=== PATIENT | female | born 1930 | race Caucasian/White ===

== ENCOUNTER 2016-05-14 00:47 | Inpatient (IN) | payer MEDICARE, BC ==
[2016-05-14] MEDS ORDERED: Sodium Chloride 0.9% 10 ML Syringe FLUSH PRN ×2 (01:12→01:51)
--- NOTE | 2016-05-14 01:47 | EDM.PDOC ---
ED HPI GENERAL MEDICAL PROBLEM - General Chief Complaint: General Stated Complaint: COUGHING Time Seen by Provider: 05/14/16 01:10 Source of Information: Reports: Patient, Family History Limitations: Reports: No limitations - History of Present Illness Onset: today, gradual Onset Date: 05/13/16 (son states the patient has become very week and is not acting right, Has a cough.) Duration: Hour(s): Location: Reports: chest Severity: moderate Improves with: Reports: None Worsens with: Reports: None Associated Symptoms: Reports: cough, fever/chills - Related Data Allergies Allergy/AdvReac Type Severity Reaction Status Date / Time No Known Allergies Allergy Verified 05/14/16 01:08 Home Meds: Home Meds Aspirin/Calcium Carbonate/Mag [Aspirin Buffered 325 mg Tab] 325 mg PO DAILY [History] Bimatoprost [LUMIGAN 0.01% Ophth Soln] 1 drop EYEBOTH QPM 06/18/14 [History] Cholecalciferol (Vitamin D3) [Vitamin D3] 2,000 unit PO DAILY 06/18/14 [History] Cyanocobalamin (Vitamin B12) [Vitamin B12] 1,000 mcg IM ONETIME 06/18/14 [ History] Diltiazem HCl [Dilt-Xr] 180 mg PO DAILY 06/18/14 [History] Ferrous Sulfate [Iron] 325 mg PO DAILY 06/18/14 [History] Ibuprofen [Advil] 200 mg PO TID 06/18/14 [History] Loratadine [Claritin] 10 mg PO DAILY 06/18/14 [History] Lutein 20 mg PO DAILY 06/18/14 [History] Lutein/Minerals/Vit A,C & E [Ocuvite] 1 tab PO DAILY 06/18/14 [History] Magnesium 200 mg PO DAILY 06/18/14 [History] Timolol Maleate [Timoptic 0.5% Ocudose] 1 drop EYELF DAILY 06/18/14 [History] Valsartan/Hydrochlorothiazide [Valsartan-Hctz 160-12.5 mg Tab] 1 each PO DAILY 06/18/14 [History] atorvaSTATin Calcium [Atorvastatin Calcium] 5 mg PO DAILY 06/18/14 [History] glipiZIDE [Glipizide ER] 10 mg PO BID 06/18/14 [History] metFORMIN [Glucophage] 1,000 mg PO BID 06/18/14 [History] Carbidopa/Levodopa [Carbidopa-Levodopa 25-100] 1.5 tab PO TID 06/19/14 [History] Clopidogrel [Plavix] 75 mg PO DAILY #30 tablet 06/19/14 [Rx] Past Medical History HEENT History: Reports: Cataract, Impaired vision, Macular degeneration Cardiovascular History: Reports: Afib, High cholesterol, Hypertension Neurological History: Reports: TIA Endocrine/Metabolic History: Reports: Diabetes, type II - Past Surgical History HEENT Surgical History: Reports: Cataract surgery Social & Family History - Tobacco Use Smoking Status *Q: Never Smoker Second Hand Smoke Exposure: No - Alcohol Use Days Per Week of Alcohol Use: 0 ED ROS GENERAL - Review of Systems Review Of Systems: See Below Constitutional: Reports: fever HEENT: Reports: No symptoms Respiratory: Reports: Cough Endocrine: Reports: fatigue GI/Abdominal: Reports: No symptoms : Reports: no symptoms Musculoskeletal: Reports: no symptoms Skin: Reports: bruising Neurological: Reports: No Symptoms Psychiatric: Reports: No symptoms Immunologic: Reports: no symptoms ED EXAM, GENERAL - Physical Exam Exam: See Below Exam Limited By: No limitations General Appearance: alert Eye Exam: bilateral eye: PERRL Ears: normal external exam, normal canal, normal TMs Nose: normal inspection, normal mucosa Throat/Mouth: Normal inspection Head: atraumatic, normocephalic Neck: normal inspection, supple Respiratory/Chest: crackles Cardiovascular: normal peripheral pulses, regular rate, rhythm GI/Abdominal: normal bowel sounds Extremities: normal inspection, normal range of motion Neurological: alert, oriented Psychiatric: normal affect, normal mood Skin Exam: Warm, Dry Lymphatic: no adenopathy Course - Vital Signs Last Recorded V/S: Last Vital Signs Temp 38.1 C 05/14/16 01:12 Pulse 107 H 05/14/16 00:56 Resp 20 05/14/16 00:56 BP 137/71 05/14/16 00:56 Pulse Ox 97 05/14/16 00:56 - Orders/Labs/Meds Orders: Active Orders 24 hr Category Date Time Status Chest 2V [CR] Stat Exams 05/14/16 01:12 Ordered COMPREHENSIVE METABOLIC PN,CMP [CHEM] Stat Lab 05/14/16 01:12 Ordered INFLUENZA A+B AG SCREEN [RM] Stat Lab 05/14/16 01:12 Uncollected UA W/MICROSCOPIC [URIN] Stat Lab 05/14/16 01:12 Uncollected Sodium Chloride 0.9% [Saline Flush] Med 05/14/16 01:12 Ordered 10 ml FLUSH ASDIRECTED PRN cefTRIAXone [Rocephin] Med 05/14/16 01:45 Ordered 1 gm IV BID Saline Lock Insert [OM.PC] Routine Oth 05/14/16 01:12 Ordered Medication Orders Ceftriaxone Sodium (Rocephin) 1 gm IV BID HANNA Sodium Chloride (Saline Flush) 10 ml FLUSH ASDIRECTED PRN PRN Reason: Keep Vein Open Labs: Laboratory Tests 05/14/16 Range/Units 01:12 WBC 8.3 (5.0-10.0) 10^3/uL RBC 3.09 L (4.00-5.50) 10^6/uL Hgb 9.8 L (12.0-16.0) g/dL Hct 29.3 L (37.0-47.0) % MCV 94.8 H (82.0-94.0) fL MCH 31.7 (27.0-32.0) pg MCHC 33.4 (33.0-38.0) g/dL RDW Coeff of Andres 13.4 (11.0-15.0) % Plt Count 259 (150-400) 10^3/uL Neut % (Auto) 62.1 (35-85) % Lymph % (Auto) 19.9 (10-55) % Garza % (Auto) 17.1 H (0-16) % Eos % (Auto) 0.7 (0-5) % Baso % (Auto) 0.2 (0-3) % Neut # 5.16 (1.80-7.00) 10^3/uL Lymph # 1.65 (1.00-4.80) 10^3/uL Garza # 1.42 H (0.00-0.80) 10^3/uL Eos # 0.06 (0.00-0.45) 10^3/uL Baso # 0.02 10^3/uL Meds: Medications Generic Name Dose Route Start Last Admin Trade Name Freq PRN Reason Stop Dose Admin Ceftriaxone Sodium 1 gm 05/14/16 01:45 Rocephin IV BID HANNA Sodium Chloride 10 ml 05/14/16 01:12 Saline Flush FLUSH ASDIRECTED PRN Keep Vein Open Departure - Departure Time of Disposition: 01:47 Disposition: Admitted As Inpatient 67 Condition: fair Clinical Impression: Pneumonia - Problem List Review Problem List Initiated/Reviewed/Updated: Yes - My Orders Last 24 Hours: My Active Orders 05/14/16 01:12 Chest 2V [CR] Stat COMPREHENSIVE METABOLIC PN,CMP [CHEM] Stat INFLUENZA A+B AG SCREEN [RM] Stat UA W/MICROSCOPIC [URIN] Stat Sodium Chloride 0.9% [Saline Flush] 10 ml FLUSH ASDIRECTED PRN Saline Lock Insert [OM.PC] Routine 05/14/16 01:45 cefTRIAXone [Rocephin] 1 gm IV BID - Assessment/Plan Admission H&P: Please use this note as an admission H&P Last 24 Hours: My Active Orders 05/14/16 01:12 Chest 2V [CR] Stat COMPREHENSIVE METABOLIC PN,CMP [CHEM] Stat INFLUENZA A+B AG SCREEN [RM] Stat UA W/MICROSCOPIC [URIN] Stat Sodium Chloride 0.9% [Saline Flush] 10 ml FLUSH ASDIRECTED PRN Saline Lock Insert [OM.PC] Routine 05/14/16 01:45 cefTRIAXone [Rocephin] 1 gm IV BID
[2016-05-14] MEDS ORDERED: Acetaminophen 325 MG Tab PO PRN (01:51)
[2016-05-14] MEDS ORDERED: Cyanocobalamin (Vitamin B12) 1,000 MCG/ML SDV IM SCH (02:15)
[2016-05-14] MEDS: cefTRIAXone 1 GM Vial IV SCH ×3 (02:51→19:57)
[2016-05-14] MEDS: Sodium Chloride 0.9% 1,000 ML IV SCH ×2 (02:57→20:09)
[2016-05-14] MEDS: Levofloxacin/Dextrose 5%-Water 500 MG in Premix Bag 1 BAG IV SCH (03:00)
[2016-05-14] MEDS ORDERED: Non-Formulary Medication 1 Each (Metformin [Glucophage] 1,000 MG) PO SCH (08:00)
[2016-05-14] MEDS ORDERED: Non-Formulary Medication 1 Each (Ibuprofen [Advil] 200 MG) PO SCH (08:00)
[2016-05-14] MEDS ORDERED: Non-Formulary Medication 1 Each (Ferrous Sulfate [Iron] 325 MG) PO SCH (08:00)
[2016-05-14] MEDS ORDERED: Non-Formulary Medication 1 Each (Aspirin/Calcium Carbonate/Mag [Aspirin Buffered 325 Mg Ta PO SCH (08:00)
[2016-05-14] MEDS ORDERED: MAGNESIUM 200 MG PO SCH (08:00)
[2016-05-14] MEDS ORDERED: Non-Formulary Medication 1 Each (Glipizide [Glipizide Er] 10 MG) PO SCH (08:00)
[2016-05-14] MEDS ORDERED: Non-Formulary Medication 1 Each (Loratadine [Claritin] 10 MG) PO SCH (08:00)
[2016-05-14] MEDS ORDERED: Non-Formulary Medication 1 Each (Lutein/Minerals/Vit A,C & E [Ocuvite] 1 TAB) PO SCH (08:00)
[2016-05-14] MEDS ORDERED: DILTIAZEM HCL 180 MG PO SCH (08:00)
[2016-05-14] MEDS ORDERED: TIMOLOL MALEATE EYELF SCH (08:00)
[2016-05-14] MEDS ORDERED: atorvaSTATin 10 MG Tab PO SCH (08:00)
[2016-05-14] MEDS ORDERED: Non-Formulary Medication 1 Each (Cholecalciferol (Vitamin D3) [Vitamin D3] 2,000 UNIT) PO SCH (08:00)
[2016-05-14] MEDS: Clopidogrel 75 MG Tab PO SCH (08:26)
[2016-05-14] MEDS: Carbidopa/Levodopa 25-100 MG Tab PO SCH ×3 (08:27→19:57)
[2016-05-14] MEDS ORDERED: Ibuprofen 200 MG Tab PO SCH (09:30)
[2016-05-14] MEDS ORDERED: Diltiazem 180 MG Cap.CD PO SCH (09:30)
[2016-05-14] MEDS ORDERED: Aspirin 325 MG Tab.EC PO SCH (09:30)
[2016-05-14] MEDS ORDERED: Beta-Carotene (Vitamin A) w/Vitamin C & E plus Minerals Tab PO SCH (09:45)
[2016-05-14] MEDS ORDERED: Albuterol 0.083% 2.5 MG/3 ML Neb Soln NEB PRN (09:45)
[2016-05-14] MEDS: Loratadine 10 MG Tab PO SCH (09:54)
[2016-05-14] MEDS: glipiZIDE 5 MG Tab.ER PO SCH ×2 (09:55→17:22)
[2016-05-14] MEDS: metFORMIN 500 MG Tab PO SCH ×2 (09:55→17:22)
[2016-05-14] MEDS: Hydrochlorothiazide 12.5 MG Cap PO SCH ×2 (09:56→12:34)
[2016-05-14] MEDS: Cholecalciferol (Vitamin D3) 1,000 Unit Tab PO SCH (09:56)
[2016-05-14] MEDS: Losartan 100 MG Tab PO SCH (09:56)
[2016-05-14] MEDS: Non-Formulary Medication 1 Each (Lutein [Lutein] 20 MG) PO SCH (09:59)
[2016-05-14] MEDS ORDERED: Enoxaparin 40 MG/0.4 ML Syringe SUBCUT SCH (10:00)
--- NOTE | 2016-05-14 10:00 | PCM.PN ---
- General Info Date of Service: 05/14/16 Functional Status: Reports: pain controlled, tolerating diet, ambulating - Review of Systems General: Reports: No Symptoms, Weakness HEENT: Reports: no symptoms Pulmonary: Reports: cough, other Cardiovascular: Reports: No Symptoms Gastrointestinal: Reports: No symptoms Genitourinary: Reports: no symptoms Musculoskeletal: Reports: no symptoms Skin: Reports: no symptoms Neurological: Reports: No Symptoms Psychiatric: Reports: no symptoms (Still hearing crackles in right lower lung bases) Systems Review Comment:: Still some crackels in the right lower lung bases. States she feels much better this morning, and looks to be improving. - Patient Data Vitals - most recent: Last Vital Signs Temp 37.9 C 05/14/16 04:00 Pulse 96 05/14/16 04:00 Resp 16 05/14/16 04:00 BP 104/56 L 05/14/16 04:00 Pulse Ox 94 L 05/14/16 04:00 Weight - most recent: 80.286 kg Lab Results last 24 hrs: Laboratory Results - last 24 hr 05/14/16 Range/Units 08:13 POC Glucose 113 H (75-105) mg/dl Med Orders - Current: Current Medications Acetaminophen (Tylenol) 650 mg PO Q4H PRN PRN Reason: Pain (Mild 1-3)/fever Last Admin: 05/14/16 04:02 Dose: 650 mg Albuterol (Proventil Neb Soln) 2.5 mg NEB Q4H PRN PRN Reason: Dyspnea Albuterol/Ipratropium (Duoneb 3.0-0.5 Mg/3 Ml) 3 ml NEB QIDRT [facility] Aspirin (Ecotrin) 325 mg PO DAILY [facility] Atorvastatin Calcium (Lipitor) 5 mg PO DAILY [facility] Last Admin: 05/14/16 08:28 Dose: 5 mg Carbidopa/Levodopa (Sinemet 25-100 Mg) 1.5 tab PO TID [facility] Last Admin: 05/14/16 08:27 Dose: 1.5 tab Ceftriaxone Sodium (Rocephin) 1 gm IV BID [facility] Last Admin: 05/14/16 08:28 Dose: 1 gm Cholecalciferol (Vitamin D3) 2,000 units PO DAILY [facility] Clopidogrel Bisulfate (Plavix) 75 mg PO DAILY [facility] Last Admin: 05/14/16 08:26 Dose: 75 mg Cyanocobalamin (Vitamin B12) 1,000 mcg IM ONETIME [facility] Diltiazem HCl (Cardizem Cd) 180 mg PO DAILY [facility] Ferrous Sulfate (Ferrous Sulfate) 324 mg PO DAILY@1200 [facility] Glipizide (Glucotrol Xl) 10 mg PO BIDMEALS [facility] Hydrochlorothiazide (Hydrochlorothiazide) 12.5 mg PO DAILY [facility] Levofloxacin/Dextrose 500 mg/ (Premix) 100 mls @ 100 mls/hr IV Q24H [facility] Last Admin: 05/14/16 03:00 Dose: 100 mls/hr Sodium Chloride (Normal Saline) 1,000 mls @ 50 mls/hr IV ASDIRECTED [facility] Last Admin: 05/14/16 02:57 Dose: 50 mls/hr Ibuprofen (Motrin) 200 mg PO TID [facility] Latanoprost (Xalatan 0.005% Ophth Soln) 0 ml EYEBOTH QPM [facility] Loratadine (Claritin) 10 mg PO DAILY [facility] Losartan Potassium (Cozaar) 100 mg PO DAILY [facility] Magnesium Oxide (Magnesium Oxide) 250 mg PO DAILY [facility] Metformin HCl (Glucophage) 1,000 mg PO BIDMEALS [facility] Multivitamins/Minerals (Prosight) 1 tab PO DAILY [facility] Non-Formulary Medication (Lutein [Lutein]) 20 mg PO DAILY [facility] Sodium Chloride (Saline Flush) 10 ml FLUSH ASDIRECTED PRN PRN Reason: Keep Vein Open Sodium Chloride (Saline Flush) 10 ml FLUSH ASDIRECTED PRN PRN Reason: Keep Vein Open Timolol Maleate (Timoptic 0.5% Ophth Soln) 0 ml EYELF DAILY [facility] Discontinued Medications Non-Formulary Medication (Aspirin/Calcium Carbonate/Mag [Aspirin Buffered 325 Mg Tab]) 325 mg PO DAILY [facility] Non-Formulary Medication (Bimatoprost [Lumigan 0.01% Ophth Soln]) 1 drop EYEBOTH QPM [facility] Non-Formulary Medication (Cholecalciferol (Vitamin D3) [Vitamin D3]) 2,000 unit PO DAILY [facility] Non-Formulary Medication (Diltiazem Hcl [Dilt-Xr]) 180 mg PO DAILY [facility] Non-Formulary Medication (Ferrous Sulfate [Iron]) 325 mg PO DAILY [facility] Non-Formulary Medication (Ibuprofen [Advil]) 200 mg PO TID [facility] Non-Formulary Medication (Loratadine [Claritin]) 10 mg PO DAILY [facility] Non-Formulary Medication (Lutein/Minerals/Vit A,C & E [Ocuvite]) 1 tab PO DAILY [facility] Non-Formulary Medication (Magnesium [Magnesium]) 200 mg PO DAILY [facility] Non-Formulary Medication (Timolol Maleate [Timoptic 0.5% Ocudose]) 1 drop EYELF DAILY [facility] Non-Formulary Medication (Valsartan/Hydrochlorothiazide [Valsartan-Hctz 160- 12.5 Mg Tab]) 1 each PO DAILY [facility] Non-Formulary Medication (Glipizide [Glipizide Er]) 10 mg PO BID [facility] Non-Formulary Medication (Metformin [Glucophage]) 1,000 mg PO BID [facility] - Problem List Review Problem List Initiated/Reviewed/Updated: Yes - My Orders Last 24 Hours: My Active Orders 05/14/16 09:30 Aspirin [Ecotrin] 325 mg PO DAILY Cholecalciferol (Vitamin D3) [Vitamin D3] 2,000 units PO DAILY Diltiazem [Cardizem CD] 180 mg PO DAILY Ibuprofen [Motrin] 200 mg PO TID Loratadine [Claritin] 10 mg PO DAILY glipiZIDE [Glucotrol XL] 10 mg PO BIDMEALS metFORMIN [Glucophage] 1,000 mg PO BIDMEALS 05/14/16 09:43 RT Aerosol Therapy [RC] ASDIRECTED 05/14/16 09:45 Albuterol [Proventil Neb Soln] 2.5 mg NEB Q4H PRN Beta-Carotene(A) w/C & E/Min [Prosight] 1 tab PO DAILY Hydrochlorothiazide 12.5 mg PO DAILY Losartan [Cozaar] 100 mg PO DAILY Magnesium Oxide 250 mg PO DAILY 05/14/16 09:47 RT Aerosol Therapy [RC] ASDIRECTED 05/14/16 10:00 Timolol Maleate [Timoptic 0.5% Ophth Soln] 0 ml EYELF DAILY 05/14/16 12:00 Ferrous Sulfate 324 mg PO DAILY@1200 05/14/16 13:00 Albuterol/Ipratropium [DuoNeb 3.0-0.5 MG/3 ML] 3 ml NEB QIDRT 05/14/16 20:00 Latanoprost [Xalatan 0.005% Ophth Soln] 0 ml EYEBOTH QPM - Plan Plan:: Will continue on antibiotics and mild rehydration. Patient looks very good and states she must have been sick because she feels so much better now.
[2016-05-14] MEDS ORDERED: Ferrous Sulfate 324 MG Tab.EC PO SCH (12:00)
[2016-05-14] MEDS: Timolol Maleate 0.5% Ophth Soln 5 ML Bottle EYELF SCH (12:12)
[2016-05-14] MEDS: Albuterol/Ipratropium 3.0-0.5 MG/3 ML Neb Soln NEB SCH ×3 (12:35→20:00)
[2016-05-14] MEDS ORDERED: Non-Formulary Medication 1 Each (Bimatoprost [Lumigan 0.01% Ophth Soln] 1 DROP) EYEBOTH SCH (20:00)
[2016-05-14] MEDS: Latanoprost 0.005% Ophth Soln 2.5 ML Bottle EYEBOTH SCH (20:05)
[2016-05-15] MEDS: Levofloxacin/Dextrose 5%-Water 500 MG in Premix Bag 1 BAG IV SCH (01:39)
[2016-05-15] MEDS ORDERED: IRON PO SCH (08:00)
[2016-05-15] MEDS: Cholecalciferol (Vitamin D3) 1,000 Unit Tab PO SCH (08:18)
[2016-05-15] MEDS: cefTRIAXone 1 GM Vial IV SCH ×2 (08:18→20:33)
[2016-05-15] MEDS: Hydrochlorothiazide 12.5 MG Cap PO SCH ×2 (08:19→08:20)
[2016-05-15] MEDS: Loratadine 10 MG Tab PO SCH (08:19)
[2016-05-15] MEDS: metFORMIN 500 MG Tab PO SCH ×2 (08:19→17:19)
[2016-05-15] MEDS: Losartan 100 MG Tab PO SCH (08:20)
[2016-05-15] MEDS: Carbidopa/Levodopa 25-100 MG Tab PO SCH ×3 (08:20→20:35)
[2016-05-15] MEDS: Multivitamin Tab PO SCH (08:20)
[2016-05-15] MEDS: Clopidogrel 75 MG Tab PO SCH (08:21)
[2016-05-15] MEDS: atorvaSTATin 20 MG Tab PO SCH (08:21)
[2016-05-15] MEDS: Non-Formulary Medication 1 Each (Lutein [Lutein] 20 MG) PO SCH (08:24)
[2016-05-15] MEDS: Timolol Maleate 0.5% Ophth Soln 5 ML Bottle EYELF SCH (08:24)
[2016-05-15] MEDS: Albuterol/Ipratropium 3.0-0.5 MG/3 ML Neb Soln NEB SCH ×4 (09:17→20:35)
[2016-05-15] MEDS: glipiZIDE 5 MG Tab.ER PO SCH ×2 (10:01→17:19)
--- NOTE | 2016-05-15 10:03 | PN ---
DATE: 05/15/2016 S: Alida Fernandez is in with a pneumonia. I have not seen her chest x-ray. She came in fever and chills, feels better today. O: GENERAL: The patient is alert and orientated. VITAL SIGNS: As noted. NECK: Supple. CHEST: Little crepitus bilaterally. CARDIAC: Sounds are good. No edema. LABORATORY DATA: Blood sugars are elevated. Hemoglobin is 9.8. Question etiology of that, we will have to follow that. ASSESSMENT: PNEUMONITIS; DIABETES MELLITUS; ANEMIA, QUESTION ETIOLOGY. PRAVIN/JUSTIN /[id number]
[2016-05-15] MEDS ORDERED: Enoxaparin 40 MG/0.4 ML Syringe SUBCUT SCH (20:00)
[2016-05-15] MEDS: Latanoprost 0.005% Ophth Soln 2.5 ML Bottle EYEBOTH SCH (20:38)
[2016-05-16] MEDS: glipiZIDE 5 MG Tab.ER PO SCH (07:57)
[2016-05-16] MEDS: cefTRIAXone 1 GM Vial IV SCH (07:57)
[2016-05-16] MEDS: metFORMIN 500 MG Tab PO SCH (07:57)
[2016-05-16] MEDS: Cholecalciferol (Vitamin D3) 1,000 Unit Tab PO SCH (07:58)
[2016-05-16] MEDS: atorvaSTATin 20 MG Tab PO SCH (07:58)
[2016-05-16] MEDS: Clopidogrel 75 MG Tab PO SCH (07:59)
[2016-05-16] MEDS: Hydrochlorothiazide 12.5 MG Cap PO SCH ×2 (08:00→08:02)
[2016-05-16] MEDS ORDERED: Levofloxacin/Dextrose 5%-Water 250 MG in Premix Bag 1 BAG IV SCH (08:00)
[2016-05-16] MEDS: Losartan 100 MG Tab PO SCH (08:00)
[2016-05-16] MEDS: Loratadine 10 MG Tab PO SCH (08:00)
[2016-05-16] MEDS: Multivitamin Tab PO SCH (08:00)
[2016-05-16] MEDS: Carbidopa/Levodopa 25-100 MG Tab PO SCH (08:04)
[2016-05-16] MEDS: Non-Formulary Medication 1 Each (Lutein [Lutein] 20 MG) PO SCH (08:04)
[2016-05-16 08:05] VITALS: BP 132/69
[2016-05-16] MEDS: Timolol Maleate 0.5% Ophth Soln 5 ML Bottle EYELF SCH (09:00)
[2016-05-16] MEDS: Albuterol/Ipratropium 3.0-0.5 MG/3 ML Neb Soln NEB SCH (09:13)
--- NOTE | 2016-05-16 09:57 | DISCH ---
HOSPITAL COURSE: This is an 85-year-old female came in, what I believe, with a bronchiolitis. I reviewed her chest x-ray, I did not see any definite infiltrate, admitted to the hospital, started on IV antibiotics, and RT treatments. She responded nicely. At the time of discharge, she was afebrile. Lungs were relatively clear. She said she felt great. On admission, she had a hemoglobin of 9.8 and I am rechecking that this morning. B12 and folate levels, B12 is a little bit low but she is on B12 injections. Mildly elevated alkaline phosphatase. Urinalysis showed some glycosuria. Blood sugars on the were 102. DISPOSITION: The patient now discharged to home. We will see her back in the clinic in 1 week and I will do a CBC and watch that hemoglobin. I think this patient has refused colonoscopies in the past. DISCHARGE MEDICATIONS: Home medications plus Z-Robel. DISCHARGE DIAGNOSIS: 1. BRONCHIOLITIS. 2. DIABETES MELLITUS. 3. PARKINSON'S. 4. PERNICIOUS ANEMIA. 5. HYPERTENSION. 6. HYPERLIPIDEMIA. PRAVIN/JUSTIN /[id number]
== END 2016-05-16 11:20 | disposition home or self-care (01) | DRG 203 ==
LOC: CC.ED 00:47 → CC.MS 01:51 → UNDOADMIN 02:30 → CC.MS 02:30
PROVIDERS: ADMIT Nurse Practitioner Family; ATTEND General Practice
DX: J18.9 Pneumonia, unspecified organism (principal); J21.9 Acute bronchiolitis, unspecified; E11.9 Type 2 diabetes mellitus without complications; G20 Parkinson's disease; D51.0 Vitamin B12 deficiency anemia due to intrinsic factor deficiency; I10 Essential (primary) hypertension; E78.5 Hyperlipidemia, unspecified; Z79.84 Long term (current) use of oral hypoglycemic drugs; I48.2 Chronic atrial fibrillation; Z86.73 Personal history of transient ischemic attack (TIA), and cerebral infarction without residual deficits
CPT/HCPCS: 36415; 71020; 80053; 81001; 82270; 82607; 82728; 82746; 82962; 85025; 87804; 93005; 94640; 94640-76; 99284; A9270-GY; J0696; J1650; J1956; J7030

== ENCOUNTER 2019-03-01 11:45 | Inpatient (IN) | payer MEDICARE, BC ==
[2019-03-01 12:51] LABS: CHLORIDE,CL 99 mEq/L (98-106); SODIUM,NA 138 mEq/L (136-145)
[2019-03-01] MEDS ORDERED: Levofloxacin/Dextrose 5%-Water 750 MG in Premix Bag 1 BAG IV SCH (14:00)
[2019-03-01] MEDS ORDERED: Albuterol/Ipratropium 3.0-0.5 MG/3 ML Neb Soln NEB PRN (14:38)
[2019-03-01] MEDS ORDERED: Ibuprofen 200 MG Tab PO PRN (14:38)
[2019-03-01] MEDS ORDERED: Ondansetron 4 MG/2 ML SDV IV PRN (14:38)
[2019-03-01] MEDS ORDERED: Acetaminophen 325 MG Tab PO PRN (14:38)
[2019-03-01] MEDS ORDERED: Morphine 2 MG/ML Syringe IVPUSH PRN (14:38)
[2019-03-01] MEDS ORDERED: Sodium Chloride 0.9% 500 ML IV SCH (14:45)
[2019-03-01] MEDS: Albuterol/Ipratropium 3.0-0.5 MG/3 ML Neb Soln NEB SCH (19:55)
[2019-03-01] MEDS: glipiZIDE 5 MG Tab.ER PO SCH (19:55)
[2019-03-01] MEDS: metFORMIN 500 MG Tab PO SCH (19:55)
[2019-03-01] MEDS: Carbidopa/Levodopa 25-100 MG Tab PO SCH (19:55)
[2019-03-01] MEDS: Latanoprost 0.005% Ophth Soln 2.5 ML Bottle EYEBOTH SCH (20:00)
[2019-03-01] MEDS ORDERED: Carbidopa/Levodopa 25-100 MG Tab PO SCH (20:00)
[2019-03-01] MEDS: Enoxaparin 40 MG/0.4 ML Syringe SUBCUT SCH (20:00)
[2019-03-02] MEDS ORDERED: Non-Formulary Medication 1 Each (Hydrochlorothiazide [Hydrochlorothiazide] 12.5 MG) PO SCH (08:00)
[2019-03-02] MEDS ORDERED: Non-Formulary Medication 1 Each (Loratadine [Claritin] 10 MG) PO SCH (08:00)
[2019-03-02] MEDS ORDERED: Non-Formulary Medication 1 Each (Lutein [Lutein] 20 MG) PO SCH (08:00)
[2019-03-02] MEDS ORDERED: Non-Formulary Medication 1 Each (Aspirin/Calcium Carbonate/Mag [Aspirin Buffered 325 Mg Ta PO SCH (08:00)
[2019-03-02] MEDS: Calcium Carbonate/Magnesium Oxide/Zinc Oxide Tab PO SCH (08:46)
[2019-03-02] MEDS: metFORMIN 500 MG Tab PO SCH ×2 (08:47→20:01)
[2019-03-02] MEDS: Albuterol/Ipratropium 3.0-0.5 MG/3 ML Neb Soln NEB SCH ×2 (08:47→20:00)
[2019-03-02] MEDS: Carbidopa/Levodopa 25-100 MG Tab PO SCH ×2 (08:48→20:00)
[2019-03-02] MEDS: Clopidogrel 75 MG Tab PO SCH (08:48)
[2019-03-02] MEDS: Cholecalciferol (Vitamin D3) 25 MCG Tab PO SCH (08:48)
[2019-03-02] MEDS: atorvaSTATin 20 MG Tab PO SCH (08:48)
[2019-03-02] MEDS: Hydrochlorothiazide 12.5 MG Cap PO SCH (08:48)
[2019-03-02] MEDS: Losartan 100 MG Tab PO SCH (08:48)
[2019-03-02] MEDS: Multivitamin Tab PO SCH (08:49)
[2019-03-02] MEDS: glipiZIDE 5 MG Tab.ER PO SCH ×2 (08:49→20:00)
[2019-03-02] MEDS: Timolol Maleate 0.5% Ophth Soln 5 ML Bottle EYELF SCH (08:53)
[2019-03-02] MEDS: Iron Polysaccharides Complex 150 MG Cap PO SCH (12:11)
--- NOTE | 2019-03-02 15:11 | PCM.PN ---
- General Info Date of Service: 03/02/19 Functional Status: Reports: Pain Controlled, Tolerating Diet, Ambulating, Urinating - Review of Systems General: Reports: No Symptoms. Denies: Fever HEENT: Reports: Post Nasal Drip, Rhinitis Pulmonary: Reports: Cough, Sputum. Denies: Shortness of Breath Cardiovascular: Reports: No Symptoms Gastrointestinal: Reports: No Symptoms Genitourinary: Reports: No Symptoms Musculoskeletal: Reports: No Symptoms Skin: Reports: No Symptoms Neurological: Reports: No Symptoms Psychiatric: Reports: No Symptoms - Patient Data Vitals - Most Recent: Last Vital Signs Temp 99 F 03/02/19 12:00 Pulse 85 03/02/19 12:00 Resp 20 03/02/19 12:00 BP 151/65 H 03/02/19 12:00 Pulse Ox 98 03/02/19 12:00 Weight - Most Recent: 182 lb 1.6 oz Lab Results Last 24 Hours: Laboratory Results - last 24 hr 03/01/19 03/02/19 03/02/19 Range/Units 19:59 07:15 07:15 WBC 8.8 (5.0-10.0) 10^3/uL RBC 3.18 L (4.00-5.50) 10^6/uL Hgb 10.1 L (12.0-16.0) g/dL Hct 30.4 L (37.0-47.0) % MCV 95.6 H (82.0-94.0) fL MCH 31.8 (27.0-32.0) pg MCHC 33.2 (33.0-38.0) g/dL RDW Coeff of Andres 13.8 (11.0-15.0) % Plt Count 248 (150-400) 10^3/uL Neut % (Auto) 67.5 (35-85) % Lymph % (Auto) 19.3 (10-55) % Pickett % (Auto) 11.0 (0-16) % Eos % (Auto) 2.1 (0-5) % Baso % (Auto) 0.1 (0-3) % Neut # (Auto) 5.96 (1.80-7.00) 10^3/uL Lymph # (Auto) 1.71 (1.00-4.80) 10^3/uL Pickett # (Auto) 0.97 H (0.00-0.80) 10^3/uL Eos # (Auto) 0.19 (0.00-0.45) 10^3/uL Baso # (Auto) 0.01 10^3/uL Sodium 141 (136-145) mEq/L Potassium 4.1 (3.5-5.0) mEq/L Chloride 103 (98-106) mEq/L Carbon Dioxide 27 (21-32) mmol/L BUN 19 H (7-18) mg/dL Creatinine 1.0 (0.6-1.0) mg/dL Est Cr Clr Drug Dosing 32.79 mL/min Estimated GFR (MDRD) 52 L (>=60) mL/min Glucose 75 D (75-99) mg/dL POC Glucose 187 H (75-105) mg/dl Calcium 9.1 (8.4-10.1) mg/dL C-Reactive Protein 4.7 H (0.2-0.8) mg/dL 03/02/19 Range/Units 08:08 WBC (5.0-10.0) 10^3/uL RBC (4.00-5.50) 10^6/uL Hgb (12.0-16.0) g/dL Hct (37.0-47.0) % MCV (82.0-94.0) fL MCH (27.0-32.0) pg MCHC (33.0-38.0) g/dL RDW Coeff of Andres (11.0-15.0) % Plt Count (150-400) 10^3/uL Neut % (Auto) (35-85) % Lymph % (Auto) (10-55) % Pickett % (Auto) (0-16) % Eos % (Auto) (0-5) % Baso % (Auto) (0-3) % Neut # (Auto) (1.80-7.00) 10^3/uL Lymph # (Auto) (1.00-4.80) 10^3/uL Pickett # (Auto) (0.00-0.80) 10^3/uL Eos # (Auto) (0.00-0.45) 10^3/uL Baso # (Auto) 10^3/uL Sodium (136-145) mEq/L Potassium (3.5-5.0) mEq/L Chloride (98-106) mEq/L Carbon Dioxide (21-32) mmol/L BUN (7-18) mg/dL Creatinine (0.6-1.0) mg/dL Est Cr Clr Drug Dosing mL/min Estimated GFR (MDRD) (>=60) mL/min Glucose (75-99) mg/dL POC Glucose 80 (75-105) mg/dl Calcium (8.4-10.1) mg/dL C-Reactive Protein (0.2-0.8) mg/dL Armando Results Last 24 Hours: Microbiology 03/01/19 11:50 Aerobic Blood Culture - Preliminary Blood NO GROWTH AFTER 1 DAY Anaerobic Blood Culture - Final 03/01/19 23:09 Gram Stain - Final Sputum - Expectorated Med Orders - Current: Current Medications Acetaminophen (Tylenol) 650 mg PO Q4H PRN PRN Reason: Pain (Mild 1-3)/fever Albuterol/Ipratropium (Duoneb 3.0-0.5 Mg/3 Ml) 3 ml NEB Q4H PRN PRN Reason: Shortness Of Breath/wheezing Last Admin: 03/01/19 15:45 Dose: 3 ml Albuterol/Ipratropium (Duoneb 3.0-0.5 Mg/3 Ml) 3 ml NEB BIDRT [facility] Last Admin: 03/02/19 08:47 Dose: 3 ml Atorvastatin Calcium (Lipitor) 40 mg PO DAILY [facility] Last Admin: 03/02/19 08:48 Dose: 40 mg Calcium/Magnesium/Zinc (Calcium & Magnesium Plus Zinc) 1 tab PO DAILY [facility] Last Admin: 03/02/19 08:46 Dose: 1 tab Carbidopa/Levodopa (Sinemet 25-100 Mg) 1.5 tab PO BID [facility] Last Admin: 03/02/19 08:48 Dose: 1.5 tab Cholecalciferol (Vitamin D3) 50 mcg PO DAILY [facility] Last Admin: 03/02/19 08:48 Dose: 50 mcg Clopidogrel Bisulfate (Plavix) 75 mg PO DAILY [facility] Last Admin: 03/02/19 08:48 Dose: 75 mg Enoxaparin Sodium (Lovenox) 40 mg SUBCUT Q24H [facility] Last Admin: 03/01/19 20:00 Dose: 40 mg Glipizide (Glucotrol Xl) 10 mg PO BID [facility] Last Admin: 03/02/19 08:49 Dose: 10 mg Hydrochlorothiazide (Hydrochlorothiazide) 12.5 mg PO DAILY [facility] Last Admin: 03/02/19 08:48 Dose: 12.5 mg Levofloxacin/Dextrose 750 mg/ (Premix) 150 mls @ 100 mls/hr IV Q48H [facility] Ibuprofen (Motrin) 600 mg PO Q6H PRN PRN Reason: Pain (mild 1-3) Latanoprost (Xalatan 0.005% Ophth Soln) 0 ml EYEBOTH BEDTIME [facility] Last Admin: 03/01/19 20:00 Dose: 1 drop Losartan Potassium (Cozaar) 100 mg PO DAILY [facility] Last Admin: 03/02/19 08:48 Dose: 100 mg Metformin HCl (Glucophage) 1,000 mg PO BID [facility] Last Admin: 03/02/19 08:47 Dose: 1,000 mg Morphine Sulfate (Morphine) 2 mg IVPUSH Q2H PRN PRN Reason: Pain (severe 7-10) Multivitamins/Minerals/Vitamin C (Tab-A-Stephanie) 1 tab PO DAILY [facility] Last Admin: 03/02/19 08:49 Dose: 1 tab Ondansetron HCl (Zofran) 4 mg IV Q6H PRN PRN Reason: Nausea/Vomiting Polysaccharide Iron Complex (Ferrex 150) 150 mg PO DAILY [facility] Last Admin: 03/02/19 12:11 Dose: 150 mg Timolol Maleate (Timoptic 0.5% Ophth Soln) 0 ml EYELF DAILY [facility] Last Admin: 03/02/19 08:53 Dose: 1 drop Discontinued Medications Carbidopa/Levodopa (Sinemet 25-100 Mg) 1.5 tab PO TID [facility] Levofloxacin/Dextrose 750 mg/ (Premix) 150 mls @ 100 mls/hr IV Q24H [facility] Last Admin: 03/01/19 15:33 Dose: 100 mls/hr Sodium Chloride (Normal Saline) 500 mls @ 500 mls/hr IV BOLUS [facility] Stop: 03/01/19 15:44 Last Admin: 03/01/19 17:12 Dose: 500 mls/hr Non-Formulary Medication (Aspirin/Calcium Carbonate/Mag [Aspirin Buffered 325 Mg Tab]) 325 mg PO DAILY [facility] Last Admin: 03/02/19 11:12 Dose: Not Given Non-Formulary Medication (Hydrochlorothiazide [Hydrochlorothiazide]) 12.5 mg PO DAILY [facility] Non-Formulary Medication (Loratadine [Claritin]) 10 mg PO DAILY [facility] Last Admin: 03/02/19 11:12 Dose: Not Given Non-Formulary Medication (Lutein [Lutein]) 20 mg PO DAILY [facility] Last Admin: 03/02/19 11:12 Dose: Not Given - Exam General: Alert, Oriented, Cooperative, No Acute Distress Lungs: Rhonchi (mild RLL, otherwise clear. Much improved since yesterday.) Cardiovascular: Regular Rate, Regular Rhythm GI/Abdominal Exam: Normal Bowel Sounds, Soft, Non-Tender Extremities: Normal Inspection, Normal Range of Motion, Non-Tender, No Pedal Edema, Normal Capillary Refill Peripheral Pulses: 2+: Radial (L), Radial (R), Posterior Tibial (L), Posterior Tibial (R) Skin: Warm, Dry, Intact Neurological: No New Focal Deficit Psy/Mental Status: Alert, Normal Affect, Normal Mood Sepsis Event Note - Evaluation Sepsis Screening Result: No Definite Risk - Focused Exam Vital Signs: Vital Signs Temp Pulse Resp BP BP Pulse Ox 03/02/19 12:00 99 F 85 20 151/65 H 98 03/02/19 08:48 117/52 L 03/02/19 08:00 99.2 F 80 20 117/52 L 97 03/02/19 04:00 98.6 F 85 18 133/54 L 100 Date Exam was Performed: 03/02/19 Time Exam was Performed: 23:57 - Problem List Review Problem List Initiated/Reviewed/Updated: Yes - My Orders Last 24 Hours: My Active Orders 03/01/19 14:38 Patient Status [ADT] Routine Oxygen Therapy [RC] .PRN Vital Signs [RC] 0800,1200,1600,2000,0000,0400 Acetaminophen [Tylenol] 650 mg PO Q4H PRN Albuterol/Ipratropium [DuoNeb 3.0-0.5 MG/3 ML] 3 ml NEB Q4H PRN Ibuprofen [Motrin] 600 mg PO Q6H PRN Morphine 2 mg IVPUSH Q2H PRN Ondansetron [Zofran] 4 mg IV Q6H PRN Resuscitation Status Routine 03/01/19 14:39 Notify Provider Vital Signs [RC] .PRN Antiembolic Hose [OM.PC] Per Unit Routine 03/01/19 14:40 Antiembolic Devices [RC] 1000,2200 03/01/19 14:46 RT Aerosol Therapy [RC] 0800,199903/01/19 20:00 Albuterol/Ipratropium [DuoNeb 3.0-0.5 MG/3 ML] 3 ml NEB BIDRT Carbidopa/Levodopa [Sinemet 25-100 mg] 1.5 tab PO BID Enoxaparin [Lovenox] 40 mg SUBCUT Q24H Latanoprost [Xalatan 0.005% Ophth Soln] 0 ml EYEBOTH BEDTIME glipiZIDE [Glucotrol XL] 10 mg PO BID metFORMIN [Glucophage] 1,000 mg PO BID 03/01/19 23:09 CULTURE SPUTUM + SMEAR [RM] Stat 03/01/19 Dinner Consistent Carbohydrate Diet (Diabetic) [Consistent Carbohydrate Diet] [DIET] 03/02/19 08:00 Calcium/Magnesium/Zinc [Calcium & Magnesium plus Zinc] 1 tab PO DAILY Cholecalciferol (Vitamin D3) [Vitamin D3] 50 mcg PO DAILY Clopidogrel [Plavix] 75 mg PO DAILY Iron Polysaccharides Complex [Ferrex 150] 150 mg PO DAILY Losartan [Cozaar] 100 mg PO DAILY Multivitamins [Tab-A-Stephanie] 1 tab PO DAILY Timolol Maleate [Timoptic 0.5% Ophth Soln] 0 ml EYELF DAILY atorvaSTATin [Lipitor] 40 mg PO DAILY hydroCHLOROthiazide 12.5 mg PO DAILY 03/03/19 05:00 BASIC METABOLIC PANEL,BMP [CHEM] DAILY C-REACTIVE PROTEIN [CHEM] DAILY CBC WITH AUTO DIFF [HEME] DAILY 03/03/19 14:00 Levofloxacin/Dextrose 5%-Water [Levaquin in D5W 750 MG/150 ML] 750 mg Premix Bag 1 bag IV Q48H 03/04/19 05:00 BASIC METABOLIC PANEL,BMP [CHEM] DAILY C-REACTIVE PROTEIN [CHEM] DAILY CBC WITH AUTO DIFF [HEME] DAILY - Plan Plan:: This patient was admitted yesterday for possible pneumonia/acute bronchitis. Patient today reports she is feeling much better. She reports she is moving a lot more air and is feeling better. Patient reports that she is glad she was admitted. Patient labs are much improved today. No wbc elevation today. I antipicate this patient to be discharged home Sunday or Sunday.
[2019-03-02] MEDS: Enoxaparin 40 MG/0.4 ML Syringe SUBCUT SCH (20:02)
[2019-03-02] MEDS: Latanoprost 0.005% Ophth Soln 2.5 ML Bottle EYEBOTH SCH (20:17)
[2019-03-03 04:07] VITALS: PULSE 86
[2019-03-03] MEDS: Calcium Carbonate/Magnesium Oxide/Zinc Oxide Tab PO SCH (07:48)
[2019-03-03] MEDS: metFORMIN 500 MG Tab PO SCH (07:48)
[2019-03-03] MEDS: Carbidopa/Levodopa 25-100 MG Tab PO SCH (07:49)
[2019-03-03] MEDS: Iron Polysaccharides Complex 150 MG Cap PO SCH (07:49)
[2019-03-03] MEDS: Albuterol/Ipratropium 3.0-0.5 MG/3 ML Neb Soln NEB SCH (07:49)
[2019-03-03] MEDS: atorvaSTATin 20 MG Tab PO SCH (07:49)
[2019-03-03] MEDS: Cholecalciferol (Vitamin D3) 25 MCG Tab PO SCH (07:50)
[2019-03-03] MEDS: Hydrochlorothiazide 12.5 MG Cap PO SCH (07:51)
[2019-03-03] MEDS: Losartan 100 MG Tab PO SCH (07:51)
[2019-03-03] MEDS: Clopidogrel 75 MG Tab PO SCH (07:51)
[2019-03-03] MEDS: glipiZIDE 5 MG Tab.ER PO SCH (07:51)
[2019-03-03] MEDS: Multivitamin Tab PO SCH (07:52)
[2019-03-03 07:53] VITALS: BP 136/62
[2019-03-03] MEDS: Timolol Maleate 0.5% Ophth Soln 5 ML Bottle EYELF SCH (07:53)
--- NOTE | 2019-03-03 11:10 | PCM.DCSUM1 ---
Discharge Summary - Hospital Course Free Text/Narrative:: Alida is an 88 year old with history of Parkinson's Disease who presented to Sunday am clinic for complaints of ongoing upper respiratory symptoms. Had been placed on a Z pack 4 days prior but symptoms were worsening. Chest tight, cough moist. Fatigue/weakness. Had noted that her sinus congestion was stable , increase in postnasal drainage. No fevers. WBC was elevated at 10.4, lactic acid 3.7. Xray concerning for infiltrate. Admitted and started on IV Levaquin. Diagnosis: Stroke: No Modified Zane Scale: No Symptoms at All Modified [place] Scale Score: 0 - Discharge Data Discharge Date: 03/03/19 Discharge Disposition: Home, Self-Care 01 Condition: Fair - Referral to Home Health Primary Care Physician: Kaylin Cole NP - Patient Summary/Data Complications: none Hospital Course: Patient admits to feeling much better than on admit. Had chest congestion with moist cough, feels more dry and less frequent now. Nonproductive. No fevers. Lung sounds show mild rhonchi in the bases. Good air exchange. Oxygen sats have been good at 93-95% on room air. WBC is stable today at 8.0, down from 10.4. CRP is 5.2. Is up and ambulatory with walker, steady as per her norm. Will discharge home on oral Levaquin. Follow up in one week. - Patient Instructions Diet: Diabetic Diet Activity: As Tolerated - Discharge Plan *PRESCRIPTION DRUG MONITORING PROGRAM REVIEWED*: No *COPY OF PRESCRIPTION DRUG MONITORING REPORT IN PATIENT JESSICA: No Prescriptions/Med Rec: Levofloxacin [Levaquin] 500 mg PO DAILY #7 tablet Home Medications: Home Meds Bimatoprost [LUMIGAN 0.01% Ophth Soln] 1 drop EYEBOTH BEDTIME 06/18/14 [History] Cholecalciferol (Vitamin D3) [Vitamin D3] 2,000 unit PO DAILY 06/18/14 [History] Cyanocobalamin (Vitamin B12) [Vitamin B12] 1,000 mcg IM Q30D 06/18/14 [History] Lutein 20 mg PO DAILY 06/18/14 [History] Timolol Maleate [Timoptic 0.5% Ocudose] 1 drop EYELF DAILY 06/18/14 [History] Valsartan/Hydrochlorothiazide [Valsartan-Hctz 160-12.5 mg Tab] 1 each PO DAILY 06/18/14 [History] atorvaSTATin Calcium [Atorvastatin Calcium] 40 mg PO BEDTIME 06/18/14 [History] glipiZIDE [Glipizide ER] 10 mg PO BID 06/18/14 [History] metFORMIN [Glucophage] 1,000 mg PO BID 06/18/14 [History] Carbidopa/Levodopa [Carbidopa-Levodopa 25-100] 1.5 tab PO BID 06/19/14 [History] Clopidogrel [Plavix] 75 mg PO DAILY #30 tablet 06/19/14 [Rx] Calcium Carb/D3/Magnesium/Zinc [Raghu Mag Zinc + D Tablet] 1 tab PO DAILY [History] Iron 1 tab PO DAILY 05/14/16 [History] Multivitamin [Multi-Vitamin Daily] 1 tab PO DAILY 05/14/16 [History] Levofloxacin [Levaquin] 500 mg PO DAILY #7 tablet 03/03/19 [Rx] Referrals: Vanessa Lopez PA [ED Midlevel Provider] - (Follow up with Sera in one week) - Discharge Summary/Plan Comment DC Time >30 min.: No - General Info Date of Service: 03/03/19 Admission Dx/Problem (Free Text: Pneumonia, RLL Functional Status: Reports: Pain Controlled, Tolerating Diet, Ambulating - Review of Systems General: Reports: Weakness, Fatigue, Malaise. Denies: Fever HEENT: Reports: Sinus Congestion. Denies: Sore Throat Pulmonary: Reports: Cough. Denies: Shortness of Breath, Sputum Cardiovascular: Denies: Chest Pain, Edema, Lightheadedness Gastrointestinal: Denies: Abdominal Pain, Nausea, Vomiting Genitourinary: Reports: No Symptoms Musculoskeletal: Reports: No Symptoms Skin: Reports: No Symptoms Neurological: Reports: Pre-Existing Deficit, Weakness - Patient Data Vitals - Most Recent: Last Vital Signs Temp 97.7 F 03/03/19 08:00 Pulse 86 03/03/19 08:00 Resp 16 03/03/19 08:00 BP 136/62 03/03/19 08:00 Pulse Ox 93 L 03/03/19 08:00 Weight - Most Recent: 182 lb 1.6 oz Lab Results - Last 24 hrs: Laboratory Results - last 24 hr 03/03/19 03/03/19 03/03/19 Range/Units 07:00 07:00 07:47 WBC 8.0 (5.0-10.0) 10^3/uL RBC 3.38 L (4.00-5.50) 10^6/uL Hgb 10.9 L (12.0-16.0) g/dL Hct 32.1 L (37.0-47.0) % MCV 95.0 H (82.0-94.0) fL MCH 32.2 H (27.0-32.0) pg MCHC 34.0 (33.0-38.0) g/dL RDW Coeff of Andres 13.7 (11.0-15.0) % Plt Count 300 (150-400) 10^3/uL Neut % (Auto) 54.9 (35-85) % Lymph % (Auto) 30.7 (10-55) % [place] % (Auto) 9.9 (0-16) % Eos % (Auto) 4.2 (0-5) % Baso % (Auto) 0.3 (0-3) % Neut # (Auto) 4.37 (1.80-7.00) 10^3/uL Lymph # (Auto) 2.44 (1.00-4.80) 10^3/uL [place] # (Auto) 0.79 (0.00-0.80) 10^3/uL Eos # (Auto) 0.33 (0.00-0.45) 10^3/uL Baso # (Auto) 0.02 10^3/uL Sodium 140 (136-145) mEq/L Potassium 4.2 (3.5-5.0) mEq/L Chloride 103 (98-106) mEq/L Carbon Dioxide 25 (21-32) mmol/L BUN 18 (7-18) mg/dL Creatinine 0.9 (0.6-1.0) mg/dL Est Cr Clr Drug Dosing 36.43 mL/min Estimated GFR (MDRD) 59 L (>=60) mL/min Glucose 79 (75-99) mg/dL POC Glucose 86 (75-105) mg/dl Calcium 9.3 (8.4-10.1) mg/dL C-Reactive Protein 5.2 H (0.2-0.8) mg/dL BRIAN Results - Last 24 hrs: Microbiology 01/04/20 23:09 Gram Stain - Final Sputum - Expectorated Sputum Culture - Preliminary YEAST 03/01/19 11:50 Aerobic Blood Culture - Preliminary Blood NO GROWTH AFTER 1 DAY Anaerobic Blood Culture - Final Med Orders - Current: Current Medications Discontinued Medications Acetaminophen (Tylenol) 650 mg PO Q4H PRN PRN Reason: Pain (Mild 1-3)/fever Albuterol/Ipratropium (Duoneb 3.0-0.5 Mg/3 Ml) 3 ml NEB Q4H PRN PRN Reason: Shortness Of Breath/wheezing Last Admin: 03/01/19 15:45 Dose: 3 ml Albuterol/Ipratropium (Duoneb 3.0-0.5 Mg/3 Ml) 3 ml NEB BIDRT [facility] Last Admin: 03/03/19 07:49 Dose: 3 ml Atorvastatin Calcium (Lipitor) 40 mg PO DAILY [facility] Last Admin: 03/03/19 07:49 Dose: 40 mg Calcium/Magnesium/Zinc (Calcium & Magnesium Plus Zinc) 1 tab PO DAILY [facility] Last Admin: 03/03/19 07:48 Dose: 1 tab Carbidopa/Levodopa (Sinemet 25-100 Mg) 1.5 tab PO TID [facility] Carbidopa/Levodopa (Sinemet 25-100 Mg) 1.5 tab PO BID [facility] Last Admin: 03/03/19 07:49 Dose: 1.5 tab Cholecalciferol (Vitamin D3) 50 mcg PO DAILY [facility] Last Admin: 03/03/19 07:50 Dose: 50 mcg Clopidogrel Bisulfate (Plavix) 75 mg PO DAILY [facility] Last Admin: 03/03/19 07:51 Dose: 75 mg Enoxaparin Sodium (Lovenox) 40 mg SUBCUT Q24H [facility] Last Admin: 03/02/19 20:02 Dose: 40 mg Glipizide (Glucotrol Xl) 10 mg PO BID [facility] Last Admin: 03/03/19 07:51 Dose: 10 mg Hydrochlorothiazide (Hydrochlorothiazide) 12.5 mg PO DAILY [facility] Last Admin: 03/03/19 07:51 Dose: 12.5 mg Levofloxacin/Dextrose 750 mg/ (Premix) 150 mls @ 100 mls/hr IV Q24H [facility] Last Admin: 03/01/19 15:33 Dose: 100 mls/hr Sodium Chloride (Normal Saline) 500 mls @ 500 mls/hr IV BOLUS [facility] Stop: 03/01/19 15:44 Last Admin: 03/01/19 17:12 Dose: 500 mls/hr Levofloxacin/Dextrose 750 mg/ (Premix) 150 mls @ 100 mls/hr IV Q48H [facility] Ibuprofen (Motrin) 600 mg PO Q6H PRN PRN Reason: Pain (mild 1-3) Latanoprost (Xalatan 0.005% Ophth Soln) 0 ml EYEBOTH BEDTIME [facility] Last Admin: 03/02/19 20:17 Dose: 1 drop Losartan Potassium (Cozaar) 100 mg PO DAILY [facility] Last Admin: 03/03/19 07:51 Dose: 100 mg Metformin HCl (Glucophage) 1,000 mg PO BID [facility] Last Admin: 03/03/19 07:48 Dose: 1,000 mg Morphine Sulfate (Morphine) 2 mg IVPUSH Q2H PRN PRN Reason: Pain (severe 7-10) Multivitamins/Minerals/Vitamin C (Tab-A-Stephanie) 1 tab PO DAILY [facility] Last Admin: 03/03/19 07:52 Dose: 1 tab Non-Formulary Medication (Aspirin/Calcium Carbonate/Mag [Aspirin Buffered 325 Mg Tab]) 325 mg PO DAILY [facility] Last Admin: 03/02/19 11:12 Dose: Not Given Non-Formulary Medication (Hydrochlorothiazide [Hydrochlorothiazide]) 12.5 mg PO DAILY [facility] Non-Formulary Medication (Loratadine [Claritin]) 10 mg PO DAILY [facility] Last Admin: 03/02/19 11:12 Dose: Not Given Non-Formulary Medication (Lutein [Lutein]) 20 mg PO DAILY [facility] Last Admin: 03/02/19 11:12 Dose: Not Given Ondansetron HCl (Zofran) 4 mg IV Q6H PRN PRN Reason: Nausea/Vomiting Polysaccharide Iron Complex (Ferrex 150) 150 mg PO DAILY [facility] Last Admin: 03/03/19 07:49 Dose: 150 mg Timolol Maleate (Timoptic 0.5% Ophth Soln) 0 ml EYELF DAILY [facility] Last Admin: 03/03/19 07:53 Dose: 1 drop - Exam General: Reports: Alert, Oriented HEENT: Reports: Mucous Membr. Moist/[place] Neck: Reports: Supple Lungs: Reports: Rhonchi Cardiovascular: Reports: Regular Rate, Regular Rhythm GI/Abdominal Exam: Normal Bowel Sounds, Soft, Non-Tender Extremities: Normal Inspection, Pedal Edema Skin: Reports: Warm, Dry Neurological: Reports: No New Focal Deficit
[2019-03-03] MEDS ORDERED: Levofloxacin/Dextrose 5%-Water 750 MG in Premix Bag 1 BAG IV SCH (14:00)
== END 2019-03-03 10:47 | disposition home or self-care (01) | DRG 195 ==
LOC: CC.FCMC 11:45 → UNDOADMIN 13:10 → CC.MS 13:10
PROVIDERS: ADMIT Nurse Practitioner; ATTEND Family Medicine
DX: J18.9 Pneumonia, unspecified organism (principal); G20 Parkinson's disease; Z79.899 Other long term (current) drug therapy; Z79.84 Long term (current) use of oral hypoglycemic drugs
CPT/HCPCS: 36415; 71046; 80048; 80053; 82962; 83605; 83880; 85025; 86140; 87040; 87070; 87205; 94640; A9270-GY; J1650; J1956; J7030; J7620-GY

== ENCOUNTER 2019-12-15 14:04 | Inpatient (IN) | payer MEDICARE, BC ==
[2019-12-15] MEDS ORDERED: Polyethylene Glycol 3350 Powder 17 GM Packet PO PRN (16:55)
[2019-12-15] MEDS ORDERED: Glucagon,Human Recombinant 1 MG Vial IM PRN (16:55)
[2019-12-15] MEDS ORDERED: Acetaminophen/HYDROcodone 325-5 MG Tab PO PRN (16:55)
[2019-12-15] MEDS ORDERED: 50% Dextrose in Water 50 ML Syringe IV PRN (16:55)
[2019-12-15] MEDS ORDERED: Docusate Sodium 100 MG Cap PO PRN (16:55)
[2019-12-15] MEDS ORDERED: Acetaminophen 325 MG Tab PO PRN (16:55)
[2019-12-15] MEDS ORDERED: Sodium Chloride 0.9% 10 ML Syringe FLUSH PRN (16:55)
[2019-12-15] MEDS ORDERED: Lactated Ringers 1,000 ML IV SCH (16:55)
[2019-12-15] MEDS: Insulin Lispro 100 Units/ML 3 ML Vial SUBCUT SCH ×2 (18:12→20:11)
[2019-12-15] MEDS: Carbidopa/Levodopa 25-100 MG Tab PO SCH (20:04)
[2019-12-15] MEDS: glipiZIDE 5 MG Tab.ER PO SCH (20:05)
[2019-12-15] MEDS: atorvaSTATin 20 MG Tab PO SCH (20:09)
[2019-12-15] MEDS: metFORMIN 500 MG Tab PO SCH (20:10)
[2019-12-16] MEDS ORDERED: Timolol Maleate 0.5% Ophth Soln 5 ML Bottle EYELF SCH (08:00)
[2019-12-16] MEDS: Insulin Lispro 100 Units/ML 3 ML Vial SUBCUT SCH ×4 (08:19→20:10)
[2019-12-16] MEDS: Acetaminophen 500 MG Tab PO PRN ×2 (08:44→15:16)
[2019-12-16] MEDS: Losartan 100 MG Tab PO SCH (08:45)
[2019-12-16] MEDS: glipiZIDE 5 MG Tab.ER PO SCH ×2 (08:45→20:07)
[2019-12-16] MEDS: Cholecalciferol (Vitamin D3) 25 MCG Tab PO SCH (08:45)
[2019-12-16] MEDS: Multivitamin Tab PO SCH (08:45)
[2019-12-16] MEDS: Hydrochlorothiazide 12.5 MG Cap PO SCH (08:45)
[2019-12-16] MEDS: Carbidopa/Levodopa 25-100 MG Tab PO SCH ×2 (08:45→20:06)
[2019-12-16] MEDS: metFORMIN 500 MG Tab PO SCH ×2 (08:45→20:06)
--- NOTE | 2019-12-16 09:33 | EDM.PDOC ---
ED HPI GENERAL MEDICAL PROBLEM - General Chief Complaint: General Stated Complaint: L) hip pain Time Seen by Provider: 12/15/19 14:20 Source of Information: Reports: Patient, Family History Limitations: Reports: No Limitations - History of Present Illness INITIAL COMMENTS - FREE TEXT/NARRATIVE: Alida is a pleasant 89 yo female who presents to the ED via private vehicle with c/o left hip pain. She reports she fell about 2 hrs prior to arrival while in the bathroom and landed on her left hip. She reports she was unable to get up, but she has a caregiver who comes into her home and found her. Caregiver arrived shortly after she fell. She reports she has a Life Alert but didn't remember to push it. She denies any other injury. Did not hit her head or have LOC. She denies any dizziness, CP, or SOB prior to fall. She reports with her Parkinson's her left leg is more weak and it got hung up on something in the bathroom, causing the fall. She denies any other symptoms. Reports she has otherwise been feeling well. She is unable to bear weight on her LLE. Onset: Today, Sudden Onset Date: 12/15/19 Onset Time: 09:30 Duration: Constant Location: Reports: Lower Extremity, Left Quality: Reports: Sharp Severity: Moderate Worsens with: Reports: Movement (weight bearing) Context: Reports: Trauma Associated Symptoms: Reports: No Other Symptoms, Weakness (chronic d/t parkinsons). Denies: Confusion, Chest Pain, Cough, cough w sputum, Diaphoresis, Fever/Chills, Headaches, Loss of Appetite, Malaise, Nausea/Vomiting, Rash, Se izure, Shortness of Breath, Syncope Left Upper Hip Pain Score (Numeric/FACES): 3 left hip/back Pain Score (Numeric/FACES): 4 - Related Data Allergies Allergy/AdvReac Type Severity Reaction Status Date / Time No Known Allergies Allergy Verified 12/15/19 14:05 Home Meds: Home Meds Cholecalciferol (Vitamin D3) [Vitamin D3] 2,000 unit PO DAILY 06/18/14 [History] Lutein 20 mg PO DAILY 06/18/14 [History] Valsartan/Hydrochlorothiazide [Valsartan-Hctz 160-12.5 mg Tab] 1 each PO DAILY 06/18/14 [History] atorvaSTATin Calcium [Atorvastatin Calcium] 40 mg PO BEDTIME 06/18/14 [History] glipiZIDE [Glipizide ER] 10 mg PO BID 06/18/14 [History] metFORMIN [Glucophage] 1,000 mg PO BID 06/18/14 [History] timoloL maleate [Timoptic 0.5% Ocudose] 1 drop EYELF DAILY 06/18/14 [History] Carbidopa/Levodopa [Carbidopa-Levodopa 25-100] 1.5 tab PO BID 06/19/14 [History] Clopidogrel [Plavix] 75 mg PO DAILY #30 tablet 06/19/14 [Rx] Calcium Carb/D3/Magnesium/Zinc [Raghu Mag Zinc-D Tablet] 1 tab PO DAILY 05/14/16 [History] Iron 1 tab PO DAILY 05/14/16 [History] Multivitamin [Multi-Vitamin Daily] 1 tab PO DAILY 05/14/16 [History] Past Medical History HEENT History: Reports: Allergic Rhinitis, Cataract, Impaired Vision, Macular Degeneration Cardiovascular History: Reports: Afib, High Cholesterol, Hypertension Genitourinary History: Reports: Other (See Below) Other Genitourinary History: nocturia MANAGER MEDIA RELATIONS History: Reports: Musculoskeletal History: Reports: Arthritis, Osteoporosis, Other (See Below) Other Musculoskeletal History: arthralgia Neurological History: Reports: CVA, Parkinson's, TIA Endocrine/Metabolic History: Reports: Diabetes, Type II, Vitamin D Deficiency Hematologic History: Reports: Other (See Below) Other Hematologic History: pernicious anemia Oncologic (Cancer) History: Reports: Breast - Past Surgical History HEENT Surgical History: Reports: Cataract Surgery Cardiovascular Surgical History: Reports: None Female Surgical History: Reports: Other (See Below) Endocrine Surgical History: Reports: None Neurological Surgical History: Reports: None Musculoskeletal Surgical History: Reports: None Social & Family History - Family History Family Medical History: Noncontributory - Tobacco Use Tobacco Use Status *Q: Never Tobacco User Second Hand Smoke Exposure: No - Recreational Drug Use Recreational Drug Use: No ED ROS GENERAL - Review of Systems Review Of Systems: Comprehensive ROS is negative, except as noted in HPI. ED EXAM, GENERAL - Physical Exam Exam: See Below Exam Limited By: No Limitations General Appearance: Alert, WD/WN, No Apparent Distress Eye Exam: Bilateral Eye: EOMI, Normal Fundi, Normal Inspection, PERRL Nose: Normal Inspection, Normal Mucosa, No Blood Throat/Mouth: Normal Inspection, Normal Lips, Normal Teeth, Normal Gums, Normal Oropharynx, Normal Voice, No Airway Compromise Head: Atraumatic, Normocephalic Neck: Normal Inspection, Supple, Non-Tender, Full Range of Motion Respiratory/Chest: No Respiratory Distress, Lungs Clear, Normal Breath Sounds, No Accessory Muscle Use, Chest Non-Tender Cardiovascular: Normal Peripheral Pulses, Regular Rate, Rhythm, No Edema, No Gallop, No JVD, No Murmur, No Rub Peripheral Pulses: 2+: Posterior Tibial (L), Dorsalis Pedis (L) GI/Abdominal: Normal Bowel Sounds, Soft, Non-Tender, No Organomegaly, No Distention, No Abnormal Bruit, No Mass, Pelvis Stable Back Exam: Normal Inspection. No: Paraspinal Tenderness, Vertebral Tenderness Extremities: Non-Tender, Normal Capillary Refill, Leg Pain (left) Neurological: Alert, Oriented, CN II-XII Intact, Normal Cognition, Normal Reflexes, No Motor/Sensory Deficits, Other (tremor BUE, L>R, unable to bear weight LLE) Psychiatric: Normal Affect, Normal Mood Skin Exam: Warm, Dry, Intact, Normal Color, No Rash, Ecchymosis (left hand) Course - Vital Signs Last Recorded V/S: Last Vital Signs Temp 99 F 12/16/19 08:00 Pulse 81 12/16/19 08:00 Resp 16 12/16/19 08:00 BP 142/53 H 12/16/19 08:45 Pulse Ox 93 L 12/16/19 08:00 - Orders/Labs/Meds Orders: Active Orders 24 hr Category Date Time Status Hip Min 2V or 3V w Pelvis Lt [CR] Stat Exams 12/15/19 14:26 Taken Medication Orders Acetaminophen (Tylenol Extra Strength) 1,000 mg PO Q6H PRN PRN Reason: Pain (Mild 1-3)/fever Last Admin: 12/16/19 08:44 Dose: 1,000 mg Documented by: GERMAN Hydrocodone Bitart/Acetaminophen (Schurz 325-5 Mg) 1 tab PO Q4H PRN PRN Reason: Pain (moderate 4-6) Atorvastatin Calcium (Lipitor) 40 mg PO BEDTIME [facility] Last Admin: 12/15/19 20:09 Dose: 40 mg Documented by: YANETH Calcium Carbonate (Calcium Carbonate/Vitamin D 1250 Mg-200 Unit) 1 tab PO [facility]GOOD [facility] Carbidopa/Levodopa (Sinemet 25-100 Mg) 1.5 tab PO BID [facility] Last Admin: 12/16/19 08:45 Dose: 1.5 tab Documented by: Admin: 12/15/19 20:04 Dose: 1.5 tab Documented by: YANETH Cholecalciferol (Vitamin D3) 50 mcg PO DAILY [facility] Last Admin: 12/16/19 08:45 Dose: 50 mcg Documented by: GERMAN Dextrose/Water (Dextrose 50% In Water) 50 ml IV ASDIRECTED PRN PRN Reason: Hypoglycemia Docusate Sodium (Colace) 100 mg PO BID PRN PRN Reason: Constipation Glipizide (Glucotrol Xl) 10 mg PO BID [facility] Last Admin: 12/16/19 08:45 Dose: 10 mg Documented by: Admin: 12/15/19 20:05 Dose: 10 mg Documented by: YANETH Glucagon (Glucagen) 1 mg IM ASDIRECTED PRN PRN Reason: Hypoglycemia Hydrochlorothiazide (Hydrochlorothiazide) 12.5 mg PO DAILY [facility] Last Admin: 12/16/19 08:45 Dose: 12.5 mg Documented by: GERMAN Insulin Human Lispro (Humalog) [facility]; Protocol Last Admin: 12/16/19 12:29 Dose: Not Given Documented by: Admin: 12/16/19 08:19 Dose: Not Given Documented by: Admin: 12/15/19 20:11 Dose: 6 units Documented by: Admin: 12/15/19 18:12 Dose: 4 units Documented by: JULISSA Losartan Potassium (Cozaar) 100 mg PO DAILY [facility] Last Admin: 12/16/19 08:45 Dose: 100 mg Documented by: GERMAN Metformin HCl (Glucophage) 1,000 mg PO BID [facility] Last Admin: 12/16/19 08:45 Dose: 1,000 mg Documented by: Admin: 12/15/19 20:10 Dose: 1,000 mg Documented by: YANETH Multivitamins/Minerals/Vitamin C (Tab-A-Stephanie) 1 tab PO DAILY [facility] Last Admin: 12/16/19 08:45 Dose: 1 tab Documented by: GERMAN Polyethylene Glycol (Miralax) 17 gm PO DAILY PRN PRN Reason: Constipation Sodium Chloride (Saline Flush) 10 ml FLUSH ASDIRECTED PRN PRN Reason: Keep Vein Open Timolol Maleate (Timoptic 0.5% Ophth Soln) 0 ml EYELF DAILY [facility] Last Admin: 12/16/19 10:43 Dose: Not Given Documented by: GERMAN Labs: Laboratory Tests 12/15/19 12/15/19 12/15/19 Range/Units 15:24 15:30 15:30 WBC 16.2 H (5.0-10.0) 10^3/uL RBC 3.33 L (4.00-5.50) 10^6/uL Hgb 10.4 L (12.0-16.0) g/dL Hct 32.0 L (37.0-47.0) % MCV 96.1 H (82.0-94.0) fL MCH 31.2 (27.0-32.0) pg MCHC 32.5 L (33.0-38.0) g/dL RDW Coeff of Andres 13.9 (11.0-15.0) % Plt Count 255 (150-400) 10^3/uL Neut % (Auto) 87.1 H (35-85) % Lymph % (Auto) 6.1 L (10-55) % [place] % (Auto) 6.6 (0-16) % Eos % (Auto) 0.1 (0-5) % Baso % (Auto) 0.1 (0-3) % Neut # (Auto) 14.07 H (1.80-7.00) 10^3/uL Lymph # (Auto) 0.98 L (1.00-4.80) 10^3/uL [place] # (Auto) 1.07 H (0.00-0.80) 10^3/uL Eos # (Auto) 0.02 (0.00-0.45) 10^3/uL Baso # (Auto) 0.01 10^3/uL Sodium 139 (136-145) mEq/L Potassium 4.4 (3.5-5.0) mEq/L Chloride 101 (98-106) mEq/L Carbon Dioxide 26 (21-32) mmol/L BUN 30 H (7-18) mg/dL Creatinine 1.1 H (0.6-1.0) mg/dL Est Cr Clr Drug Dosing 29.24 mL/min Estimated GFR (MDRD) 47 L (>=60) mL/min Glucose 224 H D (75-99) mg/dL Calcium 9.7 (8.4-10.1) mg/dL Magnesium 1.9 (1.8-2.4) mg/dL Total Bilirubin 0.7 (0.0-1.0) mg/dL AST 20 (15-37) U/L ALT 24 (12-78) U/L Alkaline Phosphatase 94 (46-116) U/L Troponin I 0.038 (0.00-0.06) ng/mL Total Protein 7.3 (6.4-8.2) g/dL Albumin 3.7 (3.4-5.0) g/dL SARS CoV-2 RNA Rapid CHERIE Negative (NEGATIVE) Meds: Medications Generic Name Dose Route Start Last Admin Trade Name Freq PRN Reason Stop Dose Admin Acetaminophen 1,000 mg 12/16/19 08:39 12/16/19 08:44 Tylenol Extra Strength PO 1,000 mg Q6H PRN Administration Pain (Mild 1-3)/fever Hydrocodone Bitart/Acetaminophen 1 tab 12/15/19 16:55 Schurz 325-5 Mg PO Q4H PRN Pain (moderate 4-6) Atorvastatin Calcium 40 mg 12/15/19 20:00 12/15/19 20:09 Lipitor PO 40 mg BEDTIME HANNA Administration Calcium Carbonate 1 tab 12/16/19 17:30 Calcium Carbonate/Vitamin D 1250 Mg-200 Unit PO BIDMEALS HANNA Carbidopa/Levodopa 1.5 tab 12/15/19 20:00 12/16/19 08:45 Sinemet 25-100 Mg PO 1.5 tab BID HANNA Administration Cholecalciferol 50 mcg 12/16/19 08:00 12/16/19 08:45 Vitamin D3 PO 50 mcg DAILY HANNA Administration Dextrose/Water 50 ml 12/15/19 16:55 Dextrose 50% In Water IV ASDIRECTED PRN Hypoglycemia Docusate Sodium 100 mg 12/15/19 16:55 Colace PO BID PRN Constipation Glipizide 10 mg 12/15/19 20:00 12/16/19 08:45 Glucotrol Xl PO 10 mg BID HANNA Administration Glucagon 1 mg 12/15/19 16:55 Glucagen IM ASDIRECTED PRN Hypoglycemia Hydrochlorothiazide 12.5 mg 12/16/19 08:00 12/16/19 08:45 Hydrochlorothiazide PO 12.5 mg DAILY [facility]ANNA Administration Insulin Human Lispro 0 unit 12/15/19 17:30 12/16/19 12:29 Humalog SUBCUT Not Given WITHMEALSANDBED [facility] Protocol Losartan Potassium 100 mg 12/16/19 08:00 12/16/19 08:45 Cozaar PO 100 mg DAILY [facility] Administration Metformin HCl 1,000 mg 12/15/19 20:00 12/16/19 08:45 Glucophage PO 1,000 mg BID HANNA Administration Multivitamins/Minerals/Vitamin C 1 tab 12/16/19 08:00 12/16/19 08:45 Tab-A-Stephanie PO 1 tab DAILY [facility] Administration Polyethylene Glycol 17 gm 12/15/19 16:55 Miralax PO DAILY PRN Constipation Sodium Chloride 10 ml 12/15/19 16:55 Saline Flush FLUSH ASDIRECTED PRN Keep Vein Open Timolol Maleate 0 ml 12/16/19 08:00 12/16/19 10:43 Timoptic 0.5% Ophth Soln EYELF Not Given DAILY [facility] Discontinued Medications Generic Name Dose Route Start Last Admin Trade Name Freq PRN Reason Stop Dose Admin Acetaminophen 1,000 mg 12/15/19 16:55 Tylenol PO Q6H PRN Pain (Mild 1-3)/fever Lactated Ringer's 1,000 mls @ 75 mls/hr 12/15/19 16:55 12/15/19 17:51 Ringers, Lactated IV 12/16/19 06:14 75 mls/hr ASDIRECTED HANNA Administration Non-Formulary Medication 1 tab 12/16/19 08:00 12/16/19 12:33 Calcium Carb/D3/Magnesium/Zinc [Raghu Mag Zinc-D Tablet] PO Not Given DAILY [facility] Non-Formulary Medication 1 each 12/16/19 08:00 Valsartan/Hydrochlorothiazide [Valsartan-Hctz 160-12.5 Mg Tab] PO DAILY [facility] - Re-Assessments/Exams Free Text/Narrative Re-Assessment/Exam: Xray reveals fracture of left inferior pubic ramus with mild inferior displacement of the lateral fragment. Discussed these findings with patient and patient's son. Departure - Departure Time of Disposition: 16:00 Disposition: Admitted As Inpatient 67 Condition: Fair Clinical Impression: Parkinson disease Pelvic ring fracture Qualifiers: Encounter type: initial encounter Fracture type: closed Qualified Code(s): S32.810A - Multiple fractures of pelvis with stable disruption of pelvic ring, initial encounter for closed fracture Type 2 diabetes mellitus Qualifiers: Diabetes mellitus termite treater insulin use: without termite treater use Diabetes mellitus complication status: without complication Qualified Code(s): E11.9 - Type 2 diabetes mellitus without complications - Discharge Information *PRESCRIPTION DRUG MONITORING PROGRAM REVIEWED*: Not Applicable *COPY OF PRESCRIPTION DRUG MONITORING REPORT IN PATIENT JESSICA: Not Applicable Sepsis Event Note (ED) - Evaluation Sepsis Screening Result: No Definite Risk - Problem List & Annotations (1) Pelvic ring fracture SNOMED Code(s): 42640245 Code(s): S32.810A - MULTIPLE FX OF PELVIS W STABLE DISRUPT OF PELVIC RING, INIT Status: Acute Current Visit: Yes Qualifiers: Encounter type: initial encounter Fracture type: closed Qualified Code(s): S32.810A - Multiple fractures of pelvis with stable disruption of pelvic ring, initial encounter for closed fracture (2) Parkinson disease SNOMED Code(s): 26756849 Code(s): G20 - PARKINSON'S DISEASE Status: Acute Current Visit: Yes (3) Type 2 diabetes mellitus SNOMED Code(s): 88498110 Code(s): E11.9 - TYPE 2 DIABETES MELLITUS WITHOUT COMPLICATIONS Status: Acute Current Visit: Yes Qualifiers: Diabetes mellitus termite treater insulin use: without group home use Diabetes mellitus complication status: without complication Qualified Code(s): E11.9 - Type 2 diabetes mellitus without complications - My Orders Last 24 Hours: My Active Orders 12/15/19 14:26 Hip Min 2V or 3V w Pelvis Lt [CR] Stat - Assessment/Plan Last 24 Hours: My Active Orders 12/15/19 14:26 Hip Min 2V or 3V w Pelvis Lt [CR] Stat Assessment:: Pelvic Ring Fracture Parkinson's Disease Type 2 DM Plan: Admit to acute. Patient will be bedrest/nonweightbearing overnight. WBC elevated to 16.2. Hgb 10.4, stable at baseline. Recheck labs in am. SCDs/teds for DVT prophylaxis until repeat labs. If stable, patient will begin PT as tolerated. Will keep bedrest overnight. See admit orders. Consult PT and case management. Patient will likely need extended PT given her underlying Parkinsons and generalized weakness with new pelvic fracture. Consult case management to assist with discharge planning. She currently does have healthcare worker who comes into her home.
--- NOTE | 2019-12-16 09:48 | PCM.PN ---
- General Info Date of Service: 12/16/19 Admission Dx/Problem (Free Text): Pelvic Fracture Parkinson's Disease Type 2 DM Subjective Update: Alida is a very pleasant 89 yo female who was admitted to the hospital from the ED yesterday after a fall in which she sustained a left pelvic fracture. She reports she had an uneventful night. She was able to sleep well. She denies any pain at rest. Does have some minimal pain with turns. Did take some Tylenol this morning, but otherwise has not required any pain medications. Did have a bowel movement this morning. Has been incontinent of urine. She denies any other symptoms. Functional Status: Reports: Pain Controlled, Tolerating Diet, Urinating. Denies: Ambulating - Review of Systems General: Reports: Weakness. Denies: Fever, Fatigue, Malaise, Chills HEENT: Reports: No Symptoms Pulmonary: Reports: No Symptoms Cardiovascular: Reports: No Symptoms Gastrointestinal: Reports: No Symptoms Genitourinary: Reports: No Symptoms Musculoskeletal: Reports: Leg Pain (left) Skin: Reports: Bruising (left hand) Neurological: Reports: Tremors (BUE), Weakness. Denies: Confusion, Dizziness, Headache, Numbness Psychiatric: Reports: No Symptoms - Patient Data Vitals - Most Recent: Last Vital Signs Temp 99 F 12/16/19 08:00 Pulse 81 12/16/19 08:00 Resp 16 12/16/19 08:00 BP 142/53 H 12/16/19 08:45 Pulse Ox 93 L 12/16/19 08:00 Weight - Most Recent: 170 lb Lab Results Last 24 Hours: Laboratory Results - last 24 hr 12/15/19 12/15/19 12/15/19 Range/Units 15:24 15:30 15:30 WBC 16.2 H (5.0-10.0) 10^3/uL RBC 3.33 L (4.00-5.50) 10^6/uL Hgb 10.4 L (12.0-16.0) g/dL Hct 32.0 L (37.0-47.0) % MCV 96.1 H (82.0-94.0) fL MCH 31.2 (27.0-32.0) pg MCHC 32.5 L (33.0-38.0) g/dL RDW Coeff of Andres 13.9 (11.0-15.0) % Plt Count 255 (150-400) 10^3/uL Neut % (Auto) 87.1 H (35-85) % Lymph % (Auto) 6.1 L (10-55) % [place] % (Auto) 6.6 (0-16) % Eos % (Auto) 0.1 (0-5) % Baso % (Auto) 0.1 (0-3) % Neut # (Auto) 14.07 H (1.80-7.00) 10^3/uL Lymph # (Auto) 0.98 L (1.00-4.80) 10^3/uL [place] # (Auto) 1.07 H (0.00-0.80) 10^3/uL Eos # (Auto) 0.02 (0.00-0.45) 10^3/uL Baso # (Auto) 0.01 10^3/uL Sodium 139 (136-145) mEq/L Potassium 4.4 (3.5-5.0) mEq/L Chloride 101 (98-106) mEq/L Carbon Dioxide 26 (21-32) mmol/L BUN 30 H (7-18) mg/dL Creatinine 1.1 H (0.6-1.0) mg/dL Est Cr Clr Drug Dosing 29.24 mL/min Estimated GFR (MDRD) 47 L (>=60) mL/min Glucose 224 H D (75-99) mg/dL POC Glucose (75-105) mg/dl Calcium 9.7 (8.4-10.1) mg/dL Magnesium 1.9 (1.8-2.4) mg/dL Total Bilirubin 0.7 (0.0-1.0) mg/dL AST 20 (15-37) U/L ALT 24 (12-78) U/L Alkaline Phosphatase 94 (46-116) U/L Troponin I 0.038 (0.00-0.06) ng/mL Total Protein 7.3 (6.4-8.2) g/dL Albumin 3.7 (3.4-5.0) g/dL SARS CoV-2 RNA Rapid CHERIE Negative (NEGATIVE) 12/15/19 12/16/19 12/16/19 Range/Units 17:51 07:15 07:15 WBC 12.7 H (5.0-10.0) 10^3/uL RBC 2.87 L (4.00-5.50) 10^6/uL Hgb 9.0 L (12.0-16.0) g/dL Hct 27.3 L (37.0-47.0) % MCV 95.1 H (82.0-94.0) fL MCH 31.4 (27.0-32.0) pg MCHC 33.0 (33.0-38.0) g/dL RDW Coeff of Andres 14.0 (11.0-15.0) % Plt Count 219 (150-400) 10^3/uL Neut % (Auto) 80.7 (35-85) % Lymph % (Auto) 10.2 (10-55) % [place] % (Auto) 8.0 (0-16) % Eos % (Auto) 0.9 (0-5) % Baso % (Auto) 0.2 (0-3) % Neut # (Auto) 10.26 H (1.80-7.00) 10^3/uL Lymph # (Auto) 1.30 (1.00-4.80) 10^3/uL [place] # (Auto) 1.02 H (0.00-0.80) 10^3/uL Eos # (Auto) 0.12 (0.00-0.45) 10^3/uL Baso # (Auto) 0.02 10^3/uL Sodium 139 (136-145) mEq/L Potassium 3.9 (3.5-5.0) mEq/L Chloride 103 (98-106) mEq/L Carbon Dioxide 26 (21-32) mmol/L BUN 26 H (7-18) mg/dL Creatinine 0.9 (0.6-1.0) mg/dL Est Cr Clr Drug Dosing 35.74 mL/min Estimated GFR (MDRD) 59 L (>=60) mL/min Glucose 114 H D (75-99) mg/dL POC Glucose 210 H (75-105) mg/dl Calcium 9.1 (8.4-10.1) mg/dL Magnesium (1.8-2.4) mg/dL Total Bilirubin (0.0-1.0) mg/dL AST (15-37) U/L ALT (12-78) U/L Alkaline Phosphatase (46-116) U/L Troponin I (0.00-0.06) ng/mL Total Protein (6.4-8.2) g/dL Albumin (3.4-5.0) g/dL SARS CoV-2 RNA Rapid CHERIE (NEGATIVE) Med Orders - Current: Current Medications Acetaminophen (Tylenol Extra Strength) 1,000 mg PO Q6H PRN PRN Reason: Pain (Mild 1-3)/fever Last Admin: 12/16/19 08:44 Dose: 1,000 mg Documented by: Hydrocodone Bitart/Acetaminophen ([place] 325-5 Mg) 1 tab PO Q4H PRN PRN Reason: Pain (moderate 4-6) Atorvastatin Calcium (Lipitor) 40 mg PO BEDTIME [facility] Last Admin: 12/15/19 20:09 Dose: 40 mg Documented by: Carbidopa/Levodopa (Sinemet 25-100 Mg) 1.5 tab PO BID [facility] Last Admin: 12/16/19 08:45 Dose: 1.5 tab Documented by: Cholecalciferol (Vitamin D3) 50 mcg PO DAILY [facility] Last Admin: 12/16/19 08:45 Dose: 50 mcg Documented by: Dextrose/Water (Dextrose 50% In Water) 50 ml IV ASDIRECTED PRN PRN Reason: Hypoglycemia Docusate Sodium (Colace) 100 mg PO BID PRN PRN Reason: Constipation Glipizide (Glucotrol Xl) 10 mg PO BID [facility] Last Admin: 12/16/19 08:45 Dose: 10 mg Documented by: Glucagon (Glucagen) 1 mg IM ASDIRECTED PRN PRN Reason: Hypoglycemia Hydrochlorothiazide (Hydrochlorothiazide) 12.5 mg PO DAILY [facility] Last Admin: 12/16/19 08:45 Dose: 12.5 mg Documented by: Insulin Human Lispro (Humalog) 0 unit SUBCUT WITHMEALSANDBED [facility]; Protocol Last Admin: 12/16/19 08:19 Dose: Not Given Documented by: Losartan Potassium (Cozaar) 100 mg PO DAILY [facility] Last Admin: 12/16/19 08:45 Dose: 100 mg Documented by: Metformin HCl (Glucophage) 1,000 mg PO BID [facility] Last Admin: 12/16/19 08:45 Dose: 1,000 mg Documented by: Multivitamins/Minerals/Vitamin C (Tab-A-Stephanie) 1 tab PO DAILY [facility] Last Admin: 12/16/19 08:45 Dose: 1 tab Documented by: Non-Formulary Medication (Calcium Carb/D3/Magnesium/Zinc [Raghu Mag Zinc-D Tablet]) 1 tab PO DAILY [facility] Polyethylene Glycol (Miralax) 17 gm PO DAILY PRN PRN Reason: Constipation Sodium Chloride (Saline Flush) 10 ml FLUSH ASDIRECTED PRN PRN Reason: Keep Vein Open Timolol Maleate (Timoptic 0.5% Ophth Soln) 0 ml EYELF DAILY [facility] Discontinued Medications Acetaminophen (Tylenol) 1,000 mg PO Q6H PRN PRN Reason: Pain (Mild 1-3)/fever Lactated Ringer's (Ringers, Lactated) 1,000 mls @ 75 mls/hr IV ASDIRECTED [facility] Stop: 12/16/19 06:14 Last Admin: 12/15/19 17:51 Dose: 75 mls/hr Documented by: Non-Formulary Medication (Valsartan/Hydrochlorothiazide [Valsartan-Hctz 160-12.5 Mg Tab]) 1 each PO DAILY [facility] - Exam Quality Assessment: DVT Prophylaxis. No: Supplemental Oxygen General: Alert, Oriented, No Acute Distress Neck: Supple Lungs: Clear to Auscultation, Normal Respiratory Effort Cardiovascular: Regular Rate, Regular Rhythm GI/Abdominal Exam: Normal Bowel Sounds, Soft, Non-Tender, No Organomegaly, No Distention, No Abnormal Bruit, No Mass, Pelvis Stable Extremities: Normal Capillary Refill, Pedal Edema (trace), Leg Pain (left hip), Limited Range of Motion (left hip- unable to flex/extend, mild pain with abduction and aduction). No: Redness Peripheral Pulses: 2+: Posterior Tibial (L), Dorsalis Pedis (L) Skin: Warm, Dry, Intact Neurological: No New Focal Deficit Psy/Mental Status: Alert, Normal Affect, Normal Mood Sepsis Event Note - Evaluation Sepsis Screening Result: No Definite Risk - Focused Exam Vital Signs: Vital Signs Temp Pulse Resp BP BP Pulse Ox 12/16/19 08:45 142/53 H 12/16/19 08:00 99 F 81 16 142/53 H 93 L 12/16/19 04:00 99 F 86 18 145/84 H 95 12/16/19 00:00 89.9 F L 84 18 138/75 95 - Problem List & Annotations (1) Pelvic ring fracture SNOMED Code(s): 52149767 Code(s): S32.810A - MULTIPLE FX OF PELVIS W STABLE DISRUPT OF PELVIC RING, INIT Status: Acute Current Visit: Yes Qualifiers: Encounter type: initial encounter Fracture type: closed Qualified Code(s): S32.810A - Multiple fractures of pelvis with stable disruption of pelvic ring, initial encounter for closed fracture (2) Parkinson disease SNOMED Code(s): 17629653 Code(s): G20 - PARKINSON'S DISEASE Status: Chronic Current Visit: Yes (3) Type 2 diabetes mellitus SNOMED Code(s): 52613886 Code(s): E11.9 - TYPE 2 DIABETES MELLITUS WITHOUT COMPLICATIONS Status: Chronic Current Visit: Yes Qualifiers: Diabetes mellitus halfway insulin use: without intermediate accountant use Diabetes mellitus complication status: without complication Qualified Code(s): E11.9 - Type 2 diabetes mellitus without complications - Problem List Review Problem List Initiated/Reviewed/Updated: Yes - My Orders Last 24 Hours: My Active Orders 12/15/19 14:26 Hip Min 2V or 3V w Pelvis Lt [CR] Stat 12/15/19 16:13 Resuscitation Status Routine 12/15/19 16:34 UA RFX BRIAN AND CULT IF INDIC [URIN] Routine 12/15/19 16:55 Acetaminophen/HYDROcodone [[place] 325-5 MG] 1 tab PO Q4H PRN Dextrose 50% in Water 50 ml IV ASDIRECTED PRN Docusate Sodium [Colace] 100 mg PO BID PRN Glucagon,Human Recombinant [GlucaGen] 1 mg IM ASDIRECTED PRN Sodium Chloride 0.9% [Saline Flush] 10 ml FLUSH ASDIRECTED PRN polyethylene glycoL 3350 [MiraLAX] 17 gm PO DAILY PRN 12/15/19 16:55 Patient Status [ADT] Routine Antiembolic Devices [RC] 1000,2200 Bedrest Bedside Commode [RC] ASDIRECTED Blood Glucose Check, Bedside [RC] 0730,1200,1700 Oxygen Therapy [RC] .PRN Pulse Oximetry [RC] .PRN Vital Signs [RC] 0800,1200,1600,2000,0000,0400 Consult to Case Management/Editorial Assistant [CONS] Routine PT Evaluation and Treatment [CONS] Routine Saline Lock Insert [OM.PC] Routine Sequential Compression Device [OM.PC] Per Unit Routine 12/15/19 17:30 Insulin Lispro [HumaLOG] See Protocol SUBCUT WITHMEALSANDBED 12/15/19 Dinner Consistent Carbohydrate Diet [DIET] 12/15/19 20:00 Carbidopa/Levodopa [Sinemet 25-100 mg] 1.5 tab PO BID atorvaSTATin [Lipitor] 40 mg PO BEDTIME glipiZIDE [Glucotrol XL] 10 mg PO BID metFORMIN [Glucophage] 1,000 mg PO BID 12/16/19 08:00 Calcium Carb/D3/Magnesium/Zinc [Raghu Mag Zinc-D Tablet] 1 tab PO DAILY Cholecalciferol (Vitamin D3) [Vitamin D3] 50 mcg PO DAILY Losartan [Cozaar] 100 mg PO DAILY Multivitamins [Tab-A-Stephanie] 1 tab PO DAILY hydroCHLOROthiazide 12.5 mg PO DAILY timoloL maleate [Timoptic 0.5% Ophth Soln] 0 ml EYELF DAILY 12/16/19 08:39 Acetaminophen [Tylenol Extra Strength] 1,000 mg PO Q6H PRN 12/17/19 07:00 BASIC METABOLIC PANEL,BMP [CHEM] DAILY CBC WITH AUTO DIFF [HEME] DAILY - Assessment Assessment:: Pelvic Ring Fracture Parkinson's Disease Type 2 DM - Plan Plan:: Patient doing well today. Pain is well controlled at rest. Does have some discomfort with turns. Has not wanted to take any pain medications. Nursing encouraged her to take Tylenol, to which she was agreeable. She does report this helped. No other concerns. PT will see patient today. She can resume WBAT to LLE. Will start Lovenox for DVT prophylaxis. QID accu checks and SSI as needed. Labs stable. Repeat labs in am. Anticipate patient will need 4-6 wks of either swing bed or SNF for continued PT, especially with her underlying Parkinson disease. Updated son Nick.
[2019-12-16] MEDS: Calcium Carbonate/Vitamin D3 1250 MG-200 Unit Tab PO SCH (17:32)
[2019-12-16] MEDS ORDERED: Latanoprost 0.005% Ophth Soln 2.5 ML Bottle EYEBOTH SCH (20:00)
[2019-12-16] MEDS ORDERED: Enoxaparin 40 MG/0.4 ML Syringe SUBCUT SCH (20:00)
[2019-12-16] MEDS: atorvaSTATin 20 MG Tab PO SCH (20:04)
[2019-12-16] MEDS: Enoxaparin 30 MG/0.3 ML Syringe SUBCUT SCH (20:08)
[2019-12-16] MEDS: LUMIGAN 0.01% EYEBOTH SCH (23:23)
[2019-12-17] MEDS: Acetaminophen 500 MG Tab PO PRN (04:02)
[2019-12-17] MEDS: glipiZIDE 5 MG Tab.ER PO SCH ×2 (07:58→19:51)
[2019-12-17] MEDS: Hydrochlorothiazide 12.5 MG Cap PO SCH (07:59)
[2019-12-17] MEDS: Carbidopa/Levodopa 25-100 MG Tab PO SCH ×2 (07:59→19:52)
[2019-12-17] MEDS: Calcium Carbonate/Vitamin D3 1250 MG-200 Unit Tab PO SCH ×2 (07:59→17:23)
[2019-12-17] MEDS: Multivitamin Tab PO SCH (07:59)
[2019-12-17] MEDS: Losartan 100 MG Tab PO SCH (07:59)
[2019-12-17] MEDS: metFORMIN 500 MG Tab PO SCH ×2 (08:00→19:51)
[2019-12-17] MEDS: Cholecalciferol (Vitamin D3) 25 MCG Tab PO SCH (08:00)
[2019-12-17] MEDS: Insulin Lispro 100 Units/ML 3 ML Vial SUBCUT SCH ×4 (08:02→20:00)
[2019-12-17] MEDS: TIMOLOL MALEATE 0.5% EYELF SCH (08:03)
[2019-12-17] MEDS: LUMIGAN 0.01% EYEBOTH SCH (08:05)
--- NOTE | 2019-12-17 08:38 | PCM.PN ---
- General Info Date of Service: 12/17/19 Admission Dx/Problem (Free Text): Pelvic Fracture Parkinson's Disease Type 2 DM Subjective Update: Alida is a very pleasant 89 yo female who was admitted 12/15/2019 for left pelvic fracture sustained from a fall at home. She reports she had an uneventful evening. She denies any pain at rest. Did attempt to get up to the commode yesterday with nursing staff and patient did not tolerate well. Took assist of 3. She had pain with weight bearing, however has not taken anything for pain. She denies any new symptoms and reports she is feeling well. Functional Status: Reports: Pain Controlled, Tolerating Diet, Urinating. Nimesh es: Ambulating, New Symptoms - Review of Systems General: Reports: Weakness. Denies: Fever, Fatigue, Chills HEENT: Reports: No Symptoms Pulmonary: Reports: No Symptoms. Denies: Shortness of Breath Cardiovascular: Reports: No Symptoms. Denies: Chest Pain, Edema Gastrointestinal: Reports: No Symptoms. Denies: Abdominal Pain, Constipation, Decreased Appetite, Nausea, Vomiting Genitourinary: Reports: No Symptoms, Incontinence Musculoskeletal: Reports: Leg Pain (left, with weight bearing) Skin: Reports: No Symptoms Neurological: Reports: Tremors, Difficulty Walking Psychiatric: Reports: No Symptoms - Patient Data Vitals - Most Recent: Last Vital Signs Temp 95.8 F L 12/17/19 07:58 Pulse 83 12/17/19 07:58 Resp 18 12/17/19 07:58 BP 136/65 12/17/19 07:59 Pulse Ox 93 L 12/17/19 07:58 Weight - Most Recent: 170 lb Lab Results Last 24 Hours: Laboratory Results - last 24 hr 12/15/19 12/16/19 12/16/19 Range/Units 20:09 12:27 16:00 WBC (5.0-10.0) 10^3/uL RBC (4.00-5.50) 10^6/uL Hgb (12.0-16.0) g/dL Hct (37.0-47.0) % MCV (82.0-94.0) fL MCH (27.0-32.0) pg MCHC (33.0-38.0) g/dL RDW Coeff of Andres (11.0-15.0) % Plt Count (150-400) 10^3/uL Neut % (Auto) (35-85) % Lymph % (Auto) (10-55) % [place] % (Auto) (0-16) % Eos % (Auto) (0-5) % Baso % (Auto) (0-3) % Neut # (Auto) (1.80-7.00) 10^3/uL Lymph # (Auto) (1.00-4.80) 10^3/uL [place] # (Auto) (0.00-0.80) 10^3/uL Eos # (Auto) (0.00-0.45) 10^3/uL Baso # (Auto) 10^3/uL Sodium (136-145) mEq/L Potassium (3.5-5.0) mEq/L Chloride (98-106) mEq/L Carbon Dioxide (21-32) mmol/L BUN (7-18) mg/dL Creatinine (0.6-1.0) mg/dL Est Cr Clr Drug Dosing mL/min Estimated GFR (MDRD) (>=60) mL/min Glucose (75-99) mg/dL POC Glucose 297 H 195 H (75-105) mg/dl Calcium (8.4-10.1) mg/dL Urine Color Yellow (YELLOW) Urine Appearance Clear (CLEAR) Urine pH 6.0 (4.5-8.0) Ur Specific [place] 1.025 H (1.003-1.020) Urine Protein Trace H (NEGATIVE) mg/dL Urine Glucose (UA) Negative (NEGATIVE) mg/dL Urine Ketones Negative (NEGATIVE) mg/dL Urine Occult Blood Negative (NEGATIVE) Urine Nitrite Negative (NEGATIVE) Urine Bilirubin Negative (NEGATIVE) Urine Urobilinogen 0.2 (0.2-1.0) EU/dL Ur Leukocyte Esterase Negative (NEGATIVE) Urine RBC Not seen (0-5) /HPF Urine WBC Not seen (0-5) /HPF Amorphous Sediment Many H (NOT SEEN) /HPF 12/16/19 12/16/19 12/17/19 Range/Units 17:02 20:06 07:10 WBC 10.9 H (5.0-10.0) 10^3/uL RBC 2.85 L (4.00-5.50) 10^6/uL Hgb 9.0 L (12.0-16.0) g/dL Hct 27.3 L (37.0-47.0) % MCV 95.8 H (82.0-94.0) fL MCH 31.6 (27.0-32.0) pg MCHC 33.0 (33.0-38.0) g/dL RDW Coeff of Andres 14.2 (11.0-15.0) % Plt Count 207 (150-400) 10^3/uL Neut % (Auto) 72.3 (35-85) % Lymph % (Auto) 15.5 (10-55) % [place] % (Auto) 9.6 (0-16) % Eos % (Auto) 2.4 (0-5) % Baso % (Auto) 0.2 (0-3) % Neut # (Auto) 7.88 H (1.80-7.00) 10^3/uL Lymph # (Auto) 1.69 (1.00-4.80) 10^3/uL [place] # (Auto) 1.05 H (0.00-0.80) 10^3/uL Eos # (Auto) 0.26 (0.00-0.45) 10^3/uL Baso # (Auto) 0.02 10^3/uL Sodium (136-145) mEq/L Potassium (3.5-5.0) mEq/L Chloride (98-106) mEq/L Carbon Dioxide (21-32) mmol/L BUN (7-18) mg/dL Creatinine (0.6-1.0) mg/dL Est Cr Clr Drug Dosing mL/min Estimated GFR (MDRD) (>=60) mL/min Glucose (75-99) mg/dL POC Glucose 125 H 270 H (75-105) mg/dl Calcium (8.4-10.1) mg/dL Urine Color (YELLOW) Urine Appearance (CLEAR) Urine pH (4.5-8.0) Ur Specific [place] (1.003-1.020) Urine Protein (NEGATIVE) mg/dL Urine Glucose (UA) (NEGATIVE) mg/dL Urine Ketones (NEGATIVE) mg/dL Urine Occult Blood (NEGATIVE) Urine Nitrite (NEGATIVE) Urine Bilirubin (NEGATIVE) Urine Urobilinogen (0.2-1.0) EU/dL Ur Leukocyte Esterase (NEGATIVE) Urine RBC (0-5) /HPF Urine WBC (0-5) /HPF Amorphous Sediment (NOT SEEN) /HPF 12/17/19 12/17/19 Range/Units 07:10 07:58 WBC (5.0-10.0) 10^3/uL RBC (4.00-5.50) 10^6/uL Hgb (12.0-16.0) g/dL Hct (37.0-47.0) % MCV (82.0-94.0) fL MCH (27.0-32.0) pg MCHC (33.0-38.0) g/dL RDW Coeff of Andres (11.0-15.0) % Plt Count (150-400) 10^3/uL Neut % (Auto) (35-85) % Lymph % (Auto) (10-55) % [place] % (Auto) (0-16) % Eos % (Auto) (0-5) % Baso % (Auto) (0-3) % Neut # (Auto) (1.80-7.00) 10^3/uL Lymph # (Auto) (1.00-4.80) 10^3/uL [place] # (Auto) (0.00-0.80) 10^3/uL Eos # (Auto) (0.00-0.45) 10^3/uL Baso # (Auto) 10^3/uL Sodium 137 (136-145) mEq/L Potassium 3.8 (3.5-5.0) mEq/L Chloride 101 (98-106) mEq/L Carbon Dioxide 26 (21-32) mmol/L BUN 23 H (7-18) mg/dL Creatinine 1.1 H (0.6-1.0) mg/dL Est Cr Clr Drug Dosing 29.24 mL/min Estimated GFR (MDRD) 47 L (>=60) mL/min Glucose 119 H (75-99) mg/dL POC Glucose 159 H (75-105) mg/dl Calcium 8.7 (8.4-10.1) mg/dL Urine Color (YELLOW) Urine Appearance (CLEAR) Urine pH (4.5-8.0) Ur Specific [place] (1.003-1.020) Urine Protein (NEGATIVE) mg/dL Urine Glucose (UA) (NEGATIVE) mg/dL Urine Ketones (NEGATIVE) mg/dL Urine Occult Blood (NEGATIVE) Urine Nitrite (NEGATIVE) Urine Bilirubin (NEGATIVE) Urine Urobilinogen (0.2-1.0) EU/dL Ur Leukocyte Esterase (NEGATIVE) Urine RBC (0-5) /HPF Urine WBC (0-5) /HPF Amorphous Sediment (NOT SEEN) /HPF Med Orders - Current: Current Medications Acetaminophen (Tylenol Extra Strength) 1,000 mg PO Q6H PRN PRN Reason: Pain (Mild 1-3)/fever Last Admin: 12/17/19 04:02 Dose: 1,000 mg Documented by: Hydrocodone Bitart/Acetaminophen ([place] 325-5 Mg) 1 tab PO Q4H PRN PRN Reason: Pain (moderate 4-6) Atorvastatin Calcium (Lipitor) 40 mg PO BEDTIME [facility] Last Admin: 12/16/19 20:04 Dose: 40 mg Documented by: Calcium Carbonate (Calcium Carbonate/Vitamin D 1250 Mg-200 Unit) 1 tab PO BIDMEALS [facility] Last Admin: 12/17/19 07:59 Dose: 1 tab Documented by: Carbidopa/Levodopa (Sinemet 25-100 Mg) 1.5 tab PO BID [facility] Last Admin: 12/17/19 07:59 Dose: 1.5 tab Documented by: Cholecalciferol (Vitamin D3) 50 mcg PO DAILY [facility] Last Admin: 12/17/19 08:00 Dose: 50 mcg Documented by: Dextrose/Water (Dextrose 50% In Water) 50 ml IV ASDIRECTED PRN PRN Reason: Hypoglycemia Docusate Sodium (Colace) 100 mg PO BID PRN PRN Reason: Constipation Enoxaparin Sodium (Lovenox) 30 mg SUBCUT Q24H [facility] Last Admin: 12/16/19 20:08 Dose: 30 mg Documented by: Glipizide (Glucotrol Xl) 10 mg PO BID [facility] Last Admin: 12/17/19 07:58 Dose: 10 mg Documented by: Glucagon (Glucagen) 1 mg IM ASDIRECTED PRN PRN Reason: Hypoglycemia Hydrochlorothiazide (Hydrochlorothiazide) 12.5 mg PO DAILY [facility] Last Admin: 12/17/19 07:59 Dose: 12.5 mg Documented by: Insulin Human Lispro (Humalog) 0 unit SUBCUT WITHMEALSANDBED [facility]; Protocol Last Admin: 12/17/19 08:02 Dose: 2 units Documented by: Losartan Potassium (Cozaar) 100 mg PO DAILY [facility] Last Admin: 12/17/19 07:59 Dose: 100 mg Documented by: Metformin HCl (Glucophage) 1,000 mg PO BID [facility] Last Admin: 12/17/19 08:00 Dose: 1,000 mg Documented by: Multivitamins/Minerals/Vitamin C (Tab-A-Stephanie) 1 tab PO DAILY [facility] Last Admin: 12/17/19 07:59 Dose: 1 tab Documented by: Timolol Maleate Solution 0.5% Ptom 0 each EYELF DAILY [facility] Last Admin: 12/17/19 08:03 Dose: 1 each Documented by: [place] 0.01% Ophth (Own Med) 0 each EYEBOTH BID [facility] Last Admin: 12/17/19 08:05 Dose: Not Given Documented by: Polyethylene Glycol (Miralax) 17 gm PO DAILY PRN PRN Reason: Constipation Sodium Chloride (Saline Flush) 10 ml FLUSH ASDIRECTED PRN PRN Reason: Keep Vein Open Discontinued Medications Acetaminophen (Tylenol) 1,000 mg PO Q6H PRN PRN Reason: Pain (Mild 1-3)/fever Enoxaparin Sodium (Lovenox) 40 mg SUBCUT Q24H [facility] Lactated Ringer's (Ringers, Lactated) 1,000 mls @ 75 mls/hr IV ASDIRECTED [facility] Stop: 12/16/19 06:14 Last Admin: 12/15/19 17:51 Dose: 75 mls/hr Documented by: Latanoprost (Xalatan 0.005% Ophth Soln) 0 ml EYEBOTH BEDTIME [facility] Last Admin: 12/16/19 23:24 Dose: Not Given Documented by: Non-Formulary Medication (Calcium Carb/D3/Magnesium/Zinc [Raghu Mag Zinc-D Tablet]) 1 tab PO DAILY [facility] Last Admin: 12/16/19 12:33 Dose: Not Given Documented by: Non-Formulary Medication (Valsartan/Hydrochlorothiazide [Valsartan-Hctz 160-12.5 Mg Tab]) 1 each PO DAILY [facility] Timolol Maleate (Timoptic 0.5% Ophth Soln) 0 ml EYELF DAILY [facility] Last Admin: 12/16/19 10:43 Dose: Not Given Documented by: - Exam Quality Assessment: DVT Prophylaxis (Lovenox, SCDs & Teds) General: Alert, Oriented, No Acute Distress Neck: Supple Lungs: Clear to Auscultation, Normal Respiratory Effort Cardiovascular: Regular Rate, Regular Rhythm GI/Abdominal Exam: Normal Bowel Sounds, Soft, Non-Tender, No Organomegaly, No Distention, No Abnormal Bruit, No Mass, Pelvis Stable Extremities: Normal Inspection, Non-Tender, Normal Capillary Refill, Pedal Edema (trace), Limited Range of Motion (left hip) Peripheral Pulses: 2+: Posterior Tibial (L), Dorsalis Pedis (L) Skin: Warm, Dry, Intact Neurological: No New Focal Deficit Psy/Mental Status: Alert, Normal Affect, Normal Mood Sepsis Event Note - Evaluation Sepsis Screening Result: No Definite Risk - Focused Exam Vital Signs: Vital Signs Temp Pulse Resp BP BP Pulse Ox 12/17/19 07:59 136/65 12/17/19 07:58 95.8 F L 83 18 136/65 93 L 12/17/19 04:00 98.3 F 84 22 H 131/58 L 93 L 12/17/19 00:00 99.3 F 94 24 H 140/68 94 L - Problem List & Annotations (1) Pelvic ring fracture SNOMED Code(s): 42511823 Code(s): S32.810A - MULTIPLE FX OF PELVIS W STABLE DISRUPT OF PELVIC RING, INIT Status: Acute Current Visit: Yes Qualifiers: Encounter type: initial encounter Fracture type: closed Qualified Code(s): S32.810A - Multiple fractures of pelvis with stable disruption of pelvic ring, initial encounter for closed fracture (2) Parkinson disease SNOMED Code(s): 03256798 Code(s): G20 - PARKINSON'S DISEASE Status: Chronic Current Visit: Yes (3) Type 2 diabetes mellitus SNOMED Code(s): 84951170 Code(s): E11.9 - TYPE 2 DIABETES MELLITUS WITHOUT COMPLICATIONS Status: Chronic Current Visit: Yes Qualifiers: Diabetes mellitus long term care social worker insulin use: without fdc use Diabetes mellitus complication status: without complication Qualified Code(s): E11.9 - Type 2 diabetes mellitus without complications - Problem List Review Problem List Initiated/Reviewed/Updated: Yes - My Orders Last 24 Hours: My Active Orders 12/16/19 08:00 Cholecalciferol (Vitamin D3) [Vitamin D3] 50 mcg PO DAILY Losartan [Cozaar] 100 mg PO DAILY Multivitamins [Tab-A-Stephanie] 1 tab PO DAILY hydroCHLOROthiazide 12.5 mg PO DAILY 12/16/19 08:39 Acetaminophen [Tylenol Extra Strength] 1,000 mg PO Q6H PRN 12/16/19 10:19 Communication Order [RC] DAILY 12/16/19 17:30 Calcium Carbonate/Vitamin D3 [Calcium Carbonate/Vitamin D 1250 MG-200 Unit] 1 tab PO BIDMEALS 12/16/19 20:00 Enoxaparin [Lovenox] 30 mg SUBCUT Q24H 12/17/19 08:00 Non-Formulary Medication [NF Drug] 0 each EYELF DAILY - Assessment Assessment:: Pelvic Ring Fracture Parkinson's Disease Type 2 DM - Plan Plan:: Patient doing well without complaints today. Pain well controlled at rest without any pain medication. Did encourage patient to take something for pain prior to PT. Patient WBAT to LLE. Encouraged patient to possibly get up to chair today. Continue Lovenox for DVT prophylaxis. Hgb stable at 9.0. WBC trending down. UA was negative. Labs otherwise stable. Blood sugars have been stable. Anticipate patient will need 4-6 wks of either swing bed or SNF for continued PT, especially with her underlying Parkinson disease. Case management to assist with discharge planning.
[2019-12-17] MEDS: atorvaSTATin 20 MG Tab PO SCH (19:52)
[2019-12-17] MEDS: Enoxaparin 30 MG/0.3 ML Syringe SUBCUT SCH (19:53)
[2019-12-17] MEDS ORDERED: LUMIGAN 0.01% EYEBOTH SCH (20:00)
[2019-12-18] MEDS: Acetaminophen 500 MG Tab PO PRN (05:03)
[2019-12-18 07:32] VITALS: BP 147/71; PULSE 83
[2019-12-18] MEDS: Calcium Carbonate/Vitamin D3 1250 MG-200 Unit Tab PO SCH (07:33)
[2019-12-18] MEDS: Carbidopa/Levodopa 25-100 MG Tab PO SCH (07:33)
[2019-12-18] MEDS: Cholecalciferol (Vitamin D3) 25 MCG Tab PO SCH (07:34)
[2019-12-18] MEDS: Losartan 100 MG Tab PO SCH (07:34)
[2019-12-18] MEDS: Hydrochlorothiazide 12.5 MG Cap PO SCH (07:35)
[2019-12-18] MEDS: glipiZIDE 5 MG Tab.ER PO SCH (07:36)
[2019-12-18] MEDS: metFORMIN 500 MG Tab PO SCH (07:36)
[2019-12-18] MEDS: Multivitamin Tab PO SCH (07:36)
[2019-12-18] MEDS: Insulin Lispro 100 Units/ML 3 ML Vial SUBCUT SCH (07:37)
[2019-12-18] MEDS: TIMOLOL MALEATE 0.5% EYELF SCH (09:07)
--- NOTE | 2019-12-18 09:15 | PCM.DCSUM1 ---
Discharge Summary - Hospital Course Free Text/Narrative:: Alida is an 89 year old female who presented to the ER with family with complaints of left hip pain. States she "got her feet hung up together in the bathroom and fell and landed on her left hip". Was unable to get up unassisted and her caregiver who arrived at her home found her. Patient had not thought to push her Life Alert. Does have history of Parkinson's disease. No head her injury or have any LOC. Complained of left hip pain. No dizziness, chest pain or shortness of breath. Unable to bear weight on LLE. Was found to have pelvic ring fracture. Admitted for physical therapy and pain control. Diagnosis: Stroke: No Modified Richland Scale: No Symptoms at All Modified Richland Scale Score: 0 - Discharge Data Discharge Date: 12/18/19 Discharge Disposition: DC/Tfer W/I Hosp To Swing Condition: Stable - Referral to Home Health Primary Care Physician: Kaylin Cole NP - Patient Summary/Data Complications: none Consults: Consultations 12/15/19 16:55 Consult to Case Management/Senior Electrical Engineer [CONS] Routine PT Evaluation and Treatment [CONS] Routine Hospital Course: Patient is stable. Does still pain of frequent pain, especially with any movement. Is currently no weight bearing to left leg. Pivots from bed to chair with walker and assistance. Working with PT. Appetite has been good. Will discharge to swing bed for further assistance/physical therapy until able to return home again with caregiver. - Patient Instructions Diet: Usual Diet as Tolerated Activity: Non Weight Bearing - Discharge Plan *PRESCRIPTION DRUG MONITORING PROGRAM REVIEWED*: Not Applicable *COPY OF PRESCRIPTION DRUG MONITORING REPORT IN PATIENT JESSICA: Not Applicable Home Medications: Home Meds Cholecalciferol (Vitamin D3) [Vitamin D3] 2,000 unit PO DAILY 06/18/14 [History] Lutein 20 mg PO DAILY 06/18/14 [History] Valsartan/Hydrochlorothiazide [Valsartan-Hctz 160-12.5 mg Tab] 1 each PO DAILY 06/18/14 [History] atorvaSTATin Calcium [Atorvastatin Calcium] 40 mg PO BEDTIME 06/18/14 [History] glipiZIDE [Glipizide ER] 10 mg PO BID 06/18/14 [History] metFORMIN [Glucophage] 1,000 mg PO BID 06/18/14 [History] timoloL maleate [Timoptic 0.5% Ocudose] 1 drop EYELF DAILY 06/18/14 [History] Carbidopa/Levodopa [Carbidopa-Levodopa 25-100] 1.5 tab PO BID 06/19/14 [History] Clopidogrel [Plavix] 75 mg PO DAILY #30 tablet 06/19/14 [Rx] Calcium Carb/D3/Magnesium/Zinc [Raghu Mag Zinc-D Tablet] 1 tab PO DAILY 05/14/16 [History] Iron 1 tab PO DAILY 05/14/16 [History] Multivitamin [Multi-Vitamin Daily] 1 tab PO DAILY 05/14/16 [History] Bimatoprost [LUMIGAN 0.01% Ophth Soln] 1 drop EYEBOTH BEDTIME 12/16/19 [History] Forms: ED Department Discharge Referrals: PCP,Unobtain [Ordering Only Provider] - - Discharge Summary/Plan Comment DC Time >30 min.: No - General Info Date of Service: 12/18/19 Admission Dx/Problem (Free Text: Pelvic Fracture Parkinson's Disease Type 2 DM Functional Status: Reports: Pain Controlled, Tolerating Diet, Urinating. Denies: Ambulating - Review of Systems General: Reports: Weakness HEENT: Reports: No Symptoms Pulmonary: Denies: Shortness of Breath, Cough Cardiovascular: Denies: Chest Pain, Edema, Lightheadedness Gastrointestinal: Denies: Abdominal Pain, Nausea, Vomiting Genitourinary: Reports: No Symptoms Musculoskeletal: Reports: Leg Pain, Joint Pain Skin: Reports: No Symptoms Neurological: Reports: Pre-Existing Deficit (does have generalized weakness/tremors related to parkinson's disease), Weakness - Patient Data Vitals - Most Recent: Last Vital Signs Temp 97.8 F 12/18/19 07:29 Pulse 83 12/18/19 07:29 Resp 20 12/18/19 07:29 BP 147/71 H 12/18/19 07:34 Pulse Ox 96 12/18/19 07:29 Weight - Most Recent: 170 lb Lab Results - Last 24 hrs: Laboratory Results - last 24 hr 12/17/19 12/17/19 12/17/19 Range/Units 11:56 17:19 19:50 POC Glucose 191 H 173 H 270 H (75-105) mg/dl 12/18/19 Range/Units 07:32 POC Glucose 102 (75-105) mg/dl Med Orders - Current: Current Medications Acetaminophen (Tylenol Extra Strength) 1,000 mg PO Q6H PRN PRN Reason: Pain (Mild 1-3)/fever Last Admin: 12/18/19 05:03 Dose: 1,000 mg Documented by: Hydrocodone Bitart/Acetaminophen ([place] 325-5 Mg) 1 tab PO Q4H PRN PRN Reason: Pain (moderate 4-6) Last Admin: 12/17/19 09:12 Dose: 1 tab Documented by: Atorvastatin Calcium (Lipitor) 40 mg PO BEDTIME [facility] Last Admin: 12/17/19 19:52 Dose: 40 mg Documented by: Calcium Carbonate (Calcium Carbonate/Vitamin D 1250 Mg-200 Unit) 1 tab PO BIDMEALS [facility] Last Admin: 12/18/19 07:33 Dose: 1 tab Documented by: Carbidopa/Levodopa (Sinemet 25-100 Mg) 1.5 tab PO BID [facility] Last Admin: 12/18/19 07:33 Dose: 1.5 tab Documented by: Cholecalciferol (Vitamin D3) 50 mcg PO DAILY [facility] Last Admin: 12/18/19 07:34 Dose: 50 mcg Documented by: Dextrose/Water (Dextrose 50% In Water) 50 ml IV ASDIRECTED PRN PRN Reason: Hypoglycemia Docusate Sodium (Colace) 100 mg PO BID PRN PRN Reason: Constipation Enoxaparin Sodium (Lovenox) 30 mg SUBCUT Q24H [facility] Last Admin: 12/17/19 19:53 Dose: 30 mg Documented by: Glipizide (Glucotrol Xl) 10 mg PO BID [facility] Last Admin: 12/18/19 07:36 Dose: 10 mg Documented by: Glucagon (Glucagen) 1 mg IM ASDIRECTED PRN PRN Reason: Hypoglycemia Hydrochlorothiazide (Hydrochlorothiazide) 12.5 mg PO DAILY [facility] Last Admin: 12/18/19 07:35 Dose: 12.5 mg Documented by: Insulin Human Lispro (Humalog) 0 unit SUBCUT WITHMEALSANDBED [facility]; Protocol Last Admin: 12/18/19 07:37 Dose: Not Given Documented by: Losartan Potassium (Cozaar) 100 mg PO DAILY [facility] Last Admin: 12/18/19 07:34 Dose: 100 mg Documented by: Metformin HCl (Glucophage) 1,000 mg PO BID [facility] Last Admin: 12/18/19 07:36 Dose: 1,000 mg Documented by: Multivitamins/Minerals/Vitamin C (Tab-A-Stephanie) 1 tab PO DAILY [facility] Last Admin: 12/18/19 07:36 Dose: 1 tab Documented by: Timolol Maleate Solution 0.5% Ptom 0 each EYELF DAILY [facility] Last Admin: 12/18/19 09:07 Dose: 1 each Documented by: Lumigan 0.01% Ophth (Own Med) 0 each EYEBOTH BEDTIME [facility] Last Admin: 12/17/19 19:54 Dose: 1 each Documented by: Polyethylene Glycol (Miralax) 17 gm PO DAILY PRN PRN Reason: Constipation Sodium Chloride (Saline Flush) 10 ml FLUSH ASDIRECTED PRN PRN Reason: Keep Vein Open Discontinued Medications Acetaminophen (Tylenol) 1,000 mg PO Q6H PRN PRN Reason: Pain (Mild 1-3)/fever Enoxaparin Sodium (Lovenox) 40 mg SUBCUT Q24H [facility] Lactated Ringer's (Ringers, Lactated) 1,000 mls @ 75 mls/hr IV ASDIRECTED [facility] Stop: 12/16/19 06:14 Last Admin: 12/15/19 17:51 Dose: 75 mls/hr Documented by: Latanoprost (Xalatan 0.005% Ophth Soln) 0 ml EYEBOTH BEDTIME [facility] Last Admin: 12/16/19 23:24 Dose: Not Given Documented by: Non-Formulary Medication (Calcium Carb/D3/Magnesium/Zinc [Raghu Mag Zinc-D Tablet]) 1 tab PO DAILY [facility] Last Admin: 12/16/19 12:33 Dose: Not Given Documented by: Non-Formulary Medication (Valsartan/Hydrochlorothiazide [Valsartan-Hctz 160-12.5 Mg Tab]) 1 each PO DAILY [facility] Lumigan 0.01% Ophth (Own Med) 0 each EYEBOTH BID [facility] Last Admin: 12/17/19 08:05 Dose: Not Given Documented by: Timolol Maleate (Timoptic 0.5% Ophth Soln) 0 ml EYELF DAILY [facility] Last Admin: 12/16/19 10:43 Dose: Not Given Documented by: - Exam General: Reports: Alert, Oriented HEENT: Reports: Mucous Membr. Moist/[place] Neck: Reports: Supple Lungs: Reports: Clear to Auscultation, Normal Respiratory Effort Cardiovascular: Reports: Regular Rate, Regular Rhythm GI/Abdominal Exam: Normal Bowel Sounds, Soft, Non-Tender Extremities: Limited Range of Motion, Other (pain to left hip with palpation) Skin: Reports: Warm, Dry Neurological: Reports: No New Focal Deficit
== END 2019-12-18 08:46 | disposition swing bed (61) | DRG 536 ==
LOC: CC.ED 14:04 → UNDOADMIN 15:27 → CC.MS 15:27 → UNDOADMIN 16:11 → CC.MS 16:13 → UNDOADMIN 16:13
PROVIDERS: ADMIT Nurse Practitioner Family; ATTEND Family Medicine
DX: S32.810A Multiple fractures of pelvis with stable disruption of pelvic ring, initial encounter for closed fracture (principal); J30.9 Allergic rhinitis, unspecified; H54.7 Unspecified visual loss; E78.00 Pure hypercholesterolemia, unspecified; M19.90 Unspecified osteoarthritis, unspecified site; M81.0 Age-related osteoporosis without current pathological fracture; E55.9 Vitamin D deficiency, unspecified; H35.30 Unspecified macular degeneration; Z20.828 Contact with and (suspected) exposure to other viral communicable diseases; I48.91 Unspecified atrial fibrillation; I10 Essential (primary) hypertension; G20 Parkinson's disease; E11.9 Type 2 diabetes mellitus without complications; D51.0 Vitamin B12 deficiency anemia due to intrinsic factor deficiency; Z85.3 Personal history of malignant neoplasm of breast; D64.9 Anemia, unspecified; Z79.02 Long term (current) use of antithrombotics/antiplatelets; Z79.84 Long term (current) use of oral hypoglycemic drugs; Z79.899 Other long term (current) drug therapy; Z98.49 Cataract extraction status, unspecified eye; Z86.73 Personal history of transient ischemic attack (TIA), and cerebral infarction without residual deficits; W18.30XA Fall on same level, unspecified, initial encounter; Y92.002 Bathroom of unspecified non-institutional (private) residence as the place of occurrence of the external cause
CPT/HCPCS: 36415; 80048; 80053; 81001; 82962; 83735; 84484; 85025; 97110-GP; 97161-GP; 97530-GP; 99284-25; A9270-GY; J1650; J1815-GY; J7120; U0002

== ENCOUNTER 2019-12-18 08:45 | Inpatient (IN) | payer MEDICARE, BC ==
[2019-12-18] MEDS ORDERED: Sodium Chloride 0.9% 10 ML Syringe FLUSH PRN ×2 (10:28)
[2019-12-18] MEDS ORDERED: Acetaminophen/HYDROcodone 325-5 MG Tab PO PRN (10:28)
[2019-12-18] MEDS ORDERED: Polyethylene Glycol 3350 Powder 17 GM Packet PO PRN (10:28)
[2019-12-18] MEDS ORDERED: Glucagon,Human Recombinant 1 MG Vial IM PRN ×2 (10:28)
[2019-12-18] MEDS ORDERED: Docusate Sodium 100 MG Cap PO PRN (10:28)
[2019-12-18] MEDS ORDERED: 50% Dextrose in Water 50 ML Syringe IV PRN (10:28)
[2019-12-18] MEDS: Insulin Lispro 100 Units/ML 3 ML Vial SUBCUT SCH ×3 (12:06→20:47)
[2019-12-18] MEDS: Calcium Carbonate/Vitamin D3 1250 MG-200 Unit Tab PO SCH (17:25)
[2019-12-18] MEDS: Enoxaparin 30 MG/0.3 ML Syringe SUBCUT SCH (19:59)
[2019-12-18] MEDS: atorvaSTATin 20 MG Tab PO SCH (19:59)
[2019-12-18] MEDS: glipiZIDE 5 MG Tab.ER PO SCH (20:00)
[2019-12-18] MEDS: Carbidopa/Levodopa 25-100 MG Tab PO SCH (20:00)
[2019-12-18] MEDS: metFORMIN 500 MG Tab PO SCH (20:01)
[2019-12-18] MEDS: Acetaminophen 500 MG Tab PO PRN (20:04)
[2019-12-18] MEDS: LUMIGAN 0.01% EYEBOTH SCH (20:11)
[2019-12-19] MEDS: Losartan 100 MG Tab PO SCH (07:48)
[2019-12-19] MEDS: Calcium Carbonate/Vitamin D3 1250 MG-200 Unit Tab PO SCH ×2 (07:48→17:42)
[2019-12-19] MEDS: Carbidopa/Levodopa 25-100 MG Tab PO SCH ×2 (07:49→19:44)
[2019-12-19] MEDS: Multivitamin Tab PO SCH (07:49)
[2019-12-19] MEDS: metFORMIN 500 MG Tab PO SCH ×2 (07:50→19:45)
[2019-12-19] MEDS: glipiZIDE 5 MG Tab.ER PO SCH ×2 (07:50→19:45)
[2019-12-19] MEDS: Hydrochlorothiazide 12.5 MG Cap PO SCH (07:51)
[2019-12-19] MEDS: Insulin Lispro 100 Units/ML 3 ML Vial SUBCUT SCH ×4 (07:52→20:51)
[2019-12-19] MEDS: Cholecalciferol (Vitamin D3) 25 MCG Tab PO SCH (07:52)
[2019-12-19] MEDS: TIMOLOL MALEATE 0.5% EYELF SCH (07:55)
[2019-12-19] MEDS: atorvaSTATin 20 MG Tab PO SCH (19:44)
[2019-12-19] MEDS: Enoxaparin 30 MG/0.3 ML Syringe SUBCUT SCH (19:45)
[2019-12-19] MEDS: LUMIGAN 0.01% EYEBOTH SCH (19:47)
[2019-12-19] MEDS: Acetaminophen 500 MG Tab PO PRN (19:51)
[2019-12-20] MEDS: Acetaminophen 500 MG Tab PO PRN ×2 (03:02→20:07)
[2019-12-20] MEDS: glipiZIDE 5 MG Tab.ER PO SCH ×2 (07:54→20:08)
[2019-12-20] MEDS: Losartan 100 MG Tab PO SCH (07:54)
[2019-12-20] MEDS: metFORMIN 500 MG Tab PO SCH ×2 (07:54→20:07)
[2019-12-20] MEDS: Cholecalciferol (Vitamin D3) 25 MCG Tab PO SCH (07:54)
[2019-12-20] MEDS: Hydrochlorothiazide 12.5 MG Cap PO SCH (07:55)
[2019-12-20] MEDS: Multivitamin Tab PO SCH (07:55)
[2019-12-20] MEDS: Carbidopa/Levodopa 25-100 MG Tab PO SCH ×2 (07:55→20:07)
[2019-12-20] MEDS: Calcium Carbonate/Vitamin D3 1250 MG-200 Unit Tab PO SCH ×2 (07:55→17:26)
[2019-12-20] MEDS: TIMOLOL MALEATE 0.5% EYELF SCH (07:57)
[2019-12-20] MEDS: Insulin Lispro 100 Units/ML 3 ML Vial SUBCUT SCH ×4 (07:57→20:13)
[2019-12-20] MEDS: Enoxaparin 30 MG/0.3 ML Syringe SUBCUT SCH (20:06)
[2019-12-20] MEDS: atorvaSTATin 20 MG Tab PO SCH (20:07)
[2019-12-20] MEDS: LUMIGAN 0.01% EYEBOTH SCH (20:12)
[2019-12-21] MEDS: Calcium Carbonate/Vitamin D3 1250 MG-200 Unit Tab PO SCH ×2 (08:08→17:11)
[2019-12-21] MEDS: Carbidopa/Levodopa 25-100 MG Tab PO SCH ×2 (08:08→19:43)
[2019-12-21] MEDS: glipiZIDE 5 MG Tab.ER PO SCH ×2 (08:08→19:43)
[2019-12-21] MEDS: TIMOLOL MALEATE 0.5% EYELF SCH (08:08)
[2019-12-21] MEDS: Multivitamin Tab PO SCH (08:08)
[2019-12-21] MEDS: Cholecalciferol (Vitamin D3) 25 MCG Tab PO SCH (08:10)
[2019-12-21] MEDS: metFORMIN 500 MG Tab PO SCH ×2 (08:10→19:43)
[2019-12-21] MEDS: Hydrochlorothiazide 12.5 MG Cap PO SCH (08:11)
[2019-12-21] MEDS: Losartan 100 MG Tab PO SCH (08:11)
[2019-12-21] MEDS: Insulin Lispro 100 Units/ML 3 ML Vial SUBCUT SCH ×4 (08:15→20:52)
[2019-12-21] MEDS: atorvaSTATin 20 MG Tab PO SCH (19:43)
[2019-12-21] MEDS: Enoxaparin 30 MG/0.3 ML Syringe SUBCUT SCH (19:43)
[2019-12-21] MEDS: LUMIGAN 0.01% EYEBOTH SCH (19:47)
[2019-12-22] MEDS: Acetaminophen 500 MG Tab PO PRN ×2 (04:18→19:50)
[2019-12-22] MEDS: Carbidopa/Levodopa 25-100 MG Tab PO SCH ×2 (07:36→19:46)
[2019-12-22] MEDS: Cholecalciferol (Vitamin D3) 25 MCG Tab PO SCH (07:37)
[2019-12-22] MEDS: metFORMIN 500 MG Tab PO SCH ×2 (07:37→19:46)
[2019-12-22] MEDS: Losartan 100 MG Tab PO SCH (07:37)
[2019-12-22] MEDS: glipiZIDE 5 MG Tab.ER PO SCH ×2 (07:38→19:46)
[2019-12-22] MEDS: Multivitamin Tab PO SCH (07:38)
[2019-12-22] MEDS: Calcium Carbonate/Vitamin D3 1250 MG-200 Unit Tab PO SCH ×2 (07:39→17:58)
[2019-12-22] MEDS: Hydrochlorothiazide 12.5 MG Cap PO SCH (07:40)
[2019-12-22] MEDS: Insulin Lispro 100 Units/ML 3 ML Vial SUBCUT SCH ×4 (09:09→21:00)
[2019-12-22] MEDS: TIMOLOL MALEATE 0.5% EYELF SCH (10:34)
[2019-12-22] MEDS: atorvaSTATin 20 MG Tab PO SCH (19:46)
[2019-12-22] MEDS: Enoxaparin 30 MG/0.3 ML Syringe SUBCUT SCH (19:47)
[2019-12-22] MEDS: LUMIGAN 0.01% EYEBOTH SCH (19:47)
[2019-12-23] MEDS: metFORMIN 500 MG Tab PO SCH ×2 (07:05→19:30)
[2019-12-23] MEDS: glipiZIDE 5 MG Tab.ER PO SCH ×2 (07:05→19:31)
[2019-12-23] MEDS: Losartan 100 MG Tab PO SCH (07:06)
[2019-12-23] MEDS: Calcium Carbonate/Vitamin D3 1250 MG-200 Unit Tab PO SCH ×2 (07:06→18:06)
[2019-12-23] MEDS: Multivitamin Tab PO SCH (07:06)
[2019-12-23] MEDS: Cholecalciferol (Vitamin D3) 25 MCG Tab PO SCH (07:07)
[2019-12-23] MEDS: Hydrochlorothiazide 12.5 MG Cap PO SCH (07:07)
[2019-12-23] MEDS: Carbidopa/Levodopa 25-100 MG Tab PO SCH ×2 (07:07→19:31)
[2019-12-23] MEDS: TIMOLOL MALEATE 0.5% EYELF SCH (07:08)
[2019-12-23] MEDS: Insulin Lispro 100 Units/ML 3 ML Vial SUBCUT SCH ×4 (07:09→20:53)
[2019-12-23] MEDS: Enoxaparin 30 MG/0.3 ML Syringe SUBCUT SCH (19:26)
[2019-12-23] MEDS: atorvaSTATin 20 MG Tab PO SCH (19:26)
[2019-12-23] MEDS: LUMIGAN 0.01% EYEBOTH SCH (19:28)
[2019-12-24] MEDS: Acetaminophen 500 MG Tab PO PRN (03:18)
[2019-12-24] MEDS: Carbidopa/Levodopa 25-100 MG Tab PO SCH ×2 (07:53→19:54)
[2019-12-24] MEDS: Calcium Carbonate/Vitamin D3 1250 MG-200 Unit Tab PO SCH ×2 (07:53→17:23)
[2019-12-24] MEDS: Multivitamin Tab PO SCH (07:53)
[2019-12-24] MEDS: Losartan 100 MG Tab PO SCH (07:54)
[2019-12-24] MEDS: Oxybutynin 5 MG Tab.ER PO SCH (07:58)
[2019-12-24] MEDS: metFORMIN 500 MG Tab PO SCH ×2 (07:58→19:55)
[2019-12-24] MEDS: Cholecalciferol (Vitamin D3) 25 MCG Tab PO SCH (07:58)
[2019-12-24] MEDS: Hydrochlorothiazide 12.5 MG Cap PO SCH (08:00)
[2019-12-24] MEDS: glipiZIDE 5 MG Tab.ER PO SCH ×2 (08:00→19:54)
[2019-12-24] MEDS: TIMOLOL MALEATE 0.5% EYELF SCH (08:04)
[2019-12-24] MEDS: Insulin Lispro 100 Units/ML 3 ML Vial SUBCUT SCH ×4 (08:05→20:08)
[2019-12-24] MEDS: Enoxaparin 30 MG/0.3 ML Syringe SUBCUT SCH (19:55)
[2019-12-24] MEDS: atorvaSTATin 20 MG Tab PO SCH (19:55)
[2019-12-24] MEDS: LUMIGAN 0.01% EYEBOTH SCH (19:56)
[2019-12-25] MEDS: Oxybutynin 5 MG Tab.ER PO SCH (08:20)
[2019-12-25] MEDS: Carbidopa/Levodopa 25-100 MG Tab PO SCH ×2 (08:21→19:51)
[2019-12-25] MEDS: Cholecalciferol (Vitamin D3) 25 MCG Tab PO SCH (08:21)
[2019-12-25] MEDS: metFORMIN 500 MG Tab PO SCH ×2 (08:21→19:53)
[2019-12-25] MEDS: Calcium Carbonate/Vitamin D3 1250 MG-200 Unit Tab PO SCH ×2 (08:21→17:57)
[2019-12-25] MEDS: Multivitamin Tab PO SCH (08:22)
[2019-12-25] MEDS: Hydrochlorothiazide 12.5 MG Cap PO SCH (08:22)
[2019-12-25] MEDS: glipiZIDE 5 MG Tab.ER PO SCH ×2 (08:22→19:53)
[2019-12-25] MEDS: Losartan 100 MG Tab PO SCH (08:22)
[2019-12-25] MEDS: Insulin Lispro 100 Units/ML 3 ML Vial SUBCUT SCH ×4 (08:23→20:41)
[2019-12-25] MEDS: TIMOLOL MALEATE 0.5% EYELF SCH (08:24)
[2019-12-25] MEDS: Acetaminophen 500 MG Tab PO PRN (19:51)
[2019-12-25] MEDS: atorvaSTATin 20 MG Tab PO SCH (19:53)
[2019-12-25] MEDS: Enoxaparin 30 MG/0.3 ML Syringe SUBCUT SCH (19:54)
[2019-12-25] MEDS: LUMIGAN 0.01% EYEBOTH SCH (19:55)
[2019-12-26] MEDS: metFORMIN 500 MG Tab PO SCH ×2 (07:39→19:35)
[2019-12-26] MEDS: Calcium Carbonate/Vitamin D3 1250 MG-200 Unit Tab PO SCH ×2 (07:39→17:33)
[2019-12-26] MEDS: glipiZIDE 5 MG Tab.ER PO SCH ×2 (07:40→19:36)
[2019-12-26] MEDS: Oxybutynin 5 MG Tab.ER PO SCH (07:40)
[2019-12-26] MEDS: Cholecalciferol (Vitamin D3) 25 MCG Tab PO SCH (07:40)
[2019-12-26] MEDS: Carbidopa/Levodopa 25-100 MG Tab PO SCH ×2 (07:40→19:30)
[2019-12-26] MEDS: Hydrochlorothiazide 12.5 MG Cap PO SCH (07:40)
[2019-12-26] MEDS: Losartan 100 MG Tab PO SCH (07:41)
[2019-12-26] MEDS: Multivitamin Tab PO SCH (07:41)
[2019-12-26] MEDS: TIMOLOL MALEATE 0.5% EYELF SCH (07:41)
[2019-12-26] MEDS: Insulin Lispro 100 Units/ML 3 ML Vial SUBCUT SCH ×4 (07:42→20:17)
[2019-12-26] MEDS: Enoxaparin 30 MG/0.3 ML Syringe SUBCUT SCH (19:28)
[2019-12-26] MEDS: atorvaSTATin 20 MG Tab PO SCH (19:30)
[2019-12-26] MEDS: LUMIGAN 0.01% EYEBOTH SCH (19:31)
[2019-12-26] MEDS: Acetaminophen 500 MG Tab PO PRN (23:03)
[2019-12-27] MEDS: Calcium Carbonate/Vitamin D3 1250 MG-200 Unit Tab PO SCH ×2 (07:38→17:13)
[2019-12-27] MEDS: glipiZIDE 5 MG Tab.ER PO SCH ×2 (07:38→19:59)
[2019-12-27] MEDS: Oxybutynin 5 MG Tab.ER PO SCH (07:38)
[2019-12-27] MEDS: Losartan 100 MG Tab PO SCH (07:38)
[2019-12-27] MEDS: Multivitamin Tab PO SCH (07:38)
[2019-12-27] MEDS: Carbidopa/Levodopa 25-100 MG Tab PO SCH ×2 (07:38→19:59)
[2019-12-27] MEDS: metFORMIN 500 MG Tab PO SCH ×2 (07:38→19:58)
[2019-12-27] MEDS: Hydrochlorothiazide 12.5 MG Cap PO SCH (07:38)
[2019-12-27] MEDS: Cholecalciferol (Vitamin D3) 25 MCG Tab PO SCH (07:38)
[2019-12-27] MEDS: TIMOLOL MALEATE 0.5% EYELF SCH (07:40)
[2019-12-27] MEDS: Insulin Lispro 100 Units/ML 3 ML Vial SUBCUT SCH ×4 (08:37→20:00)
[2019-12-27] MEDS: atorvaSTATin 20 MG Tab PO SCH (19:53)
[2019-12-27] MEDS: Enoxaparin 30 MG/0.3 ML Syringe SUBCUT SCH (19:54)
[2019-12-27] MEDS: LUMIGAN 0.01% EYEBOTH SCH (19:55)
[2019-12-28] MEDS: metFORMIN 500 MG Tab PO SCH ×2 (07:36→19:48)
[2019-12-28] MEDS: Losartan 100 MG Tab PO SCH (07:36)
[2019-12-28] MEDS: Hydrochlorothiazide 12.5 MG Cap PO SCH (07:36)
[2019-12-28] MEDS: glipiZIDE 5 MG Tab.ER PO SCH ×2 (07:37→19:48)
[2019-12-28] MEDS: Multivitamin Tab PO SCH (07:37)
[2019-12-28] MEDS: Oxybutynin 5 MG Tab.ER PO SCH (07:37)
[2019-12-28] MEDS: Carbidopa/Levodopa 25-100 MG Tab PO SCH ×2 (07:37→19:45)
[2019-12-28] MEDS: Calcium Carbonate/Vitamin D3 1250 MG-200 Unit Tab PO SCH ×2 (07:37→17:17)
[2019-12-28] MEDS: Cholecalciferol (Vitamin D3) 25 MCG Tab PO SCH (07:37)
[2019-12-28] MEDS: TIMOLOL MALEATE 0.5% EYELF SCH (07:38)
[2019-12-28] MEDS: Insulin Lispro 100 Units/ML 3 ML Vial SUBCUT SCH ×4 (07:39→21:31)
[2019-12-28] MEDS: Enoxaparin 30 MG/0.3 ML Syringe SUBCUT SCH (19:44)
[2019-12-28] MEDS: LUMIGAN 0.01% EYEBOTH SCH (19:45)
[2019-12-28] MEDS: atorvaSTATin 20 MG Tab PO SCH (19:46)
[2019-12-29] MEDS: metFORMIN 500 MG Tab PO SCH ×2 (07:32→19:45)
[2019-12-29] MEDS: Oxybutynin 5 MG Tab.ER PO SCH (07:32)
[2019-12-29] MEDS: Losartan 100 MG Tab PO SCH (07:32)
[2019-12-29] MEDS: Calcium Carbonate/Vitamin D3 1250 MG-200 Unit Tab PO SCH ×2 (07:33→17:04)
[2019-12-29] MEDS: Cholecalciferol (Vitamin D3) 25 MCG Tab PO SCH (07:33)
[2019-12-29] MEDS: Multivitamin Tab PO SCH (07:33)
[2019-12-29] MEDS: glipiZIDE 5 MG Tab.ER PO SCH ×2 (07:33→19:45)
[2019-12-29] MEDS: Hydrochlorothiazide 12.5 MG Cap PO SCH (07:33)
[2019-12-29] MEDS: Carbidopa/Levodopa 25-100 MG Tab PO SCH ×2 (07:34→19:45)
[2019-12-29] MEDS: Insulin Lispro 100 Units/ML 3 ML Vial SUBCUT SCH ×4 (08:12→20:15)
[2019-12-29] MEDS: TIMOLOL MALEATE 0.5% EYELF SCH (11:40)
[2019-12-29] MEDS: atorvaSTATin 20 MG Tab PO SCH (19:45)
[2019-12-29] MEDS: Enoxaparin 30 MG/0.3 ML Syringe SUBCUT SCH (19:46)
[2019-12-29] MEDS: LUMIGAN 0.01% EYEBOTH SCH (19:47)
[2019-12-30] MEDS: Cholecalciferol (Vitamin D3) 25 MCG Tab PO SCH (07:01)
[2019-12-30] MEDS: metFORMIN 500 MG Tab PO SCH ×2 (07:01→20:08)
[2019-12-30] MEDS: Carbidopa/Levodopa 25-100 MG Tab PO SCH ×2 (07:01→20:08)
[2019-12-30] MEDS: Oxybutynin 5 MG Tab.ER PO SCH (07:01)
[2019-12-30] MEDS: Multivitamin Tab PO SCH (07:02)
[2019-12-30] MEDS: Calcium Carbonate/Vitamin D3 1250 MG-200 Unit Tab PO SCH ×2 (07:02→17:34)
[2019-12-30] MEDS: glipiZIDE 5 MG Tab.ER PO SCH ×2 (07:02→20:08)
[2019-12-30] MEDS: Hydrochlorothiazide 12.5 MG Cap PO SCH (07:02)
[2019-12-30] MEDS: Losartan 100 MG Tab PO SCH (07:02)
[2019-12-30] MEDS: TIMOLOL MALEATE 0.5% EYELF SCH (07:20)
[2019-12-30] MEDS: Insulin Lispro 100 Units/ML 3 ML Vial SUBCUT SCH ×4 (07:20→22:22)
[2019-12-30] MEDS: atorvaSTATin 20 MG Tab PO SCH (20:07)
[2019-12-30] MEDS: Enoxaparin 30 MG/0.3 ML Syringe SUBCUT SCH (20:09)
[2019-12-30] MEDS: LUMIGAN 0.01% EYEBOTH SCH (20:10)
[2019-12-31] MEDS: glipiZIDE 5 MG Tab.ER PO SCH ×2 (07:50→19:54)
[2019-12-31] MEDS: Calcium Carbonate/Vitamin D3 1250 MG-200 Unit Tab PO SCH ×2 (07:50→17:45)
[2019-12-31] MEDS: Carbidopa/Levodopa 25-100 MG Tab PO SCH ×2 (07:50→19:54)
[2019-12-31] MEDS: Losartan 100 MG Tab PO SCH (07:52)
[2019-12-31] MEDS: Multivitamin Tab PO SCH (07:52)
[2019-12-31] MEDS: metFORMIN 500 MG Tab PO SCH ×2 (07:53→19:51)
[2019-12-31] MEDS: Oxybutynin 5 MG Tab.ER PO SCH (07:53)
[2019-12-31] MEDS: Hydrochlorothiazide 12.5 MG Cap PO SCH (07:53)
[2019-12-31] MEDS: Cholecalciferol (Vitamin D3) 25 MCG Tab PO SCH (07:53)
[2019-12-31] MEDS: TIMOLOL MALEATE 0.5% EYELF SCH (07:54)
[2019-12-31] MEDS: Insulin Lispro 100 Units/ML 3 ML Vial SUBCUT SCH ×4 (07:55→20:04)
[2019-12-31] MEDS: atorvaSTATin 20 MG Tab PO SCH (19:51)
[2019-12-31] MEDS: Enoxaparin 30 MG/0.3 ML Syringe SUBCUT SCH (19:54)
[2019-12-31] MEDS: LUMIGAN 0.01% EYEBOTH SCH (19:57)
[2019-12-31] MEDS: Acetaminophen 500 MG Tab PO PRN (21:19)
[2020-01-01] MEDS: Losartan 100 MG Tab PO SCH (07:36)
[2020-01-01] MEDS: Carbidopa/Levodopa 25-100 MG Tab PO SCH ×2 (07:36→20:09)
[2020-01-01] MEDS: Calcium Carbonate/Vitamin D3 1250 MG-200 Unit Tab PO SCH ×2 (07:36→17:13)
[2020-01-01] MEDS: glipiZIDE 5 MG Tab.ER PO SCH ×2 (07:37→21:51)
[2020-01-01] MEDS: Oxybutynin 5 MG Tab.ER PO SCH (07:37)
[2020-01-01] MEDS: metFORMIN 500 MG Tab PO SCH ×2 (07:37→21:50)
[2020-01-01] MEDS: Multivitamin Tab PO SCH (07:37)
[2020-01-01] MEDS: Hydrochlorothiazide 12.5 MG Cap PO SCH (07:37)
[2020-01-01] MEDS: Insulin Lispro 100 Units/ML 3 ML Vial SUBCUT SCH ×4 (07:38→20:00)
[2020-01-01] MEDS: TIMOLOL MALEATE 0.5% EYELF SCH (07:39)
[2020-01-01] MEDS: Cholecalciferol (Vitamin D3) 25 MCG Tab PO SCH (17:13)
[2020-01-01] MEDS: atorvaSTATin 20 MG Tab PO SCH (20:02)
[2020-01-01] MEDS: Enoxaparin 30 MG/0.3 ML Syringe SUBCUT SCH (20:02)
[2020-01-01] MEDS: LUMIGAN 0.01% EYEBOTH SCH (20:03)
--- NOTE | 2020-01-01 23:03 | PCM.PN ---
- General Info Date of Service: 01/01/20 Admission Dx/Problem (Free Text): Left pelvic fracture Subjective Update: Alida is a pleasant 89 yo female who has been in swing bed after sustaining a fall at home and fracturing her left pelvis. She continues with physical therapy and feels she is improving everyday. Currently denies any pain and states the only pain she has is when she is ambulating. Admits the pain with ambulation is improving though. Feels physical therapy is helping. Denies any setbacks. She admits she is concerned that she will have to go home as she can not care for herself at this time. Questions when a assisted bed will be available. Functional Status: Reports: Pain Controlled - Review of Systems General: Reports: No Symptoms HEENT: Reports: No Symptoms Pulmonary: Reports: No Symptoms Cardiovascular: Reports: No Symptoms Gastrointestinal: Reports: No Symptoms Genitourinary: Reports: No Symptoms Musculoskeletal: Reports: Other (left groin pain with ambulation) Skin: Reports: No Symptoms Neurological: Reports: No Symptoms Psychiatric: Reports: No Symptoms - Patient Data Vitals - Most Recent: Last Vital Signs Temp 98.2 F 01/01/20 20:00 Pulse 84 01/01/20 20:00 Resp 18 01/01/20 20:00 BP 117/57 L 01/01/20 20:00 Pulse Ox 94 L 01/01/20 20:00 Weight - Most Recent: 173 lb 14.4 oz Lab Results Last 24 Hours: Laboratory Results - last 24 hr 01/01/20 01/01/20 01/01/20 Range/Units 07:33 11:56 17:11 POC Glucose 44 L* 143 H 173 H (75-105) mg/dl 01/01/20 Range/Units 19:57 POC Glucose 128 H (75-105) mg/dl Med Orders - Current: Current Medications Acetaminophen (Tylenol Extra Strength) 1,000 mg PO Q6H PRN PRN Reason: Pain (Mild 1-3)/fever Last Admin: 12/31/19 21:19 Dose: 1,000 mg Documented by: Hydrocodone Bitart/Acetaminophen ([place] 325-5 Mg) 1 tab PO Q4H PRN PRN Reason: Pain (moderate 4-6) Atorvastatin Calcium (Lipitor) 40 mg PO BEDTIME [facility] Last Admin: 01/01/20 20:02 Dose: 40 mg Documented by: Calcium Carbonate (Calcium Carbonate/Vitamin D 1250 Mg-200 Unit) 1 tab PO BIDME [facility] Last Admin: 01/01/20 17:13 Dose: 1 tab Documented by: Carbidopa/Levodopa (Sinemet 25-100 Mg) 1.5 tab PO BID [facility] Last Admin: 01/01/20 20:09 Dose: 1.5 tab Documented by: Cholecalciferol (Vitamin D3) 50 mcg PO DAILY [facility] Last Admin: 01/01/20 17:13 Dose: Not Given Documented by: Dextrose/Water (Dextrose 50% In Water) 50 ml IV ASDIRECTED PRN PRN Reason: Hypoglycemia Docusate Sodium (Colace) 100 mg PO BID PRN PRN Reason: Constipation Enoxaparin Sodium (Lovenox) 30 mg SUBCUT Q24H [facility] Last Admin: 01/01/20 20:02 Dose: 30 mg Documented by: Glipizide (Glucotrol Xl) 10 mg PO BID [facility] Last Admin: 01/01/20 21:51 Dose: Not Given Documented by: Glucagon (Glucagen) 1 mg IM ASDIRECTED PRN PRN Reason: Hypoglycemia Hydrochlorothiazide (Hydrochlorothiazide) 12.5 mg PO DAILY [facility] Last Admin: 01/01/20 07:37 Dose: 12.5 mg Documented by: Insulin Human Lispro (Humalog) 0 unit SUBCUT WITHMEALSANDBED [facility]; Protocol Last Admin: 01/01/20 20:00 Dose: Not Given Documented by: Losartan Potassium (Cozaar) 100 mg PO DAILY [facility] Last Admin: 01/01/20 07:36 Dose: 100 mg Documented by: Metformin HCl (Glucophage) 1,000 mg PO BID [facility] Last Admin: 01/01/20 21:50 Dose: Not Given Documented by: Multivitamins/Minerals/Vitamin C (Tab-A-Stephanie) 1 tab PO DAILY [facility] Last Admin: 01/01/20 07:37 Dose: 1 tab Documented by: Timolol Maleate 0.5% (Ophth Own Med) 0 each EYELF DAILY [facility] Last Admin: 01/01/20 07:39 Dose: 1 each Documented by: Lumigan 0.01% Ophth (Own Med) 0 each EYEBOTH BEDTIME [facility] Last Admin: 01/01/20 20:03 Dose: 1 each Documented by: Ondansetron HCl (Zofran Odt) 4 mg PO Q6H PRN PRN Reason: Nausea/Vomiting Oxybutynin Chloride (Oxybutynin Er) 5 mg PO DAILY [facility] Last Admin: 01/01/20 07:37 Dose: 5 mg Documented by: Polyethylene Glycol (Miralax) 17 gm PO DAILY PRN PRN Reason: Constipation Sodium Chloride (Saline Flush) 10 ml FLUSH ASDIRECTED PRN PRN Reason: Keep Vein Open Discontinued Medications Dextrose/Water (Dextrose 50% In Water) 50 ml IV ASDIRECTED PRN PRN Reason: Hypoglycemia Glucagon (Glucagen) 1 mg IM ASDIRECTED PRN PRN Reason: Hypoglycemia Sodium Chloride (Saline Flush) 10 ml FLUSH ASDIRECTED PRN PRN Reason: Keep Vein Open - Exam Quality Assessment: No: Supplemental Oxygen, Urine Catheter, Skin Breakdown General: Alert, Oriented, Cooperative, No Acute Distress Neck: Supple Lungs: Clear to Auscultation, Normal Respiratory Effort Cardiovascular: Regular Rate, Regular Rhythm GI/Abdominal Exam: Normal Bowel Sounds, Soft, Non-Tender, No Distention Extremities: No Pedal Edema (jarett hose ), Limited Range of Motion. No: Leg Pain Peripheral Pulses: 1+: Dorsalis Pedis (L), Dorsalis Pedis (R) Skin: Warm, Dry, Intact Neurological: No New Focal Deficit, Other (chronic tremor left upper extremity) Psy/Mental Status: Alert, Normal Affect, Normal Mood Sepsis Event Note - Evaluation Sepsis Screening Result: No Definite Risk - Focused Exam Vital Signs: Vital Signs Temp Pulse Resp BP Pulse Ox 01/01/20 20:00 98.2 F 84 18 117/57 L 94 L - Problem List & Annotations (1) Parkinson disease SNOMED Code(s): 31674576 Code(s): G20 - PARKINSON'S DISEASE Status: Chronic Current Visit: No (2) Type 2 diabetes mellitus SNOMED Code(s): 72121731 Code(s): E11.9 - TYPE 2 DIABETES MELLITUS WITHOUT COMPLICATIONS Status: Chronic Current Visit: No Qualifiers: Diabetes mellitus tank terminal gauger insulin use: without tank terminal gauger use Diabetes mellitus complication status: without complication Qualified Code(s): E11.9 - Type 2 diabetes mellitus without complications - Problem List Review Problem List Initiated/Reviewed/Updated: Yes - Plan Plan:: Patient is due for 14 day recertification. Alida continues to show improvement with ambulation with pelvic fracture. Physical therapy has continued to work with patient which has showed daily improvement. Patient continues swing bed status with physical therapy and awaiting assisted placement. Patient verbalized understanding. Denies any concerns at this time.
[2020-01-02] MEDS: Carbidopa/Levodopa 25-100 MG Tab PO SCH ×2 (07:36→20:23)
[2020-01-02] MEDS: Hydrochlorothiazide 12.5 MG Cap PO SCH (07:37)
[2020-01-02] MEDS: Losartan 100 MG Tab PO SCH (07:37)
[2020-01-02] MEDS: Cholecalciferol (Vitamin D3) 25 MCG Tab PO SCH (07:37)
[2020-01-02] MEDS: metFORMIN 500 MG Tab PO SCH ×2 (07:37→16:55)
[2020-01-02] MEDS: TIMOLOL MALEATE 0.5% EYELF SCH (07:38)
[2020-01-02] MEDS: Oxybutynin 5 MG Tab.ER PO SCH (07:38)
[2020-01-02] MEDS: Calcium Carbonate/Vitamin D3 1250 MG-200 Unit Tab PO SCH ×2 (07:38→16:55)
[2020-01-02] MEDS: Multivitamin Tab PO SCH (07:38)
[2020-01-02] MEDS: Insulin Lispro 100 Units/ML 3 ML Vial SUBCUT SCH ×4 (07:39→21:28)
[2020-01-02] MEDS: Acetaminophen 500 MG Tab PO PRN ×2 (07:40→14:52)
[2020-01-02] MEDS: Enoxaparin 30 MG/0.3 ML Syringe SUBCUT SCH (20:23)
[2020-01-02] MEDS: atorvaSTATin 20 MG Tab PO SCH (20:24)
[2020-01-02] MEDS: LUMIGAN 0.01% EYEBOTH SCH (20:24)
[2020-01-03] MEDS: Acetaminophen 500 MG Tab PO PRN (07:38)
[2020-01-03] MEDS: Multivitamin Tab PO SCH (07:39)
[2020-01-03] MEDS: Calcium Carbonate/Vitamin D3 1250 MG-200 Unit Tab PO SCH ×2 (07:39→17:08)
[2020-01-03] MEDS: Losartan 100 MG Tab PO SCH (07:39)
[2020-01-03] MEDS: Cholecalciferol (Vitamin D3) 25 MCG Tab PO SCH (07:40)
[2020-01-03] MEDS: Hydrochlorothiazide 12.5 MG Cap PO SCH (07:40)
[2020-01-03] MEDS: Carbidopa/Levodopa 25-100 MG Tab PO SCH ×2 (07:40→19:35)
[2020-01-03] MEDS: metFORMIN 500 MG Tab PO SCH ×2 (07:41→17:17)
[2020-01-03] MEDS: Oxybutynin 5 MG Tab.ER PO SCH (07:41)
[2020-01-03] MEDS: Insulin Lispro 100 Units/ML 3 ML Vial SUBCUT SCH ×4 (07:41→21:01)
[2020-01-03] MEDS: TIMOLOL MALEATE 0.5% EYELF SCH (07:42)
[2020-01-03] MEDS: Enoxaparin 30 MG/0.3 ML Syringe SUBCUT SCH (19:35)
[2020-01-03] MEDS: atorvaSTATin 20 MG Tab PO SCH (19:35)
[2020-01-03] MEDS: LUMIGAN 0.01% EYEBOTH SCH (19:36)
[2020-01-04] MEDS: TIMOLOL MALEATE 0.5% EYELF SCH (07:37)
[2020-01-04] MEDS: Insulin Lispro 100 Units/ML 3 ML Vial SUBCUT SCH ×4 (07:37→20:26)
[2020-01-04] MEDS: Carbidopa/Levodopa 25-100 MG Tab PO SCH ×2 (07:38→19:25)
[2020-01-04] MEDS: Hydrochlorothiazide 12.5 MG Cap PO SCH (07:39)
[2020-01-04] MEDS: Multivitamin Tab PO SCH (07:39)
[2020-01-04] MEDS: Losartan 100 MG Tab PO SCH (07:39)
[2020-01-04] MEDS: Oxybutynin 5 MG Tab.ER PO SCH (07:39)
[2020-01-04] MEDS: Cholecalciferol (Vitamin D3) 25 MCG Tab PO SCH (07:40)
[2020-01-04] MEDS: Calcium Carbonate/Vitamin D3 1250 MG-200 Unit Tab PO SCH ×2 (07:40→17:12)
[2020-01-04] MEDS: metFORMIN 500 MG Tab PO SCH ×2 (07:45→17:11)
[2020-01-04] MEDS: atorvaSTATin 20 MG Tab PO SCH (19:24)
[2020-01-04] MEDS: Enoxaparin 30 MG/0.3 ML Syringe SUBCUT SCH (19:25)
[2020-01-04] MEDS: LUMIGAN 0.01% EYEBOTH SCH (19:26)
[2020-01-05] MEDS: Insulin Lispro 100 Units/ML 3 ML Vial SUBCUT SCH ×4 (07:30→20:23)
[2020-01-05] MEDS: Oxybutynin 5 MG Tab.ER PO SCH (07:30)
[2020-01-05] MEDS: Carbidopa/Levodopa 25-100 MG Tab PO SCH ×2 (07:31→19:44)
[2020-01-05] MEDS: Multivitamin Tab PO SCH (07:32)
[2020-01-05] MEDS: Hydrochlorothiazide 12.5 MG Cap PO SCH (07:32)
[2020-01-05] MEDS: Cholecalciferol (Vitamin D3) 25 MCG Tab PO SCH (07:32)
[2020-01-05] MEDS: Losartan 100 MG Tab PO SCH (07:33)
[2020-01-05] MEDS: Calcium Carbonate/Vitamin D3 1250 MG-200 Unit Tab PO SCH ×2 (07:36→16:39)
[2020-01-05] MEDS: metFORMIN 500 MG Tab PO SCH ×2 (07:36→16:39)
[2020-01-05] MEDS: Timolol Maleate 0.5% Ophth Soln 5 ML Bottle EYELF SCH (09:40)
[2020-01-05] MEDS: TIMOLOL MALEATE 0.5% EYELF SCH (10:40)
[2020-01-05] MEDS: Enoxaparin 30 MG/0.3 ML Syringe SUBCUT SCH (19:45)
[2020-01-05] MEDS: atorvaSTATin 20 MG Tab PO SCH (19:45)
[2020-01-05] MEDS: LUMIGAN 0.01% EYEBOTH SCH (19:48)
[2020-01-05] MEDS: Acetaminophen 500 MG Tab PO PRN (21:02)
[2020-01-06] MEDS: Calcium Carbonate/Vitamin D3 1250 MG-200 Unit Tab PO SCH ×2 (08:32→16:57)
[2020-01-06] MEDS: Cholecalciferol (Vitamin D3) 25 MCG Tab PO SCH (08:32)
[2020-01-06] MEDS: Carbidopa/Levodopa 25-100 MG Tab PO SCH ×2 (08:32→19:13)
[2020-01-06] MEDS: Losartan 100 MG Tab PO SCH (08:32)
[2020-01-06] MEDS: Multivitamin Tab PO SCH (08:32)
[2020-01-06] MEDS: Oxybutynin 5 MG Tab.ER PO SCH (08:32)
[2020-01-06] MEDS: Hydrochlorothiazide 12.5 MG Cap PO SCH (08:32)
[2020-01-06] MEDS: Insulin Lispro 100 Units/ML 3 ML Vial SUBCUT SCH ×4 (08:33→20:16)
[2020-01-06] MEDS: metFORMIN 500 MG Tab PO SCH ×2 (08:38→16:58)
[2020-01-06] MEDS: Timolol Maleate 0.5% Ophth Soln 5 ML Bottle EYELF SCH (08:40)
[2020-01-06] MEDS: atorvaSTATin 20 MG Tab PO SCH (19:12)
[2020-01-06] MEDS: Enoxaparin 30 MG/0.3 ML Syringe SUBCUT SCH (19:13)
[2020-01-06] MEDS: LUMIGAN 0.01% EYEBOTH SCH (19:13)
[2020-01-07] MEDS: Cholecalciferol (Vitamin D3) 25 MCG Tab PO SCH (07:42)
[2020-01-07] MEDS: Multivitamin Tab PO SCH (07:42)
[2020-01-07] MEDS: Calcium Carbonate/Vitamin D3 1250 MG-200 Unit Tab PO SCH ×2 (07:42→17:45)
[2020-01-07] MEDS: Hydrochlorothiazide 12.5 MG Cap PO SCH (07:42)
[2020-01-07] MEDS: Timolol Maleate 0.5% Ophth Soln 5 ML Bottle EYELF SCH (07:42)
[2020-01-07] MEDS: Carbidopa/Levodopa 25-100 MG Tab PO SCH ×2 (07:42→19:45)
[2020-01-07] MEDS: Losartan 100 MG Tab PO SCH (07:42)
[2020-01-07] MEDS: Oxybutynin 5 MG Tab.ER PO SCH (07:42)
[2020-01-07] MEDS: metFORMIN 500 MG Tab PO SCH ×2 (07:46→17:45)
[2020-01-07] MEDS: Insulin Lispro 100 Units/ML 3 ML Vial SUBCUT SCH ×4 (08:09→21:26)
[2020-01-07] MEDS: atorvaSTATin 20 MG Tab PO SCH (19:45)
[2020-01-07] MEDS: Enoxaparin 30 MG/0.3 ML Syringe SUBCUT SCH (19:46)
[2020-01-07] MEDS: LUMIGAN 0.01% EYEBOTH SCH (19:49)
[2020-01-08] MEDS: Carbidopa/Levodopa 25-100 MG Tab PO SCH ×2 (07:39→20:12)
[2020-01-08] MEDS: Multivitamin Tab PO SCH (07:40)
[2020-01-08] MEDS: Oxybutynin 5 MG Tab.ER PO SCH (07:40)
[2020-01-08] MEDS: Calcium Carbonate/Vitamin D3 1250 MG-200 Unit Tab PO SCH ×2 (07:40→17:37)
[2020-01-08] MEDS: Losartan 100 MG Tab PO SCH (07:41)
[2020-01-08] MEDS: Hydrochlorothiazide 12.5 MG Cap PO SCH (07:41)
[2020-01-08] MEDS: metFORMIN 500 MG Tab PO SCH ×2 (07:41→17:37)
[2020-01-08] MEDS: Cholecalciferol (Vitamin D3) 25 MCG Tab PO SCH (07:41)
[2020-01-08] MEDS: Timolol Maleate 0.5% Ophth Soln 5 ML Bottle EYELF SCH (07:41)
[2020-01-08] MEDS: Insulin Lispro 100 Units/ML 3 ML Vial SUBCUT SCH ×4 (10:31→20:13)
[2020-01-08] MEDS: atorvaSTATin 20 MG Tab PO SCH (20:12)
[2020-01-08] MEDS: Enoxaparin 30 MG/0.3 ML Syringe SUBCUT SCH (20:12)
[2020-01-08] MEDS: LUMIGAN 0.01% EYEBOTH SCH (20:13)
[2020-01-09] MEDS: Insulin Lispro 100 Units/ML 3 ML Vial SUBCUT SCH ×4 (07:35→20:13)
[2020-01-09] MEDS: Hydrochlorothiazide 12.5 MG Cap PO SCH (07:35)
[2020-01-09] MEDS: Calcium Carbonate/Vitamin D3 1250 MG-200 Unit Tab PO SCH ×2 (07:35→17:02)
[2020-01-09] MEDS: Oxybutynin 5 MG Tab.ER PO SCH (07:35)
[2020-01-09] MEDS: Losartan 100 MG Tab PO SCH (07:35)
[2020-01-09] MEDS: Multivitamin Tab PO SCH (07:35)
[2020-01-09] MEDS: Cholecalciferol (Vitamin D3) 25 MCG Tab PO SCH (07:35)
[2020-01-09] MEDS: Carbidopa/Levodopa 25-100 MG Tab PO SCH ×2 (07:36→20:15)
[2020-01-09] MEDS: metFORMIN 500 MG Tab PO SCH ×2 (07:40→17:02)
[2020-01-09] MEDS: Timolol Maleate 0.5% Ophth Soln 5 ML Bottle EYELF SCH (07:41)
[2020-01-09] MEDS: Enoxaparin 30 MG/0.3 ML Syringe SUBCUT SCH (20:14)
[2020-01-09] MEDS: atorvaSTATin 20 MG Tab PO SCH (20:15)
[2020-01-09] MEDS: LUMIGAN 0.01% EYEBOTH SCH (20:16)
[2020-01-10] MEDS: Oxybutynin 5 MG Tab.ER PO SCH (07:49)
[2020-01-10] MEDS: Insulin Lispro 100 Units/ML 3 ML Vial SUBCUT SCH ×4 (07:49→20:23)
[2020-01-10] MEDS: metFORMIN 500 MG Tab PO SCH ×2 (07:49→18:46)
[2020-01-10] MEDS: Carbidopa/Levodopa 25-100 MG Tab PO SCH ×2 (07:49→19:41)
[2020-01-10] MEDS: Calcium Carbonate/Vitamin D3 1250 MG-200 Unit Tab PO SCH ×2 (07:50→18:46)
[2020-01-10] MEDS: Losartan 100 MG Tab PO SCH (07:50)
[2020-01-10] MEDS: Multivitamin Tab PO SCH (07:50)
[2020-01-10] MEDS: Hydrochlorothiazide 12.5 MG Cap PO SCH (07:51)
[2020-01-10] MEDS: Timolol Maleate 0.5% Ophth Soln 5 ML Bottle EYELF SCH (07:51)
[2020-01-10] MEDS: Cholecalciferol (Vitamin D3) 25 MCG Tab PO SCH (07:51)
[2020-01-10] MEDS: atorvaSTATin 20 MG Tab PO SCH (19:39)
[2020-01-10] MEDS: LUMIGAN 0.01% EYEBOTH SCH (19:42)
[2020-01-10] MEDS: Enoxaparin 30 MG/0.3 ML Syringe SUBCUT SCH (19:42)
[2020-01-11] MEDS: Carbidopa/Levodopa 25-100 MG Tab PO SCH ×2 (08:06→20:24)
[2020-01-11] MEDS: metFORMIN 500 MG Tab PO SCH ×2 (08:07→16:42)
[2020-01-11] MEDS: Multivitamin Tab PO SCH (08:07)
[2020-01-11] MEDS: Cholecalciferol (Vitamin D3) 25 MCG Tab PO SCH (08:07)
[2020-01-11] MEDS: Losartan 100 MG Tab PO SCH (08:08)
[2020-01-11] MEDS: Hydrochlorothiazide 12.5 MG Cap PO SCH (08:08)
[2020-01-11] MEDS: Oxybutynin 5 MG Tab.ER PO SCH (08:08)
[2020-01-11] MEDS: Calcium Carbonate/Vitamin D3 1250 MG-200 Unit Tab PO SCH ×2 (08:08→16:42)
[2020-01-11] MEDS: Insulin Lispro 100 Units/ML 3 ML Vial SUBCUT SCH ×4 (08:09→20:37)
[2020-01-11] MEDS: Timolol Maleate 0.5% Ophth Soln 5 ML Bottle EYELF SCH (08:09)
--- NOTE | 2020-01-11 10:41 | PCM.PN ---
- General Info Date of Service: 01/11/20 Functional Status: Reports: Pain Controlled, Tolerating Diet, Ambulating, Urinating, New Symptoms (cough) - Review of Systems General: Reports: No Symptoms HEENT: Reports: No Symptoms Pulmonary: Reports: Cough. Denies: Shortness of Breath, Sputum Cardiovascular: Reports: No Symptoms Gastrointestinal: Reports: No Symptoms Genitourinary: Reports: No Symptoms Musculoskeletal: Reports: No Symptoms Skin: Reports: No Symptoms Neurological: Reports: No Symptoms Psychiatric: Reports: No Symptoms - Patient Data Vitals - Most Recent: Last Vital Signs Temp 99.3 F 01/11/20 08:00 Pulse 80 01/11/20 08:00 Resp 18 01/11/20 08:00 BP 125/53 L 01/11/20 08:08 Pulse Ox 94 L 01/11/20 08:00 Weight - Most Recent: 171 lb 8 oz Lab Results Last 24 Hours: Laboratory Results - last 24 hr 01/08/20 Range/Units 10:30 SARS-CoV-2 (PCR) Detected H (NOT DETECT) Med Orders - Current: Current Medications Acetaminophen (Tylenol Extra Strength) 1,000 mg PO Q6H PRN PRN Reason: Pain (Mild 1-3)/fever Last Admin: 01/05/20 21:02 Dose: 1,000 mg Documented by: Hydrocodone Bitart/Acetaminophen ([place] 325-5 Mg) 1 tab PO Q4H PRN PRN Reason: Pain (moderate 4-6) Atorvastatin Calcium (Lipitor) 40 mg PO BEDTIME [facility] Last Admin: 01/10/20 19:39 Dose: 40 mg Documented by: Calcium Carbonate (Calcium Carbonate/Vitamin D 1250 Mg-200 Unit) 1 tab PO BIDMEALS [facility] Last Admin: 01/11/20 08:08 Dose: 1 tab Documented by: Carbidopa/Levodopa (Sinemet 25-100 Mg) 1.5 tab PO BID [facility] Last Admin: 01/11/20 08:06 Dose: 1.5 tab Documented by: Cholecalciferol (Vitamin D3) 50 mcg PO DAILY [facility] Last Admin: 01/11/20 08:07 Dose: 50 mcg Documented by: Dextrose/Water (Dextrose 50% In Water) 50 ml IV ASDIRECTED PRN PRN Reason: Hypoglycemia Docusate Sodium (Colace) 100 mg PO BID PRN PRN Reason: Constipation Enoxaparin Sodium (Lovenox) 30 mg SUBCUT Q24H [facility] Last Admin: 01/10/20 19:42 Dose: 30 mg Documented by: Glucagon (Glucagen) 1 mg IM ASDIRECTED PRN PRN Reason: Hypoglycemia Hydrochlorothiazide (Hydrochlorothiazide) 12.5 mg PO DAILY [facility] Last Admin: 01/11/20 08:08 Dose: 12.5 mg Documented by: Insulin Human Lispro (Humalog) 0 unit SUBCUT WITHMEALSANDBED [facility]; Protocol Last Admin: 01/11/20 08:09 Dose: 2 units Documented by: Losartan Potassium (Cozaar) 100 mg PO DAILY [facility] Last Admin: 01/11/20 08:08 Dose: 100 mg Documented by: Metformin HCl (Glucophage) 1,000 mg PO 0800,1730 [facility] Last Admin: 01/11/20 08:07 Dose: 1,000 mg Documented by: Multivitamins/Minerals/Vitamin C (Tab-A-Stephanie) 1 tab PO DAILY [facility] Last Admin: 01/11/20 08:07 Dose: 1 tab Documented by: Lumigan 0.01% Ophth (Own Med) 0 each EYEBOTH BEDTIME [facility] Last Admin: 01/10/20 19:42 Dose: 1 each Documented by: Ondansetron HCl (Zofran Odt) 4 mg PO Q6H PRN PRN Reason: Nausea/Vomiting Oxybutynin Chloride (Oxybutynin Er) 5 mg PO DAILY [facility] Last Admin: 01/11/20 08:08 Dose: 5 mg Documented by: Polyethylene Glycol (Miralax) 17 gm PO DAILY PRN PRN Reason: Constipation Sodium Chloride (Saline Flush) 10 ml FLUSH ASDIRECTED PRN PRN Reason: Keep Vein Open Timolol Maleate (Timoptic 0.5% Ophth Soln) 0 ml EYELF DAILY [facility] Last Admin: 01/11/20 08:09 Dose: 1 drop Documented by: Discontinued Medications Dextrose/Water (Dextrose 50% In Water) 50 ml IV ASDIRECTED PRN PRN Reason: Hypoglycemia Glipizide (Glucotrol Xl) 10 mg PO BID [facility] Last Admin: 01/01/20 21:51 Dose: Not Given Documented by: Glucagon (Glucagen) 1 mg IM ASDIRECTED PRN PRN Reason: Hypoglycemia Metformin HCl (Glucophage) 1,000 mg PO BID [facility] Last Admin: 01/01/20 21:50 Dose: Not Given Documented by: Timolol Maleate 0.5% (Ophth Own Med) 0 each EYELF DAILY [facility] Last Admin: 01/05/20 10:40 Dose: Not Given Documented by: Sodium Chloride (Saline Flush) 10 ml FLUSH ASDIRECTED PRN PRN Reason: Keep Vein Open - Exam General: Alert, Oriented, Cooperative Neck: Supple, Trachea Midline, No JVD Lungs: Decreased Breath Sounds (mild throughout), Crackles (bilateral bases mild. ) Cardiovascular: Regular Rate, Regular Rhythm GI/Abdominal Exam: Soft, Non-Tender Back Exam: Normal Inspection Extremities: Normal Inspection, Normal Range of Motion, Non-Tender, No Pedal Edema, Normal Capillary Refill Peripheral Pulses: 2+: Radial (L), Radial (R), Posterior Tibial (L), Posterior Tibial (R) Skin: Warm, Dry, Intact Neurological: No New Focal Deficit Psy/Mental Status: Alert, Normal Affect, Normal Mood Sepsis Event Note - Evaluation Sepsis Screening Result: No Definite Risk - Focused Exam Vital Signs: Vital Signs Temp Pulse Resp BP BP Pulse Ox 01/11/20 08:08 125/53 L 01/11/20 08:00 99.3 F 80 18 125/53 L 94 L - Problem List Review Problem List Initiated/Reviewed/Updated: Yes - My Orders Last 24 Hours: My Active Orders 01/11/20 09:29 Chest 2V [CR] Routine 01/11/20 10:20 CBC WITH AUTO DIFF [HEME] Routine COMPREHENSIVE METABOLIC PN,CMP [CHEM] Routine CREATINE KINASE,CK [CHEM] Routine CRP [C-REACTIVE PROTEIN] [CHEM] Routine INR,PT,PROTHROMBIN TIME [COAG] Routine LACTIC ACID [CHEM] Routine PRO B-TYPE NATRIUR PEPT,BNPPRO [CHEM] Routine PTT,PARTIAL THROMBOPLSTIN TIME [COAG] Routine 01/11/20 10:25 Incentive Spirometry [RT Incentive Spirometry] [RC] Q2HWA 01/11/20 10:34 D-DIMER QUANTITATIVE [COAG] Routine - Plan Plan:: Patient is due for 14 day recertification. Alida continues to show improvement with ambulation with pelvic fracture. Physical therapy has continued to work with patient which has showed daily improvement. Patient continues swing bed status with physical therapy and awaiting long term placement. Patient verbalized understanding. Denies any concerns at this time. 01/11/2020 0925am I received a phone call from RN this morning that the patient had a COVID test that was sent out to the [facility]. They have called and reported patient to be POSITIVE for COVID. I went and saw the patient, she reports having a dry cough for about 2-3 days. Patient deneis ay other symptoms. She reports she has a good appetite, has her energy. She reports that she does not feel short of breath. Patient oxygen has been 94-95% on RA. She is not in distress and is NOT requiring oxygen. Therefore, per CDC guidelines, patient does not qualify for COVID tx at this time. I did call and spoke to her son Tab and made him aware of her condition and test. He did ask about tx, I explained in great length about cdc guidelines and no tx at this time. I did explain that the patient may worsen during her admit, and that her condition will more than likely worsen. If explained to him that if she starts to require oxygen, then she may obtain other treatments per cdc guidelines. The son understands this and agrees with plan of care after explanation at this time. Patient PCP will see her tomorrow. I did order labs and cxr on this patient to be done today. She is being moved to a COVID room with precautions now. 01/11/2020 1630pm I have reviewed patient labs and CXR. Patient lactic acid is 3.5. She had elevated lactic acid in February 2019 with pneumonia. Otherwise her labs are unremarkable for a COVID patient today. Her CXR though does look to show infiltrate right base and a consolidation in the left base. I do not see ground glass in this area consistent with viral covid. Therefore, with an elevated lactic, cough, will treat for pneumonia. Will give fluids for her elevated lactic acid and repeat labs and lactic in the morning. I again called Tab her son and discussed her labs and CXR and treatment plan. Still at this time, patient is not requiring oxygen, will not do antiviral or steroids at this time per CDC guidelines.
[2020-01-11 10:45] LABS: PTT,PARTIAL THROMBOPLSTIN TIME 28.8 SEC (23.2-32.3)
[2020-01-11] MEDS ORDERED: Sodium Chloride 0.9% 1,000 ML IV SCH (16:30)
[2020-01-11] MEDS: Cefepime 2 GM in Sodium Chloride 0.9% 50 ML IV SCH (18:18)
[2020-01-11] MEDS: atorvaSTATin 20 MG Tab PO SCH (20:23)
[2020-01-11] MEDS: Enoxaparin 30 MG/0.3 ML Syringe SUBCUT SCH (20:25)
[2020-01-11] MEDS: LUMIGAN 0.01% EYEBOTH SCH (20:33)
[2020-01-12 07:38] LABS: CHLORIDE,CL 100 mEq/L (98-106); SODIUM,NA 134 mEq/L (136-145)
[2020-01-12] MEDS: Oxybutynin 5 MG Tab.ER PO SCH (07:40)
[2020-01-12] MEDS: Losartan 100 MG Tab PO SCH (07:41)
[2020-01-12] MEDS: Hydrochlorothiazide 12.5 MG Cap PO SCH (07:41)
[2020-01-12] MEDS: Multivitamin Tab PO SCH (07:41)
[2020-01-12] MEDS: Cholecalciferol (Vitamin D3) 25 MCG Tab PO SCH (07:41)
[2020-01-12] MEDS: Carbidopa/Levodopa 25-100 MG Tab PO SCH ×2 (07:42→20:16)
[2020-01-12] MEDS: Timolol Maleate 0.5% Ophth Soln 5 ML Bottle EYELF SCH (07:42)
[2020-01-12] MEDS: Calcium Carbonate/Vitamin D3 1250 MG-200 Unit Tab PO SCH ×2 (07:42→17:57)
[2020-01-12] MEDS: metFORMIN 500 MG Tab PO SCH ×2 (07:46→17:58)
[2020-01-12] MEDS: Insulin Lispro 100 Units/ML 3 ML Vial SUBCUT SCH ×4 (08:34→20:22)
[2020-01-12] MEDS: Cefepime 2 GM in Sodium Chloride 0.9% 50 ML IV SCH (17:57)
[2020-01-12] MEDS: atorvaSTATin 20 MG Tab PO SCH (20:09)
[2020-01-12] MEDS: LUMIGAN 0.01% EYEBOTH SCH (20:12)
[2020-01-12] MEDS: Enoxaparin 30 MG/0.3 ML Syringe SUBCUT SCH (20:12)
[2020-01-13] MEDS: Cholecalciferol (Vitamin D3) 25 MCG Tab PO SCH (08:28)
[2020-01-13] MEDS: Calcium Carbonate/Vitamin D3 1250 MG-200 Unit Tab PO SCH ×2 (08:28→17:26)
[2020-01-13] MEDS: Multivitamin Tab PO SCH (08:29)
[2020-01-13] MEDS: Losartan 100 MG Tab PO SCH (08:29)
[2020-01-13] MEDS: Oxybutynin 5 MG Tab.ER PO SCH (08:29)
[2020-01-13] MEDS: Hydrochlorothiazide 12.5 MG Cap PO SCH (08:30)
[2020-01-13] MEDS: Carbidopa/Levodopa 25-100 MG Tab PO SCH ×2 (08:30→19:56)
[2020-01-13] MEDS: Insulin Lispro 100 Units/ML 3 ML Vial SUBCUT SCH ×4 (08:31→20:23)
[2020-01-13] MEDS: Timolol Maleate 0.5% Ophth Soln 5 ML Bottle EYELF SCH (08:31)
[2020-01-13] MEDS: metFORMIN 500 MG Tab PO SCH ×2 (08:32→17:26)
[2020-01-13] MEDS: Levofloxacin/Dextrose 5%-Water 500 MG in Premix Bag 1 BAG IV SCH (19:55)
[2020-01-13] MEDS: Enoxaparin 30 MG/0.3 ML Syringe SUBCUT SCH (19:56)
[2020-01-13] MEDS: atorvaSTATin 20 MG Tab PO SCH (19:56)
[2020-01-13] MEDS: LUMIGAN 0.01% EYEBOTH SCH (19:57)
[2020-01-14] MEDS: Oxybutynin 5 MG Tab.ER PO SCH (07:36)
[2020-01-14] MEDS: Cholecalciferol (Vitamin D3) 25 MCG Tab PO SCH (07:36)
[2020-01-14] MEDS: Calcium Carbonate/Vitamin D3 1250 MG-200 Unit Tab PO SCH ×2 (07:36→17:16)
[2020-01-14] MEDS: Carbidopa/Levodopa 25-100 MG Tab PO SCH ×2 (07:36→20:13)
[2020-01-14] MEDS: Losartan 100 MG Tab PO SCH (07:36)
[2020-01-14] MEDS: metFORMIN 500 MG Tab PO SCH ×2 (07:37→17:16)
[2020-01-14] MEDS: Hydrochlorothiazide 12.5 MG Cap PO SCH (07:38)
[2020-01-14] MEDS: Insulin Lispro 100 Units/ML 3 ML Vial SUBCUT SCH ×4 (07:38→20:53)
[2020-01-14] MEDS: Multivitamin Tab PO SCH (07:38)
[2020-01-14] MEDS: Timolol Maleate 0.5% Ophth Soln 5 ML Bottle EYELF SCH (07:39)
[2020-01-14] MEDS: Levofloxacin/Dextrose 5%-Water 500 MG in Premix Bag 1 BAG IV SCH (20:12)
[2020-01-14] MEDS: atorvaSTATin 20 MG Tab PO SCH (20:13)
[2020-01-14] MEDS: LUMIGAN 0.01% EYEBOTH SCH (20:14)
[2020-01-14] MEDS: Enoxaparin 30 MG/0.3 ML Syringe SUBCUT SCH (20:14)
[2020-01-15] MEDS: metFORMIN 500 MG Tab PO SCH ×2 (07:40→17:39)
[2020-01-15] MEDS: Carbidopa/Levodopa 25-100 MG Tab PO SCH ×2 (07:40→20:19)
[2020-01-15] MEDS: Cholecalciferol (Vitamin D3) 25 MCG Tab PO SCH (07:41)
[2020-01-15] MEDS: Multivitamin Tab PO SCH (07:41)
[2020-01-15] MEDS: Losartan 100 MG Tab PO SCH (07:42)
[2020-01-15] MEDS: Oxybutynin 5 MG Tab.ER PO SCH (07:42)
[2020-01-15] MEDS: Hydrochlorothiazide 12.5 MG Cap PO SCH (07:42)
[2020-01-15] MEDS: Calcium Carbonate/Vitamin D3 1250 MG-200 Unit Tab PO SCH ×2 (07:42→17:39)
[2020-01-15] MEDS: Timolol Maleate 0.5% Ophth Soln 5 ML Bottle EYELF SCH (07:44)
[2020-01-15] MEDS: Insulin Lispro 100 Units/ML 3 ML Vial SUBCUT SCH ×6 (07:56→20:42)
[2020-01-15] MEDS: LUMIGAN 0.01% EYEBOTH SCH (20:18)
[2020-01-15] MEDS: Enoxaparin 30 MG/0.3 ML Syringe SUBCUT SCH (20:19)
[2020-01-15] MEDS: atorvaSTATin 20 MG Tab PO SCH (20:19)
[2020-01-15] MEDS: Levofloxacin/Dextrose 5%-Water 500 MG in Premix Bag 1 BAG IV SCH (20:19)
[2020-01-15] MEDS: Ondansetron 4 MG Tab.DIS PO PRN (21:52)
[2020-01-16] MEDS: Calcium Carbonate/Vitamin D3 1250 MG-200 Unit Tab PO SCH ×2 (07:52→17:19)
[2020-01-16] MEDS: metFORMIN 500 MG Tab PO SCH ×2 (07:52→17:19)
[2020-01-16] MEDS: Oxybutynin 5 MG Tab.ER PO SCH (07:52)
[2020-01-16] MEDS: Cholecalciferol (Vitamin D3) 25 MCG Tab PO SCH (07:52)
[2020-01-16] MEDS: Multivitamin Tab PO SCH (07:52)
[2020-01-16] MEDS: Carbidopa/Levodopa 25-100 MG Tab PO SCH ×2 (07:53→20:01)
[2020-01-16] MEDS: Hydrochlorothiazide 12.5 MG Cap PO SCH (07:53)
[2020-01-16] MEDS: Timolol Maleate 0.5% Ophth Soln 5 ML Bottle EYELF SCH (07:55)
[2020-01-16] MEDS: Insulin Lispro 100 Units/ML 3 ML Vial SUBCUT SCH ×4 (08:19→21:26)
[2020-01-16] MEDS: Losartan 100 MG Tab PO SCH (08:19)
[2020-01-16] MEDS: atorvaSTATin 20 MG Tab PO SCH (20:01)
[2020-01-16] MEDS: Levofloxacin/Dextrose 5%-Water 500 MG in Premix Bag 1 BAG IV SCH (20:01)
[2020-01-16] MEDS: LUMIGAN 0.01% EYEBOTH SCH (20:02)
[2020-01-16] MEDS: Enoxaparin 30 MG/0.3 ML Syringe SUBCUT SCH (20:02)
[2020-01-17] MEDS: Calcium Carbonate/Vitamin D3 1250 MG-200 Unit Tab PO SCH ×2 (07:57→16:55)
[2020-01-17] MEDS: Carbidopa/Levodopa 25-100 MG Tab PO SCH ×2 (07:58→20:34)
[2020-01-17] MEDS: Cholecalciferol (Vitamin D3) 25 MCG Tab PO SCH (07:58)
[2020-01-17] MEDS: Oxybutynin 5 MG Tab.ER PO SCH (08:02)
[2020-01-17] MEDS: metFORMIN 500 MG Tab PO SCH ×2 (08:02→16:55)
[2020-01-17] MEDS: Hydrochlorothiazide 12.5 MG Cap PO SCH (08:02)
[2020-01-17] MEDS: Multivitamin Tab PO SCH (08:02)
[2020-01-17] MEDS: Timolol Maleate 0.5% Ophth Soln 5 ML Bottle EYELF SCH (08:09)
[2020-01-17] MEDS: Insulin Lispro 100 Units/ML 3 ML Vial SUBCUT SCH ×4 (08:18→20:37)
[2020-01-17] MEDS: Losartan 100 MG Tab PO SCH (08:18)
[2020-01-17] MEDS: Ondansetron 4 MG Tab.DIS PO PRN (11:14)
[2020-01-17] MEDS: Levofloxacin/Dextrose 5%-Water 500 MG in Premix Bag 1 BAG IV SCH (20:33)
[2020-01-17] MEDS: atorvaSTATin 20 MG Tab PO SCH (20:34)
[2020-01-17] MEDS: Enoxaparin 30 MG/0.3 ML Syringe SUBCUT SCH (20:34)
[2020-01-17] MEDS: LUMIGAN 0.01% EYEBOTH SCH (20:35)
[2020-01-18] MEDS: Carbidopa/Levodopa 25-100 MG Tab PO SCH ×2 (07:52→20:39)
[2020-01-18] MEDS: Calcium Carbonate/Vitamin D3 1250 MG-200 Unit Tab PO SCH ×2 (07:52→18:20)
[2020-01-18] MEDS: Multivitamin Tab PO SCH (07:52)
[2020-01-18] MEDS: Hydrochlorothiazide 12.5 MG Cap PO SCH (07:52)
[2020-01-18] MEDS: Losartan 100 MG Tab PO SCH (07:52)
[2020-01-18] MEDS: Oxybutynin 5 MG Tab.ER PO SCH (07:52)
[2020-01-18] MEDS: metFORMIN 500 MG Tab PO SCH ×2 (07:53→18:20)
[2020-01-18] MEDS: Cholecalciferol (Vitamin D3) 25 MCG Tab PO SCH (07:53)
[2020-01-18] MEDS: Timolol Maleate 0.5% Ophth Soln 5 ML Bottle EYELF SCH (07:55)
[2020-01-18] MEDS: Insulin Lispro 100 Units/ML 3 ML Vial SUBCUT SCH ×4 (08:30→20:52)
[2020-01-18] MEDS: atorvaSTATin 20 MG Tab PO SCH (20:39)
[2020-01-18] MEDS: Enoxaparin 30 MG/0.3 ML Syringe SUBCUT SCH (20:39)
[2020-01-18] MEDS: Levofloxacin/Dextrose 5%-Water 500 MG in Premix Bag 1 BAG IV SCH (20:40)
[2020-01-18] MEDS: LUMIGAN 0.01% EYEBOTH SCH (20:41)
[2020-01-19] MEDS: Ondansetron 4 MG Tab.DIS PO PRN (03:24)
[2020-01-19] MEDS: Calcium Carbonate/Vitamin D3 1250 MG-200 Unit Tab PO SCH ×2 (07:55→08:08)
[2020-01-19] MEDS: metFORMIN 500 MG Tab PO SCH ×2 (07:55→08:08)
[2020-01-19] MEDS: Multivitamin Tab PO SCH ×2 (07:55→08:09)
[2020-01-19] MEDS: Cholecalciferol (Vitamin D3) 25 MCG Tab PO SCH ×2 (07:56→08:09)
[2020-01-19] MEDS: Hydrochlorothiazide 12.5 MG Cap PO SCH ×2 (07:56→08:08)
[2020-01-19] MEDS: Losartan 100 MG Tab PO SCH ×2 (07:57→08:08)
[2020-01-19] MEDS: Carbidopa/Levodopa 25-100 MG Tab PO SCH ×2 (07:57→08:08)
[2020-01-19] MEDS: Oxybutynin 5 MG Tab.ER PO SCH ×2 (07:58→08:09)
[2020-01-19] MEDS: Insulin Lispro 100 Units/ML 3 ML Vial SUBCUT SCH (07:58)
[2020-01-19] MEDS: Timolol Maleate 0.5% Ophth Soln 5 ML Bottle EYELF SCH (07:59)
[2020-01-19 08:39] VITALS: BP 124/68; PULSE 86
--- NOTE | 2020-01-19 09:04 | PCM.DCSUM1 ---
Discharge Summary - Hospital Course HPI Initial Comments: This patient was admitted for pelvis fracture and swing bed. She got COVID during admit, which she has recovered from. She is being sent and admitted to the [facility]. She has no complaints. - Discharge Data Discharge Date: 01/19/20 Discharge Disposition: Home, Self-Care 01 Condition: Good - Referral to Home Health Primary Care Physician: Ger Clarke MD - Patient Summary/Data Consults: Consultations 12/18/19 10:28 Consult to Case Management/Performance Engineer [CONS] Routine PT Evaluation and Treatment [CONS] Routine - Patient Instructions Diet: Limited Carb Activity: As Tolerated Showering/Bathing: June Shower Notify Provider of: Fever, Nausea and/or Vomiting - Discharge Plan *PRESCRIPTION DRUG MONITORING PROGRAM REVIEWED*: Not Applicable *COPY OF PRESCRIPTION DRUG MONITORING REPORT IN PATIENT JESSICA: Not Applicable Home Medications: Home Meds Cholecalciferol (Vitamin D3) [Vitamin D3] 2,000 unit PO DAILY 06/18/14 [History] Lutein 20 mg PO DAILY 06/18/14 [History] Valsartan/Hydrochlorothiazide [Valsartan-Hctz 160-12.5 mg Tab] 1 each PO DAILY 06/18/14 [History] atorvaSTATin Calcium [Atorvastatin Calcium] 40 mg PO BEDTIME 06/18/14 [History] glipiZIDE [Glipizide ER] 10 mg PO BID 06/18/14 [History] metFORMIN [Glucophage] 1,000 mg PO BID 06/18/14 [History] timoloL maleate [Timoptic 0.5% Ocudose] 1 drop EYELF DAILY 06/18/14 [History] Carbidopa/Levodopa [Carbidopa-Levodopa 25-100] 1.5 tab PO BID 06/19/14 [History] Clopidogrel [Plavix] 75 mg PO DAILY #30 tablet 06/19/14 [Rx] Calcium Carb/D3/Magnesium/Zinc [Raghu Mag Zinc-D Tablet] 1 tab PO DAILY 05/14/16 [History] Iron 1 tab PO DAILY 05/14/16 [History] Multivitamin [Multi-Vitamin Daily] 1 tab PO DAILY 05/14/16 [History] Bimatoprost [LUMIGAN 0.01% Ophth Soln] 1 drop EYEBOTH BEDTIME 12/16/19 [History] Acetaminophen [Tylenol Extra Strength] 1,000 mg PO Q6H PRN tablet 01/19/20 [Rx] Acetaminophen/HYDROcodone [Carlotta 325-5 MG] 1 tab PO Q4H PRN tablet 01/19/20 [Rx] Calcium Carbonate/Vitamin D3 [Calcium Carbonate/Vitamin D 1250 MG-200 Unit] 1 tab PO BIDMEALS tablet 01/19/20 [Rx] Docusate Sodium [Colace] 100 mg PO BID PRN cap 01/19/20 [Rx] Glucagon,Human Recombinant [Glucagen] 1 mg IM ASDIRECTED PRN vial 01/19/20 [Rx] Insulin Lispro [HumaLOG] 0 unit SUBCUT WITHMEALSANDBED vial 01/19/20 [Rx] Losartan [Cozaar] 100 mg PO DAILY tablet 01/19/20 [Rx] Ondansetron [Zofran ODT] 4 mg PO Q6H PRN tab.dis 01/19/20 [Rx] Oxybutynin [Oxybutynin ER] 5 mg PO DAILY tab.er 01/19/20 [Rx] hydroCHLOROthiazide [Hydrochlorothiazide] 12.5 mg PO DAILY cap 01/19/20 [Rx] polyethylene glycoL 3350 [MiraLAX] 17 gm PO DAILY PRN packet 01/19/20 [Rx] Oxygen Therapy Mode: Room Air - Discharge Summary/Plan Comment DC Time >30 min.: No - General Info Date of Service: 01/19/20 Functional Status: Reports: Pain Controlled, Tolerating Diet - Review of Systems General: Reports: Weakness, Fatigue HEENT: Reports: No Symptoms Pulmonary: Reports: Cough. Denies: Shortness of Breath Cardiovascular: Reports: No Symptoms Gastrointestinal: Reports: No Symptoms Genitourinary: Reports: No Symptoms Musculoskeletal: Reports: No Symptoms Skin: Reports: No Symptoms Neurological: Reports: No Symptoms Psychiatric: Reports: No Symptoms - Patient Data Vitals - Most Recent: Last Vital Signs Temp 97.9 F 01/19/20 08:00 Pulse 86 01/19/20 08:00 Resp 18 01/19/20 08:00 BP 124/68 01/19/20 08:00 Pulse Ox 94 L 01/19/20 08:00 Weight - Most Recent: 170 lb 3.2 oz Med Orders - Current: Current Medications Acetaminophen (Tylenol Extra Strength) 1,000 mg PO Q6H PRN PRN Reason: Pain (Mild 1-3)/fever Last Admin: 01/05/20 21:02 Dose: 1,000 mg Documented by: Hydrocodone Bitart/Acetaminophen (Carlotta 325-5 Mg) 1 tab PO Q4H PRN PRN Reason: Pain (moderate 4-6) Atorvastatin Calcium (Lipitor) 40 mg PO BEDTIME [facility] Last Admin: 01/18/20 20:39 Dose: 40 mg Documented by: Calcium Carbonate (Calcium Carbonate/Vitamin D 1250 Mg-200 Unit) 1 tab PO BIDMEALS [facility] Last Admin: 01/19/20 08:08 Dose: Not Given Documented by: Carbidopa/Levodopa (Sinemet 25-100 Mg) 1.5 tab PO BID [facility] Last Admin: 01/19/20 08:08 Dose: Not Given Documented by: Cholecalciferol (Vitamin D3) 50 mcg PO DAILY [facility] Last Admin: 01/19/20 08:09 Dose: Not Given Documented by: Dextrose/Water (Dextrose 50% In Water) 50 ml IV ASDIRECTED PRN PRN Reason: Hypoglycemia Docusate Sodium (Colace) 100 mg PO BID PRN PRN Reason: Constipation Enoxaparin Sodium (Lovenox) 30 mg SUBCUT Q24H [facility] Last Admin: 01/18/20 20:39 Dose: 30 mg Documented by: Glucagon (Glucagen) 1 mg IM ASDIRECTED PRN PRN Reason: Hypoglycemia Hydrochlorothiazide (Hydrochlorothiazide) 12.5 mg PO DAILY [facility] Last Admin: 01/19/20 08:08 Dose: Not Given Documented by: Levofloxacin/Dextrose 500 mg/ (Premix) 100 mls @ 100 mls/hr IV DAILY@1999 [facility] Last Admin: 01/18/20 20:40 Dose: 100 mls/hr Documented by: Insulin Human Lispro (Humalog) 0 unit SUBCUT WITHMEALSANDBED [facility]; Protocol Last Admin: 01/19/20 07:58 Dose: 2 units Documented by: Losartan Potassium (Cozaar) 100 mg PO DAILY [facility] Last Admin: 01/19/20 08:08 Dose: Not Given Documented by: Metformin HCl (Glucophage) 1,000 mg PO BID@0800,1730 [facility] Last Admin: 01/19/20 08:08 Dose: Not Given Documented by: Multivitamins/Minerals/Vitamin C (Tab-A-Stephanie) 1 tab PO DAILY [facility] Last Admin: 01/19/20 08:09 Dose: Not Given Documented by: Lumigan 0.01% Ophth (Own Med) 0 each EYEBOTH BEDTIME [facility] Last Admin: 01/18/20 20:41 Dose: 2 each Documented by: Ondansetron HCl (Zofran Odt) 4 mg PO Q6H PRN PRN Reason: Nausea/Vomiting Last Admin: 01/19/20 03:24 Dose: 4 mg Documented by: Oxybutynin Chloride (Oxybutynin Er) 5 mg PO DAILY [facility] Last Admin: 01/19/20 08:09 Dose: Not Given Documented by: Polyethylene Glycol (Miralax) 17 gm PO DAILY PRN PRN Reason: Constipation Sodium Chloride (Saline Flush) 10 ml FLUSH ASDIRECTED PRN PRN Reason: Keep Vein Open Timolol Maleate (Timoptic 0.5% Ophth Soln) 0 ml EYELF DAILY [facility] Last Admin: 01/19/20 07:59 Dose: 1 drop Documented by: Discontinued Medications Dextrose/Water (Dextrose 50% In Water) 50 ml IV ASDIRECTED PRN PRN Reason: Hypoglycemia Glipizide (Glucotrol Xl) 10 mg PO BID [facility] Last Admin: 01/01/20 21:51 Dose: Not Given Documented by: Glucagon (Glucagen) 1 mg IM ASDIRECTED PRN PRN Reason: Hypoglycemia Sodium Chloride (Normal Saline) 1,000 mls @ 100 mls/hr IV ASDIRECTED [facility] Stop: 01/12/20 02:29 Last Admin: 01/11/20 16:43 Dose: 100 mls/hr Documented by: Cefepime HCl 2 gm/ Sodium (Chloride) 50 mls @ 100 mls/hr IV Q24H [facility] Last Admin: 01/12/20 17:57 Dose: 100 mls/hr Documented by: Vancomycin HCl 1 gm/ Premix 200 mls @ 200 mls/hr IV Q18H [facility] Last Admin: 01/13/20 05:09 Dose: 200 mls/hr Documented by: Metformin HCl (Glucophage) 1,000 mg PO BID [facility] Last Admin: 01/01/20 21:50 Dose: Not Given Documented by: Metformin HCl (Glucophage) 1,000 mg PO 0800,1730 [facility] Last Admin: 11/17/20 08:32 Dose: 1,000 mg Documented by: Timolol Maleate 0.5% (Ophth Own Med) 0 each EYELF DAILY [facility] Last Admin: 01/05/20 10:40 Dose: Not Given Documented by: Sodium Chloride (Saline Flush) 10 ml FLUSH ASDIRECTED PRN PRN Reason: Keep Vein Open Vancomycin HCl (Pharmacy To Dose - Vancomycin) 1 dose .XX ASDIRECTED [facility] - Exam General: Reports: Alert, Oriented, Cooperative Lungs: Reports: Clear to Auscultation, Normal Respiratory Effort Cardiovascular: Reports: Regular Rate, Regular Rhythm GI/Abdominal Exam: Soft, Non-Tender Back Exam: Reports: Normal Inspection Extremities: Normal Inspection, Normal Range of Motion, Non-Tender, No Pedal Edema, Normal Capillary Refill Skin: Reports: Warm, Dry, Intact Psy/Mental Status: Reports: Alert, Normal Affect, Normal Mood
== END 2020-01-19 11:13 | DRG 559 ==
LOC: CC.MS 08:45 → UNDOADMIN 08:46 → CC.MS 01-11 11:04
PROVIDERS: ADMIT Physician Assistant Medical; ATTEND Family Medicine
PROC: 8E0ZXY6 Isolation (ICD-10-PCS; principal; 2020-01-08)
DX: S32.9XXD Fracture of unspecified parts of lumbosacral spine and pelvis, subsequent encounter for fracture with routine healing (principal); U07.1 COVID-19; J18.9 Pneumonia, unspecified organism; W19.XXXD Unspecified fall, subsequent encounter; Z79.899 Other long term (current) drug therapy; E11.9 Type 2 diabetes mellitus without complications; G20 Parkinson's disease; Z87.01 Personal history of pneumonia (recurrent)
CPT/HCPCS: 36415; 71046; 80053; 82550; 82962; 83605; 83880; 85025; 85379; 85610; 85730; 86140; 87040; 97110-GP; 97530-GP; A9270-GY; J0692; J1650; J1956; J3370; J7030; U0002

== ENCOUNTER 2020-12-10 16:16 | Inpatient (IN) | payer MEDICARE, BC ==
--- NOTE | 2020-12-10 17:08 | EDM.PDOC ---
ED HPI GENERAL MEDICAL PROBLEM - General Chief Complaint: Genitourinary Problem Stated Complaint: ? UTI Time Seen by Provider: 12/10/20 16:42 Source of Information: Reports: Patient History Limitations: Reports: No Limitations - History of Present Illness INITIAL COMMENTS - FREE TEXT/NARRATIVE: This patient is an 89 year old female that presents to the ER with son. Son is historian. He reports the patient is a [facility] patient. He reports that the patient on Sunday started having more confusion and complaining of groin pain. He reports [facility] called clinic today and got a UA done that shows UTI. Amy WRIGHT reports she got report from [facility]. They report the patient has not had fever, vomiting, diarrhea. Deny falls or injuries. Denies unilateral weakness. The patient was ordered an abx, patient has not started yet. Son wanted patient evaluated in the ER. Onset Date: 12/08/20 Duration: Day(s): (2) Location: Reports: Other (groin per son) Severity: Mild Improves with: Reports: None Worsens with: Reports: None Associated Symptoms: Reports: Confusion - Related Data Allergies Allergy/AdvReac Type Severity Reaction Status Date / Time No Known Allergies Allergy Verified 12/10/20 16:11 Home Meds: Home Meds Lutein 20 mg PO DAILY 06/18/14 [History] Valsartan/Hydrochlorothiazide [Valsartan-Hctz 160-12.5 mg Tab] 1 each PO DAILY 06/18/14 [History] glipiZIDE [Glipizide ER] 10 mg PO BID 06/18/14 [History] metFORMIN [Glucophage] 1,000 mg PO BID 06/18/14 [History] timoloL maleate [Timoptic 0.5% Ocudose] 1 drop EYELF DAILY 06/18/14 [History] Carbidopa/Levodopa [Carbidopa-Levodopa 25-100] 1.5 tab PO BID 06/19/14 [History] Clopidogrel [Plavix] 75 mg PO DAILY #30 tablet 06/19/14 [Rx] Calcium Carb/D3/Magnesium/Zinc [Raghu Mag Zinc-D Tablet] 1 tab PO DAILY 05/14/16 [History] Iron 1 tab PO DAILY 05/14/16 [History] Multivitamin [Multi-Vitamin Daily] 1 tab PO DAILY 05/14/16 [History] Bimatoprost [LUMIGAN 0.01% Ophth Soln] 1 drop EYEBOTH BEDTIME 12/16/19 [History] Acetaminophen [Tylenol Extra Strength] 1,000 mg PO Q6H PRN tablet 01/19/20 [Rx] Docusate Sodium [Colace] 100 mg PO BID PRN cap 01/19/20 [Rx] Losartan [Cozaar] 100 mg PO DAILY tablet 01/19/20 [Rx] Oxybutynin [Oxybutynin ER] 5 mg PO DAILY tab.er 01/19/20 [Rx] polyethylene glycoL 3350 [MiraLAX] 17 gm PO DAILY PRN packet 01/19/20 [Rx] Magnesium Hydroxide [Milk of Magnesia] 30 ml PO DAILY PRN 12/10/20 [History] Promethazine HCl 2 tsp PO Q4H PRN 12/10/20 [History] bisacodyL [Dulcolax] 10 mg RECTAL DAILY PRN 12/10/20 [History] cefUROXime axetiL [Ceftin] 250 mg PO BID 12/10/20 [History] Past Medical History HEENT History: Reports: Allergic Rhinitis, Cataract, Impaired Vision, Macular Degeneration Cardiovascular History: Reports: Afib, High Cholesterol, Hypertension Genitourinary History: Reports: Other (See Below) Other Genitourinary History: nocturia 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: Musculoskeletal History: Reports: Arthritis, Osteoporosis, Other (See Below) Other Musculoskeletal History: arthralgia Neurological History: Reports: CVA, Parkinson's, TIA Endocrine/Metabolic History: Reports: Diabetes, Type II, Vitamin D Deficiency Hematologic History: Reports: Other (See Below) Other Hematologic History: pernicious anemia Oncologic (Cancer) History: Reports: Breast - Infectious Disease History Infectious Disease History: Reports: Novel Coronavirus - Past Surgical History HEENT Surgical History: Reports: Cataract Surgery Cardiovascular Surgical History: Reports: None Female Surgical History: Reports: Other (See Below) Other Female Surgeries/Procedures: enlarged uterus Endocrine Surgical History: Reports: None Neurological Surgical History: Reports: None Musculoskeletal Surgical History: Reports: None Social & Family History - Family History Family Medical History: No Pertinent Family History - Tobacco Use Tobacco Use Status *Q: Never Tobacco User - Recreational Drug Use Recreational Drug Use: No ED ROS GENERAL - Review of Systems Review Of Systems: Unable To Obtain (due to patient confusion. Hx of dementia.) Reason Not Obtained: Patient dementia, unable to give her own ROS. ED EXAM, RENAL/ - Physical Exam Exam: See Below Exam Limited By: Altered Mental Status (hx dementia. increased confusion) General Appearance: Alert, WD/WN, No Apparent Distress Eye Exam: Bilateral Eye: Normal Inspection, PERRL Ears: Normal External Exam, Normal Canal, Hearing Grossly Normal, Normal TMs Nose: Normal Inspection, Normal Mucosa, No Blood Throat/Mouth: Normal Inspection, Normal Lips, Normal Gums, Normal Oropharynx, Normal Voice, No Airway Compromise, Other (dentures) Head: Atraumatic, Normocephalic Neck: Supple, Non-Tender Respiratory/Chest: No Respiratory Distress, Lungs Clear, Normal Breath Sounds, No Accessory Muscle Use Cardiovascular: Normal Peripheral Pulses, Regular Rate, Rhythm, No Edema, No Gallop, No JVD, No Murmur, No Rub GI/Abdominal: Soft, Non-Tender Extremities: Normal Inspection Neurological: Alert, Confused, Other (no unilateral weakness. In wheelchair. ) Psychiatric: Normal Affect, Normal Mood Skin Exam: Warm, Dry, Intact, Normal Color, No Rash Lymphatic: No Adenopathy Course - Vital Signs Last Recorded V/S: Last Vital Signs Temp 97.9 F 12/11/20 12:00 Pulse 71 12/11/20 12:00 Resp 16 12/11/20 12:00 BP 118/66 12/11/20 12:00 Pulse Ox 96 12/11/20 12:00 - Orders/Labs/Meds Orders: Active Orders 24 hr Category Date Time Status CULTURE BLOOD [BC] Stat Lab 12/10/20 16:35 Received CULTURE BLOOD [BC] Stat Lab 12/10/20 16:40 Received Blood Culture x2 Reflex Set [OM.PC] Stat Oth 12/10/20 16:29 Ordered Medication Orders Acetaminophen (Acetaminophen 325 Mg Tab) 650 mg PO Q4H PRN PRN Reason: Pain (Mild 1-3)/fever Bisacodyl (Bisacodyl 10 Mg Supp) 10 mg RECTAL DAILY PRN PRN Reason: Constipation Carbidopa/Levodopa (Carbidopa/Levodopa 25-100 Mg Tab) 1.5 tab PO BID [facility] Last Admin: 12/11/20 08:15 Dose: 1.5 tab Documented by: Admin: 12/10/20 20:02 Dose: 1.5 tab Documented by: KASSANDRA Ceftriaxone Sodium (Ceftriaxone 1 Gm Vial) 1 gm IVPUSH Q24H [facility] Last Admin: 12/10/20 18:15 Dose: 1 gm Documented by: LEE Clopidogrel Bisulfate (Clopidogrel 75 Mg Tab) 75 mg PO DAILY [facility] Last Admin: 12/11/20 08:16 Dose: 75 mg Documented by: SONIA Docusate Sodium (Docusate Sodium 100 Mg Cap) 100 mg PO BID PRN PRN Reason: Constipation Enoxaparin Sodium (Enoxaparin 30 Mg/0.3 Ml Syringe) 30 mg SUBCUT Q24H [facility] Last Admin: 12/10/20 20:03 Dose: 30 mg Documented by: KASSANDRA Glipizide (Glipizide 5 Mg Tab.Er) 10 mg PO BID [facility] Last Admin: 12/11/20 08:16 Dose: 10 mg Documented by: Admin: 12/10/20 20:02 Dose: 10 mg Documented by: KASSANDRA Hydrochlorothiazide (Hydrochlorothiazide 12.5 Mg Cap) 12.5 mg PO DAILY [facility] Last Admin: 12/11/20 08:30 Dose: Not Given Documented by: SONIA Ibuprofen (Ibuprofen 200 Mg Tab) 600 mg PO Q6H PRN PRN Reason: Pain (mild 1-3) Latanoprost (Latanoprost 0.005% Ophth Soln 2.5 Ml Bottle) 0 ml EYEBOTH BEDTIME [facility] Last Admin: 12/10/20 20:03 Dose: 1 drop Documented by: KASSANDRA Losartan Potassium (Losartan 100 Mg Tab) 100 mg PO DAILY [facility] Last Admin: 12/11/20 08:30 Dose: Not Given Documented by: SONIA Losartan Potassium (Losartan 100 Mg Tab) 100 mg PO DAILY [facility] Last Admin: 12/11/20 08:30 Dose: Not Given Documented by: SONIA Magnesium Hydroxide (Magnesium Hydroxide 400 Mg/5 Ml Susp 30 Ml Cup) 30 ml PO DAILY PRN PRN Reason: Constipation Metformin HCl (Metformin 500 Mg Tab) 1,000 mg PO BID [facility] Last Admin: 12/11/20 08:16 Dose: 1,000 mg Documented by: Admin: 12/10/20 20:01 Dose: 1,000 mg Documented by: KASSANDRA Ondansetron HCl (Ondansetron 4 Mg/2 Ml Sdv) 4 mg IV Q6H PRN PRN Reason: Nausea/Vomiting Oxybutynin Chloride (Oxybutynin 5 Mg Tab.Er) 5 mg PO DAILY [facility] Last Admin: 12/11/20 08:16 Dose: 5 mg Documented by: SONIA Polyethylene Glycol (Polyethylene Glycol 3350 Powder 17 Gm Packet) 17 gm PO DAILY PRN PRN Reason: Constipation Timolol Maleate (Timolol Maleate 0.5% Ophth Soln 5 Ml Bottle) 0 ml EYELF DAILY [facility] Last Admin: 12/11/20 09:07 Dose: 1 drop Documented by: SONIA Labs: Laboratory Tests 12/10/20 12/10/20 12/10/20 Range/Units 16:40 16:40 16:40 WBC 14.9 H (4.0-11.0) 10^3/uL RBC 3.30 L (4.00-5.50) x10^6/uL Hgb 10.3 L (12.0-16.0) g/dL Hct 31.0 L (37.0-47.0) % MCV 93.9 (83.0-97.0) fL MCH 31.2 (27.0-32.0) pg MCHC 33.2 (32.0-36.0) g/dL RDW Coeff of Andres 13.7 (11.0-15.0) % Plt Count 400 (150-400) 10^3/uL Immature Gran % (Auto) 0.3 (0.0-4.9) % Neut % (Auto) 68.1 (41-71) % Lymph % (Auto) 21.4 L (24-44) % Wolfe % (Auto) 9.5 (0-10) % Eos % (Auto) 0.4 (0-6) % Baso % (Auto) 0.3 (0-1) % Neut # (Auto) 10.17 H (1.80-8.00) x10^3/uL Lymph # (Auto) 3.19 (0.60-5.00) 10^3/uL Wolfe # (Auto) 1.41 (0.00-1.50) 10^3/uL Eos # (Auto) 0.06 (0.00-1.50) 10^3/uL Baso # (Auto) 0.05 (0.00-0.50) 10^3/uL Immature Gran # (Auto) 0.04 (0.00-0.49) 10^3/uL Sodium 137 (136-145) mEq/L Potassium 4.7 (3.5-5.0) mEq/L Chloride 97 L (98-106) mEq/L Carbon Dioxide 27 (21-32) mmol/L BUN 43 H D (7-18) mg/dL Creatinine 1.6 H D (0.6-1.0) mg/dL Est Cr Clr Drug Dosing 18.85 mL/min Estimated GFR (MDRD) 30 L (>=60) mL/min Glucose 170 H D (75-99) mg/dL Lactic Acid 2.9 H (0.4-2.0) mmol/L Calcium 10.4 H (8.4-10.1) mg/dL Meds: Medications Generic Name Dose Route Start Last Admin Trade Name Freq PRN Reason Stop Dose Admin Acetaminophen 650 mg 12/10/20 17:55 Acetaminophen 325 Mg Tab PO Q4H PRN Pain (Mild 1-3)/fever Bisacodyl 10 mg 12/10/20 17:55 Bisacodyl 10 Mg Supp RECTAL DAILY PRN Constipation Carbidopa/Levodopa 1.5 tab 12/10/20 20:00 12/11/20 08:15 Carbidopa/Levodopa 25-100 Mg Tab PO 1.5 tab BID [facility] Administration Ceftriaxone Sodium 1 gm 12/10/20 18:00 12/10/20 18:15 Ceftriaxone 1 Gm Vial IVPUSH 1 gm Q24H [facility] Administration Clopidogrel Bisulfate 75 mg 12/11/20 08:00 12/11/20 08:16 Clopidogrel 75 Mg Tab PO 75 mg DAILY [facility] Administration Docusate Sodium 100 mg 12/10/20 17:55 Docusate Sodium 100 Mg Cap PO BID PRN Constipation Enoxaparin Sodium 30 mg 12/10/20 20:00 12/10/20 20:03 Enoxaparin 30 Mg/0.3 Ml Syringe SUBCUT 30 mg Q24H [facility] Administration Glipizide 10 mg 12/10/20 20:00 12/11/20 08:16 Glipizide 5 Mg Tab.Er PO 10 mg BID [facility] Administration Hydrochlorothiazide 12.5 mg 12/11/20 08:00 12/11/20 08:30 Hydrochlorothiazide 12.5 Mg Cap PO Not Given DAILY [facility] Ibuprofen 600 mg 12/10/20 17:55 Ibuprofen 200 Mg Tab PO Q6H PRN Pain (mild 1-3) Latanoprost 0 ml 12/10/20 20:00 12/10/20 20:03 Latanoprost 0.005% Ophth Soln 2.5 Ml Bottle EYEBOTH 1 drop BEDTIME [facility] Administration Losartan Potassium 100 mg 12/11/20 08:00 12/11/20 08:30 Losartan 100 Mg Tab PO Not Given DAILY [facility] Losartan Potassium 100 mg 12/11/20 08:00 12/11/20 08:30 Losartan 100 Mg Tab PO Not Given DAILY [facility] Magnesium Hydroxide 30 ml 12/10/20 17:55 Magnesium Hydroxide 400 Mg/5 Ml Susp 30 Ml Cup PO DAILY PRN Constipation Metformin HCl 1,000 mg 12/10/20 20:00 12/11/20 08:16 Metformin 500 Mg Tab PO 1,000 mg BID [facility] Administration Ondansetron HCl 4 mg 12/10/20 17:55 Ondansetron 4 Mg/2 Ml Sdv IV Q6H PRN Nausea/Vomiting Oxybutynin Chloride 5 mg 12/11/20 08:00 12/11/20 08:16 Oxybutynin 5 Mg Tab.Er PO 5 mg DAILY [facility] Administration Polyethylene Glycol 17 gm 12/10/20 17:55 Polyethylene Glycol 3350 Powder 17 Gm Packet PO DAILY PRN Constipation Timolol Maleate 0 ml 12/11/20 08:00 12/11/20 09:07 Timolol Maleate 0.5% Ophth Soln 5 Ml Bottle EYELF 1 drop DAILY [facility] Administration Discontinued Medications Generic Name Dose Route Start Last Admin Trade Name Freq PRN Reason Stop Dose Admin Enoxaparin Sodium 30 mg 12/10/20 18:00 12/10/20 18:57 Enoxaparin 30 Mg/0.3 Ml Syringe SUBCUT Not Given Q24H [facility] Enoxaparin Sodium 30 mg 12/10/20 18:30 Enoxaparin 30 Mg/0.3 Ml Syringe SUBCUT Q24H [facility] Sodium Chloride 500 mls @ 500 mls/hr 12/10/20 18:00 12/10/20 18:15 Normal Saline IV 500 mls/hr .BOLUS [facility] Administration Sodium Chloride 1,000 mls @ 60 mls/hr 12/10/20 18:00 12/10/20 18:15 Normal Saline IV 12/11/20 10:39 60 mls/hr ASDIRECTED [facility] Administration Non-Formulary Medication 1 tab 12/11/20 08:00 Calcium Carb/D3/Magnesium/Zinc [Raghu Mag Zinc-D Tablet] PO DAILY [facility] Non-Formulary Medication 1 tab 12/11/20 08:00 Iron [Iron] PO DAILY [facility] Non-Formulary Medication 20 mg 12/11/20 08:00 Lutein [Lutein] PO DAILY [facility] Departure - Departure Time of Disposition: 17:27 Disposition: Admitted As Inpatient 67 Condition: Fair Clinical Impression: UTI, Urinary tract infectious disease, Sepsis due to urinary tract infection, Renal insufficiency - Discharge Information *PRESCRIPTION DRUG MONITORING PROGRAM REVIEWED*: Not Applicable *COPY OF PRESCRIPTION DRUG MONITORING REPORT IN PATIENT JESSICA: Not Applicable - My Orders Last 24 Hours: My Active Orders 12/10/20 16:29 Blood Culture x2 Reflex Set [OM.PC] Stat 12/10/20 16:35 CULTURE BLOOD [BC] Stat 12/10/20 16:40 CULTURE BLOOD [BC] Stat - Assessment/Plan Admission H&P: Please use this note as an admission H&P Last 24 Hours: My Active Orders 12/10/20 16:29 Blood Culture x2 Reflex Set [OM.PC] Stat 12/10/20 16:35 CULTURE BLOOD [BC] Stat 12/10/20 16:40 CULTURE BLOOD [BC] Stat Plan: PLEASE SEE RN NOTE FOR PFSH
[2020-12-10] MEDS ORDERED: Ondansetron 4 MG/2 ML SDV IV PRN (17:55)
[2020-12-10] MEDS ORDERED: Polyethylene Glycol 3350 Powder 17 GM Packet PO PRN (17:55)
[2020-12-10] MEDS ORDERED: Magnesium Hydroxide 400 MG/5 ML Susp 30 ML Cup PO PRN (17:55)
[2020-12-10] MEDS ORDERED: Ibuprofen 200 MG Tab PO PRN (17:55)
[2020-12-10] MEDS ORDERED: Acetaminophen 325 MG Tab PO PRN (17:55)
[2020-12-10] MEDS ORDERED: Docusate Sodium 100 MG Cap PO PRN (17:55)
[2020-12-10] MEDS ORDERED: Bisacodyl 10 MG Supp RECTAL PRN (17:55)
[2020-12-10] MEDS ORDERED: Enoxaparin 30 MG/0.3 ML Syringe SUBCUT SCH ×2 (18:00→18:30)
[2020-12-10] MEDS ORDERED: cefTRIAXone 1 GM Vial IVPUSH SCH (18:00)
[2020-12-10] MEDS ORDERED: Sodium Chloride 0.9% 500 ML IV SCH (18:00)
[2020-12-10] MEDS ORDERED: Sodium Chloride 0.9% 1,000 ML IV SCH (18:00)
[2020-12-10] MEDS: metFORMIN 500 MG Tab PO SCH (20:01)
[2020-12-10] MEDS: Carbidopa/Levodopa 25-100 MG Tab PO SCH (20:02)
[2020-12-10] MEDS: glipiZIDE 5 MG Tab.ER PO SCH (20:02)
[2020-12-10] MEDS: Enoxaparin 30 MG/0.3 ML Syringe SUBCUT SCH (20:03)
[2020-12-10] MEDS: Latanoprost 0.005% Ophth Soln 2.5 ML Bottle EYEBOTH SCH (20:03)
[2020-12-11] MEDS ORDERED: Losartan 100 MG Tab PO SCH (08:00)
[2020-12-11] MEDS ORDERED: Non-Formulary Medication 1 Each (Lutein [Lutein] 20 MG Capsule) PO SCH (08:00)
[2020-12-11] MEDS: Carbidopa/Levodopa 25-100 MG Tab PO SCH ×2 (08:15→19:38)
[2020-12-11] MEDS: Clopidogrel 75 MG Tab PO SCH (08:16)
[2020-12-11] MEDS: metFORMIN 500 MG Tab PO SCH ×2 (08:16→19:38)
[2020-12-11] MEDS: glipiZIDE 5 MG Tab.ER PO SCH ×2 (08:16→19:38)
[2020-12-11] MEDS: Oxybutynin 5 MG Tab.ER PO SCH (08:16)
[2020-12-11] MEDS: Losartan 100 MG Tab PO SCH (08:30)
[2020-12-11] MEDS: Hydrochlorothiazide 12.5 MG Cap PO SCH (08:30)
[2020-12-11] MEDS: Timolol Maleate 0.5% Ophth Soln 5 ML Bottle EYELF SCH (09:07)
--- NOTE | 2020-12-11 10:45 | PCM.PN ---
- General Info Date of Service: 12/11/20 Subjective Update: UNABLE TO OBTAIN ROS. PATIENT WILL NOT ANSWER MY QUESTIONS. SHE IS CONFUSED. NO CHANGE FROM ADMISSION. - Review of Systems Systems Review Comment:: UNABLE TO OBTAIN ROS DUE TO PATIENT CONFUSION AND WILL NOT ANSWER MY QUESTIONS, NO CHANGE FROM ER ADMISSION. - Patient Data Vitals - Most Recent: Last Vital Signs Temp 98.1 F 12/11/20 08:00 Pulse 68 12/11/20 08:00 Resp 14 12/11/20 08:00 BP 107/49 L 12/11/20 08:00 Pulse Ox 95 12/11/20 08:00 Weight - Most Recent: 171 lb 8 oz Lab Results Last 24 Hours: Laboratory Results - last 24 hr 12/10/20 12/10/20 12/10/20 Range/Units 16:40 16:40 16:40 WBC 14.9 H (4.0-11.0) 10^3/uL RBC 3.30 L (4.00-5.50) x10^6/uL Hgb 10.3 L (12.0-16.0) g/dL Hct 31.0 L (37.0-47.0) % MCV 93.9 (83.0-97.0) fL MCH 31.2 (27.0-32.0) pg MCHC 33.2 (32.0-36.0) g/dL RDW Coeff of Andres 13.7 (11.0-15.0) % Plt Count 400 (150-400) 10^3/uL Immature Gran % (Auto) 0.3 (0.0-4.9) % Neut % (Auto) 68.1 (41-71) % Lymph % (Auto) 21.4 L (24-44) % Stephens % (Auto) 9.5 (0-10) % Eos % (Auto) 0.4 (0-6) % Baso % (Auto) 0.3 (0-1) % Neut # (Auto) 10.17 H (1.80-8.00) x10^3/uL Lymph # (Auto) 3.19 (0.60-5.00) 10^3/uL Stephens # (Auto) 1.41 (0.00-1.50) 10^3/uL Eos # (Auto) 0.06 (0.00-1.50) 10^3/uL Baso # (Auto) 0.05 (0.00-0.50) 10^3/uL Immature Gran # (Auto) 0.04 (0.00-0.49) 10^3/uL Sodium 137 (136-145) mEq/L Potassium 4.7 (3.5-5.0) mEq/L Chloride 97 L (98-106) mEq/L Carbon Dioxide 27 (21-32) mmol/L BUN 43 H D (7-18) mg/dL Creatinine 1.6 H D (0.6-1.0) mg/dL Est Cr Clr Drug Dosing 18.85 mL/min Estimated GFR (MDRD) 30 L (>=60) mL/min Glucose 170 H D (75-99) mg/dL Lactic Acid 2.9 H (0.4-2.0) mmol/L Calcium 10.4 H (8.4-10.1) mg/dL C-Reactive Protein (0.2-0.8) mg/dL 12/11/20 12/11/20 12/11/20 Range/Units 06:55 06:55 06:55 WBC 11.7 H (4.0-11.0) 10^3/uL RBC 2.83 L (4.00-5.50) x10^6/uL Hgb 8.8 L (12.0-16.0) g/dL Hct 26.2 L (37.0-47.0) % MCV 92.6 (83.0-97.0) fL MCH 31.1 (27.0-32.0) pg MCHC 33.6 (32.0-36.0) g/dL RDW Coeff of Andres 13.6 (11.0-15.0) % Plt Count 357 (150-400) 10^3/uL Immature Gran % (Auto) 0.2 (0.0-4.9) % Neut % (Auto) 64.3 (41-71) % Lymph % (Auto) 23.2 L (24-44) % Stephens % (Auto) 11.1 H (0-10) % Eos % (Auto) 0.9 (0-6) % Baso % (Auto) 0.3 (0-1) % Neut # (Auto) 7.50 (1.80-8.00) x10^3/uL Lymph # (Auto) 2.70 (0.60-5.00) 10^3/uL Stephens # (Auto) 1.29 (0.00-1.50) 10^3/uL Eos # (Auto) 0.11 (0.00-1.50) 10^3/uL Baso # (Auto) 0.03 (0.00-0.50) 10^3/uL Immature Gran # (Auto) 0.02 (0.00-0.49) 10^3/uL Sodium 138 (136-145) mEq/L Potassium 4.0 (3.5-5.0) mEq/L Chloride 101 (98-106) mEq/L Carbon Dioxide 26 (21-32) mmol/L BUN 39 H (7-18) mg/dL Creatinine 1.3 H (0.6-1.0) mg/dL Est Cr Clr Drug Dosing 23.20 mL/min Estimated GFR (MDRD) 39 L (>=60) mL/min Glucose 65 L D (75-99) mg/dL Lactic Acid 1.4 (0.4-2.0) mmol/L Calcium 9.1 (8.4-10.1) mg/dL C-Reactive Protein 14.1 H (0.2-0.8) mg/dL Med Orders - Current: Current Medications Acetaminophen (Acetaminophen 325 Mg Tab) 650 mg PO Q4H PRN PRN Reason: Pain (Mild 1-3)/fever Bisacodyl (Bisacodyl 10 Mg Supp) 10 mg RECTAL DAILY PRN PRN Reason: Constipation Carbidopa/Levodopa (Carbidopa/Levodopa 25-100 Mg Tab) 1.5 tab PO BID [facility] Last Admin: 12/11/20 08:15 Dose: 1.5 tab Documented by: Ceftriaxone Sodium (Ceftriaxone 1 Gm Vial) 1 gm IVPUSH Q24H [facility] Last Admin: 12/10/20 18:15 Dose: 1 gm Documented by: Clopidogrel Bisulfate (Clopidogrel 75 Mg Tab) 75 mg PO DAILY [facility] Last Admin: 12/11/20 08:16 Dose: 75 mg Documented by: Docusate Sodium (Docusate Sodium 100 Mg Cap) 100 mg PO BID PRN PRN Reason: Constipation Enoxaparin Sodium (Enoxaparin 30 Mg/0.3 Ml Syringe) 30 mg SUBCUT Q24H [facility] Last Admin: 12/10/20 20:03 Dose: 30 mg Documented by: Glipizide (Glipizide 5 Mg Tab.Er) 10 mg PO BID [facility] Last Admin: 12/11/20 08:16 Dose: 10 mg Documented by: Hydrochlorothiazide (Hydrochlorothiazide 12.5 Mg Cap) 12.5 mg PO DAILY [facility] Last Admin: 12/11/20 08:30 Dose: Not Given Documented by: Sodium Chloride (Normal Saline) 1,000 mls @ 60 mls/hr IV ASDIRECTED [facility] Stop: 12/11/20 10:39 Last Admin: 12/10/20 18:15 Dose: 60 mls/hr Documented by: Ibuprofen (Ibuprofen 200 Mg Tab) 600 mg PO Q6H PRN PRN Reason: Pain (mild 1-3) Latanoprost (Latanoprost 0.005% Ophth Soln 2.5 Ml Bottle) 0 ml EYEBOTH BEDTIME [facility] Last Admin: 12/10/20 20:03 Dose: 1 drop Documented by: Losartan Potassium (Losartan 100 Mg Tab) 100 mg PO DAILY [facility] Last Admin: 12/11/20 08:30 Dose: Not Given Documented by: Losartan Potassium (Losartan 100 Mg Tab) 100 mg PO DAILY [facility] Last Admin: 12/11/20 08:30 Dose: Not Given Documented by: Magnesium Hydroxide (Magnesium Hydroxide 400 Mg/5 Ml Susp 30 Ml Cup) 30 ml PO DAILY PRN PRN Reason: Constipation Metformin HCl (Metformin 500 Mg Tab) 1,000 mg PO BID [facility] Last Admin: 12/11/20 08:16 Dose: 1,000 mg Documented by: Ondansetron HCl (Ondansetron 4 Mg/2 Ml Sdv) 4 mg IV Q6H PRN PRN Reason: Nausea/Vomiting Oxybutynin Chloride (Oxybutynin 5 Mg Tab.Er) 5 mg PO DAILY [facility] Last Admin: 12/11/20 08:16 Dose: 5 mg Documented by: Polyethylene Glycol (Polyethylene Glycol 3350 Powder 17 Gm Packet) 17 gm PO DAILY PRN PRN Reason: Constipation Timolol Maleate (Timolol Maleate 0.5% Ophth Soln 5 Ml Bottle) 0 ml EYELF DAILY [facility] Last Admin: 12/11/20 09:07 Dose: 1 drop Documented by: Discontinued Medications Enoxaparin Sodium (Enoxaparin 30 Mg/0.3 Ml Syringe) 30 mg SUBCUT Q24H [facility] Last Admin: 12/10/20 18:57 Dose: Not Given Documented by: Enoxaparin Sodium (Enoxaparin 30 Mg/0.3 Ml Syringe) 30 mg SUBCUT Q24H [facility] Sodium Chloride (Normal Saline) 500 mls @ 500 mls/hr IV .[facility] Last Admin: 12/10/20 18:15 Dose: 500 mls/hr Documented by: Non-Formulary Medication (Calcium Carb/D3/Magnesium/Zinc [Raghu Mag Zinc-D Tablet]) 1 tab PO DAILY [facility] Non-Formulary Medication (Iron [Iron]) 1 tab PO DAILY [facility] Non-Formulary Medication (Lutein [Lutein]) 20 mg PO DAILY [facility] - Exam General: Alert, No Acute Distress Neck: Supple, Trachea Midline, No JVD Lungs: Clear to Auscultation, Normal Respiratory Effort. No: Decreased Breath Sounds, Crackles, Rales, Rhonchi, Rub, Stridor, Wheezing Cardiovascular: Regular Rate, Regular Rhythm GI/Abdominal Exam: Soft, Non-Tender Back Exam: Normal Inspection Extremities: Normal Inspection, Non-Tender, No Pedal Edema, Normal Capillary Refill Peripheral Pulses: 2+: Radial (L), Radial (R), Posterior Tibial (L), Posterior Tibial (R), Dorsalis Pedis (L), Dorsalis Pedis (R) Skin: Warm, Dry, Intact Neurological: Other (Confused. Does eye open, eye follow me. She does say some words, but they do not make sense like ER admit. She has hx of dementia. ) Psy/Mental Status: Alert - Patient Data Lab Results Last 24 hrs: Laboratory Results - last 24 hr 12/10/20 12/10/20 12/10/20 Range/Units 16:40 16:40 16:40 WBC 14.9 H (4.0-11.0) 10^3/uL RBC 3.30 L (4.00-5.50) x10^6/uL Hgb 10.3 L (12.0-16.0) g/dL Hct 31.0 L (37.0-47.0) % MCV 93.9 (83.0-97.0) fL MCH 31.2 (27.0-32.0) pg MCHC 33.2 (32.0-36.0) g/dL RDW Coeff of Andres 13.7 (11.0-15.0) % Plt Count 400 (150-400) 10^3/uL Immature Gran % (Auto) 0.3 (0.0-4.9) % Neut % (Auto) 68.1 (41-71) % Lymph % (Auto) 21.4 L (24-44) % Stephens % (Auto) 9.5 (0-10) % Eos % (Auto) 0.4 (0-6) % Baso % (Auto) 0.3 (0-1) % Neut # (Auto) 10.17 H (1.80-8.00) x10^3/uL Lymph # (Auto) 3.19 (0.60-5.00) 10^3/uL Stephens # (Auto) 1.41 (0.00-1.50) 10^3/uL Eos # (Auto) 0.06 (0.00-1.50) 10^3/uL Baso # (Auto) 0.05 (0.00-0.50) 10^3/uL Immature Gran # (Auto) 0.04 (0.00-0.49) 10^3/uL Sodium 137 (136-145) mEq/L Potassium 4.7 (3.5-5.0) mEq/L Chloride 97 L (98-106) mEq/L Carbon Dioxide 27 (21-32) mmol/L BUN 43 H D (7-18) mg/dL Creatinine 1.6 H D (0.6-1.0) mg/dL Est Cr Clr Drug Dosing 18.85 mL/min Estimated GFR (MDRD) 30 L (>=60) mL/min Glucose 170 H D (75-99) mg/dL Lactic Acid 2.9 H (0.4-2.0) mmol/L Calcium 10.4 H (8.4-10.1) mg/dL C-Reactive Protein (0.2-0.8) mg/dL 12/11/20 12/11/20 12/11/20 Range/Units 06:55 06:55 06:55 WBC 11.7 H (4.0-11.0) 10^3/uL RBC 2.83 L (4.00-5.50) x10^6/uL Hgb 8.8 L (12.0-16.0) g/dL Hct 26.2 L (37.0-47.0) % MCV 92.6 (83.0-97.0) fL MCH 31.1 (27.0-32.0) pg MCHC 33.6 (32.0-36.0) g/dL RDW Coeff of Andres 13.6 (11.0-15.0) % Plt Count 357 (150-400) 10^3/uL Immature Gran % (Auto) 0.2 (0.0-4.9) % Neut % (Auto) 64.3 (41-71) % Lymph % (Auto) 23.2 L (24-44) % Stephens % (Auto) 11.1 H (0-10) % Eos % (Auto) 0.9 (0-6) % Baso % (Auto) 0.3 (0-1) % Neut # (Auto) 7.50 (1.80-8.00) x10^3/uL Lymph # (Auto) 2.70 (0.60-5.00) 10^3/uL Stephens # (Auto) 1.29 (0.00-1.50) 10^3/uL Eos # (Auto) 0.11 (0.00-1.50) 10^3/uL Baso # (Auto) 0.03 (0.00-0.50) 10^3/uL Immature Gran # (Auto) 0.02 (0.00-0.49) 10^3/uL Sodium 138 (136-145) mEq/L Potassium 4.0 (3.5-5.0) mEq/L Chloride 101 (98-106) mEq/L Carbon Dioxide 26 (21-32) mmol/L BUN 39 H (7-18) mg/dL Creatinine 1.3 H (0.6-1.0) mg/dL Est Cr Clr Drug Dosing 23.20 mL/min Estimated GFR (MDRD) 39 L (>=60) mL/min Glucose 65 L D (75-99) mg/dL Lactic Acid 1.4 (0.4-2.0) mmol/L Calcium 9.1 (8.4-10.1) mg/dL C-Reactive Protein 14.1 H (0.2-0.8) mg/dL Result Diagrams: 12/11/20 06:55 12/11/20 06:55 Sepsis Event Note - Evaluation Sepsis Screening Result: No Definite Risk - Focused Exam Vital Signs: Vital Signs Temp Pulse Resp BP Pulse Ox 12/11/20 08:00 98.1 F 68 14 107/49 L 95 12/11/20 04:00 98.9 F 85 18 129/76 94 L 12/10/20 23:54 97.8 F 85 18 105/68 97 - Problem List Review Problem List Initiated/Reviewed/Updated: Yes - My Orders Last 24 Hours: My Active Orders 12/10/20 16:29 Blood Culture x2 Reflex Set [OM.PC] Stat 12/10/20 16:35 CULTURE BLOOD [BC] Stat 12/10/20 16:40 CULTURE BLOOD [BC] Stat 12/10/20 17:37 Resuscitation Status Routine 12/10/20 17:55 Acetaminophen [TylenoL] 650 mg PO Q4H PRN Docusate Sodium [Colace] 100 mg PO BID PRN Ibuprofen [Motrin] 600 mg PO Q6H PRN Magnesium Hydroxide [Milk of Magnesia] 30 ml PO DAILY PRN Ondansetron [Zofran] 4 mg IV Q6H PRN bisacodyL [Dulcolax] 10 mg RECTAL DAILY PRN polyethylene glycoL 3350 [MiraLAX] 17 gm PO DAILY PRN 12/10/20 17:55 Patient Status [ADT] Routine Antiembolic Devices [RC] 1000,2200 Notify Provider Vital Signs [RC] .PRN Oxygen Therapy [RC] .PRN Up With Assistance [RC] .PRN Up to Chair [RC] .PRN Vital Signs [RC] 0000,0400,0800,1200,1600,2000 Antiembolic Hose [OM.PC] Per Unit Routine 12/10/20 Dinner Consistent Carbohydrate Diet [DIET] Sodium Chloride 0.9% [Normal Saline] 1,000 ml IV ASDIRECTED cefTRIAXone [Rocephin] 1 gm IVPUSH Q24H 12/10/20 20:00 Carbidopa/Levodopa [Sinemet 25-100 mg] 1.5 tab PO BID Enoxaparin [Lovenox] 30 mg SUBCUT Q24H Latanoprost [Xalatan 0.005% Ophth Soln] 0 ml EYEBOTH BEDTIME glipiZIDE [Glucotrol XL] 10 mg PO BID metFORMIN [Glucophage] 1,000 mg PO BID 12/11/20 08:00 Clopidogrel [Plavix] 75 mg PO DAILY Losartan [Cozaar] 100 mg PO DAILY Losartan [Cozaar] 100 mg PO DAILY Oxybutynin [Oxybutynin ER] 5 mg PO DAILY hydroCHLOROthiazide 12.5 mg PO DAILY timoloL maleate [Timoptic 0.5% Ophth Soln] 0 ml EYELF DAILY 12/12/20 05:00 BASIC METABOLIC PANEL,BMP [CHEM] DAILY C-REACTIVE PROTEIN [CHEM] DAILY CBC WITH AUTO DIFF [HEME] DAILY LACTIC ACID [CHEM] DAILY 12/13/20 05:00 BASIC METABOLIC PANEL,BMP [CHEM] DAILY C-REACTIVE PROTEIN [CHEM] DAILY CBC WITH AUTO DIFF [HEME] DAILY LACTIC ACID [CHEM] DAILY - Plan Plan:: 12/11/20 10:00am This patient was admitted last night for UTI with possible Sepsis. Patient had wbc, lactic acid, CR elevation. Patient has history of dementia, but son reported patient was more confused and drowsy than normal. Today, the patient is laying in bed. She is drowsy, but easily to arouse. Patient labs today show improvement with wbc 11.7, hgb 8.8, ch 101, bun 39, cr 1.3, lactic acid 1.4, crp 14.1. The patient BP this morning is 107/49 held BP meds, HR 68, T 98.1, R 14, o2 95% RA. Patient is a little drowsy today, laying in bed resting. Does eye open and follow. Her BS was 65 at lab draw, RN gave her a muffin to eat and juice. She ate and drank. Recheck BS is now 77. Giving more juice at this time. ADRIANA RAMACHANDRAN will monitor this and get another accucheck to keep BS elvated. I will order accuchecks to be done scheduled. The son Tab called and we spoke about the patient and her labs, urine culture and current plan of care. He has no questions at this time. While this patient labs have improved, her BP and BS has been low today. I believe she is septic. She is a DNR. This patient may not live through this admission. The patient palliative care is a possible outcome for this patient. Will continue current treatment and await cx results or urine. 12/11/20 02:00pm The patient sat up and ate lunch today by feeding herself. Her BS after lunch was 91.
[2020-12-11] MEDS: cefTRIAXone 1 GM Vial IVPUSH SCH (19:36)
[2020-12-11] MEDS: Enoxaparin 30 MG/0.3 ML Syringe SUBCUT SCH (19:39)
[2020-12-11] MEDS: Latanoprost 0.005% Ophth Soln 2.5 ML Bottle EYEBOTH SCH (19:50)
[2020-12-12] MEDS: Clopidogrel 75 MG Tab PO SCH (08:10)
[2020-12-12] MEDS: Carbidopa/Levodopa 25-100 MG Tab PO SCH ×2 (08:10→19:37)
[2020-12-12] MEDS: Oxybutynin 5 MG Tab.ER PO SCH (08:11)
[2020-12-12] MEDS: Losartan 100 MG Tab PO SCH ×2 (08:11→08:16)
[2020-12-12] MEDS: metFORMIN 500 MG Tab PO SCH ×2 (08:11→19:36)
[2020-12-12] MEDS: glipiZIDE 5 MG Tab.ER PO SCH (08:12)
[2020-12-12] MEDS: Hydrochlorothiazide 12.5 MG Cap PO SCH (08:12)
[2020-12-12] MEDS: Timolol Maleate 0.5% Ophth Soln 5 ML Bottle EYELF SCH (08:16)
--- NOTE | 2020-12-12 10:06 | PCM.PN ---
- General Info Date of Service: 12/12/20 Functional Status: Reports: Pain Controlled, Tolerating Diet (eatin well this morning), Other (son at bedside) - Review of Systems General: Reports: No Symptoms HEENT: Reports: No Symptoms Pulmonary: Reports: No Symptoms Cardiovascular: Reports: No Symptoms Gastrointestinal: Reports: No Symptoms Genitourinary: Reports: No Symptoms Musculoskeletal: Reports: No Symptoms Skin: Reports: No Symptoms Neurological: Reports: Confusion Psychiatric: Reports: No Symptoms - Patient Data Vitals - Most Recent: Last Vital Signs Temp 97.5 F 12/12/20 08:00 Pulse 82 12/12/20 08:00 Resp 18 12/12/20 08:00 BP 150/52 H 12/12/20 08:16 Pulse Ox 97 12/12/20 08:00 Weight - Most Recent: 171 lb 8 oz Lab Results Last 24 Hours: Laboratory Results - last 24 hr 12/11/20 12/11/20 12/11/20 Range/Units 10:57 13:44 19:48 WBC (4.0-11.0) 10^3/uL RBC (4.00-5.50) x10^6/uL Hgb (12.0-16.0) g/dL Hct (37.0-47.0) % MCV (83.0-97.0) fL MCH (27.0-32.0) pg MCHC (32.0-36.0) g/dL RDW Coeff of Andres (11.0-15.0) % Plt Count (150-400) 10^3/uL Immature Gran % (Auto) (0.0-4.9) % Neut % (Auto) (41-71) % Lymph % (Auto) (24-44) % Kinney % (Auto) (0-10) % Eos % (Auto) (0-6) % Baso % (Auto) (0-1) % Neut # (Auto) (1.80-8.00) x10^3/uL Lymph # (Auto) (0.60-5.00) 10^3/uL Kinney # (Auto) (0.00-1.50) 10^3/uL Eos # (Auto) (0.00-1.50) 10^3/uL Baso # (Auto) (0.00-0.50) 10^3/uL Immature Gran # (Auto) (0.00-0.49) 10^3/uL Sodium (136-145) mEq/L Potassium (3.5-5.0) mEq/L Chloride (98-106) mEq/L Carbon Dioxide (21-32) mmol/L BUN (7-18) mg/dL Creatinine (0.6-1.0) mg/dL Est Cr Clr Drug Dosing mL/min Estimated GFR (MDRD) (>=60) mL/min Glucose (75-99) mg/dL POC Glucose 77 91 133 H (75-105) mg/dL Lactic Acid (0.4-2.0) mmol/L Calcium (8.4-10.1) mg/dL C-Reactive Protein (0.2-0.8) mg/dL 12/12/20 12/12/20 12/12/20 Range/Units 07:15 07:15 07:15 WBC 10.8 (4.0-11.0) 10^3/uL RBC 2.85 L (4.00-5.50) x10^6/uL Hgb 8.8 L (12.0-16.0) g/dL Hct 26.3 L (37.0-47.0) % MCV 92.3 (83.0-97.0) fL MCH 30.9 (27.0-32.0) pg MCHC 33.5 (32.0-36.0) g/dL RDW Coeff of Andres 13.6 (11.0-15.0) % Plt Count 360 (150-400) 10^3/uL Immature Gran % (Auto) 0.3 (0.0-4.9) % Neut % (Auto) 72.1 H (41-71) % Lymph % (Auto) 16.6 L (24-44) % Kinney % (Auto) 10.1 H (0-10) % Eos % (Auto) 0.6 (0-6) % Baso % (Auto) 0.3 (0-1) % Neut # (Auto) 7.77 (1.80-8.00) x10^3/uL Lymph # (Auto) 1.79 (0.60-5.00) 10^3/uL Kinney # (Auto) 1.09 (0.00-1.50) 10^3/uL Eos # (Auto) 0.07 (0.00-1.50) 10^3/uL Baso # (Auto) 0.03 (0.00-0.50) 10^3/uL Immature Gran # (Auto) 0.03 (0.00-0.49) 10^3/uL Sodium 138 (136-145) mEq/L Potassium 4.0 (3.5-5.0) mEq/L Chloride 102 (98-106) mEq/L Carbon Dioxide 24 (21-32) mmol/L BUN 36 H (7-18) mg/dL Creatinine 1.1 H (0.6-1.0) mg/dL Est Cr Clr Drug Dosing 27.42 mL/min Estimated GFR (MDRD) 47 L (>=60) mL/min Glucose 58 L (75-99) mg/dL POC Glucose (75-105) mg/dL Lactic Acid 1.0 (0.4-2.0) mmol/L Calcium 8.9 (8.4-10.1) mg/dL C-Reactive Protein 11.3 H (0.2-0.8) mg/dL Armando Results Last 24 Hours: Microbiology 12/10/20 16:40 Aerobic Blood Culture - Preliminary Blood - Venous NO GROWTH AFTER 1 DAY Anaerobic Blood Culture - Preliminary NO GROWTH AFTER 1 DAY 12/10/20 16:35 Aerobic Blood Culture - Preliminary Blood - Venous - Lab Draw NO GROWTH AFTER 1 DAY Anaerobic Blood Culture - Preliminary NO GROWTH AFTER 1 DAY Med Orders - Current: Current Medications Acetaminophen (Acetaminophen 325 Mg Tab) 650 mg PO Q4H PRN PRN Reason: Pain (Mild 1-3)/fever Bisacodyl (Bisacodyl 10 Mg Supp) 10 mg RECTAL DAILY PRN PRN Reason: Constipation Carbidopa/Levodopa (Carbidopa/Levodopa 25-100 Mg Tab) 1.5 tab PO BID [facility] Last Admin: 12/12/20 08:10 Dose: 1.5 tab Documented by: Ceftriaxone Sodium (Ceftriaxone 1 Gm Vial) 1 gm IVPUSH Q24H [facility] Last Admin: 12/11/20 19:36 Dose: 1 gm Documented by: Clopidogrel Bisulfate (Clopidogrel 75 Mg Tab) 75 mg PO DAILY [facility] Last Admin: 12/12/20 08:10 Dose: 75 mg Documented by: Docusate Sodium (Docusate Sodium 100 Mg Cap) 100 mg PO BID PRN PRN Reason: Constipation Enoxaparin Sodium (Enoxaparin 30 Mg/0.3 Ml Syringe) 30 mg SUBCUT Q24H [facility] Last Admin: 12/11/20 19:39 Dose: 30 mg Documented by: Glipizide (Glipizide 2.5 Mg Tab.Er) 2.5 mg PO DAILY [facility] Hydrochlorothiazide (Hydrochlorothiazide 12.5 Mg Cap) 12.5 mg PO DAILY [facility] Last Admin: 12/12/20 08:12 Dose: 12.5 mg Documented by: Ibuprofen (Ibuprofen 200 Mg Tab) 600 mg PO Q6H PRN PRN Reason: Pain (mild 1-3) Latanoprost (Latanoprost 0.005% Ophth Soln 2.5 Ml Bottle) 0 ml EYEBOTH BEDTIME [facility] Last Admin: 12/11/20 19:50 Dose: 1 drop Documented by: Losartan Potassium (Losartan 100 Mg Tab) 100 mg PO DAILY [facility] Last Admin: 12/12/20 08:11 Dose: 100 mg Documented by: Losartan Potassium (Losartan 100 Mg Tab) 100 mg PO DAILY [facility] Last Admin: 12/12/20 08:16 Dose: 100 mg Documented by: Magnesium Hydroxide (Magnesium Hydroxide 400 Mg/5 Ml Susp 30 Ml Cup) 30 ml PO DAILY PRN PRN Reason: Constipation Metformin HCl (Metformin 500 Mg Tab) 1,000 mg PO BID [facility] Last Admin: 12/12/20 08:11 Dose: 1,000 mg Documented by: Ondansetron HCl (Ondansetron 4 Mg/2 Ml Sdv) 4 mg IV Q6H PRN PRN Reason: Nausea/Vomiting Oxybutynin Chloride (Oxybutynin 5 Mg Tab.Er) 5 mg PO DAILY [facility] Last Admin: 12/12/20 08:11 Dose: 5 mg Documented by: Polyethylene Glycol (Polyethylene Glycol 3350 Powder 17 Gm Packet) 17 gm PO DAILY PRN PRN Reason: Constipation Timolol Maleate (Timolol Maleate 0.5% Ophth Soln 5 Ml Bottle) 0 ml EYELF DAILY [facility] Last Admin: 12/12/20 08:16 Dose: 1 drop Documented by: Discontinued Medications Ceftriaxone Sodium (Ceftriaxone 1 Gm Vial) 1 gm IVPUSH Q24H [facility] Last Admin: 12/10/20 18:15 Dose: 1 gm Documented by: Enoxaparin Sodium (Enoxaparin 30 Mg/0.3 Ml Syringe) 30 mg SUBCUT Q24H [facility] Last Admin: 12/10/20 18:57 Dose: Not Given Documented by: Enoxaparin Sodium (Enoxaparin 30 Mg/0.3 Ml Syringe) 30 mg SUBCUT Q24H [facility] Glipizide (Glipizide 5 Mg Tab.Er) 10 mg PO BID [facility] Last Admin: 12/12/20 08:12 Dose: 10 mg Documented by: Sodium Chloride (Normal Saline) 500 mls @ 500 mls/hr IV .BOLUS [facility] Last Admin: 12/10/20 18:15 Dose: 500 mls/hr Documented by: Sodium Chloride (Normal Saline) 1,000 mls @ 60 mls/hr IV ASDIRECTED [facility] Stop: 12/11/20 10:39 Last Admin: 12/10/20 18:15 Dose: 60 mls/hr Documented by: Losartan Potassium (Losartan 100 Mg Tab) 100 mg PO DAILY [facility] Last Admin: 12/11/20 08:30 Dose: Not Given Documented by: Non-Formulary Medication (Calcium Carb/D3/Magnesium/Zinc [Raghu Mag Zinc-D Tablet]) 1 tab PO DAILY [facility] Non-Formulary Medication (Iron [Iron]) 1 tab PO DAILY [facility] Non-Formulary Medication (Lutein [Lutein]) 20 mg PO DAILY [facility] - Exam General: Alert, Oriented (to self), Cooperative, No Acute Distress Lungs: Clear to Auscultation, Normal Respiratory Effort Cardiovascular: Regular Rate, Regular Rhythm GI/Abdominal Exam: Soft, Non-Tender Back Exam: Normal Inspection, Full Range of Motion Extremities: Normal Inspection, Normal Range of Motion, Non-Tender, No Pedal Edema, Normal Capillary Refill Peripheral Pulses: 2+: Radial (L), Radial (R), Posterior Tibial (L), Posterior Tibial (R), Dorsalis Pedis (L), Dorsalis Pedis (R) Skin: Warm, Dry, Intact Psy/Mental Status: Alert, Normal Affect, Normal Mood - Patient Data Lab Results Last 24 hrs: Laboratory Results - last 24 hr 12/11/20 12/11/20 12/11/20 Range/Units 10:57 13:44 19:48 WBC (4.0-11.0) 10^3/uL RBC (4.00-5.50) x10^6/uL Hgb (12.0-16.0) g/dL Hct (37.0-47.0) % MCV (83.0-97.0) fL MCH (27.0-32.0) pg MCHC (32.0-36.0) g/dL RDW Coeff of Andres (11.0-15.0) % Plt Count (150-400) 10^3/uL Immature Gran % (Auto) (0.0-4.9) % Neut % (Auto) (41-71) % Lymph % (Auto) (24-44) % Kinney % (Auto) (0-10) % Eos % (Auto) (0-6) % Baso % (Auto) (0-1) % Neut # (Auto) (1.80-8.00) x10^3/uL Lymph # (Auto) (0.60-5.00) 10^3/uL Kinney # (Auto) (0.00-1.50) 10^3/uL Eos # (Auto) (0.00-1.50) 10^3/uL Baso # (Auto) (0.00-0.50) 10^3/uL Immature Gran # (Auto) (0.00-0.49) 10^3/uL Sodium (136-145) mEq/L Potassium (3.5-5.0) mEq/L Chloride (98-106) mEq/L Carbon Dioxide (21-32) mmol/L BUN (7-18) mg/dL Creatinine (0.6-1.0) mg/dL Est Cr Clr Drug Dosing mL/min Estimated GFR (MDRD) (>=60) mL/min Glucose (75-99) mg/dL POC Glucose 77 91 133 H (75-105) mg/dL Lactic Acid (0.4-2.0) mmol/L Calcium (8.4-10.1) mg/dL C-Reactive Protein (0.2-0.8) mg/dL 12/12/20 12/12/20 12/12/20 Range/Units 07:15 07:15 07:15 WBC 10.8 (4.0-11.0) 10^3/uL RBC 2.85 L (4.00-5.50) x10^6/uL Hgb 8.8 L (12.0-16.0) g/dL Hct 26.3 L (37.0-47.0) % MCV 92.3 (83.0-97.0) fL MCH 30.9 (27.0-32.0) pg MCHC 33.5 (32.0-36.0) g/dL RDW Coeff of Andres 13.6 (11.0-15.0) % Plt Count 360 (150-400) 10^3/uL Immature Gran % (Auto) 0.3 (0.0-4.9) % Neut % (Auto) 72.1 H (41-71) % Lymph % (Auto) 16.6 L (24-44) % Kinney % (Auto) 10.1 H (0-10) % Eos % (Auto) 0.6 (0-6) % Baso % (Auto) 0.3 (0-1) % Neut # (Auto) 7.77 (1.80-8.00) x10^3/uL Lymph # (Auto) 1.79 (0.60-5.00) 10^3/uL Kinney # (Auto) 1.09 (0.00-1.50) 10^3/uL Eos # (Auto) 0.07 (0.00-1.50) 10^3/uL Baso # (Auto) 0.03 (0.00-0.50) 10^3/uL Immature Gran # (Auto) 0.03 (0.00-0.49) 10^3/uL Sodium 138 (136-145) mEq/L Potassium 4.0 (3.5-5.0) mEq/L Chloride 102 (98-106) mEq/L Carbon Dioxide 24 (21-32) mmol/L BUN 36 H (7-18) mg/dL Creatinine 1.1 H (0.6-1.0) mg/dL Est Cr Clr Drug Dosing 27.42 mL/min Estimated GFR (MDRD) 47 L (>=60) mL/min Glucose 58 L (75-99) mg/dL POC Glucose (75-105) mg/dL Lactic Acid 1.0 (0.4-2.0) mmol/L Calcium 8.9 (8.4-10.1) mg/dL C-Reactive Protein 11.3 H (0.2-0.8) mg/dL Result Diagrams: 12/12/20 07:15 12/12/20 07:15 Armando Results Last 24 hrs: Microbiology 12/10/20 16:40 Aerobic Blood Culture - Preliminary Blood - Venous NO GROWTH AFTER 1 DAY Anaerobic Blood Culture - Preliminary NO GROWTH AFTER 1 DAY 12/10/20 16:35 Aerobic Blood Culture - Preliminary Blood - Venous - Lab Draw NO GROWTH AFTER 1 DAY Anaerobic Blood Culture - Preliminary NO GROWTH AFTER 1 DAY Sepsis Event Note - Evaluation Sepsis Screening Result: No Definite Risk - Focused Exam Vital Signs: Vital Signs Temp Pulse Resp BP BP Pulse Ox 12/12/20 08:16 150/52 H 12/12/20 08:11 150/52 H 12/12/20 08:00 97.5 F 82 18 150/52 H 97 12/12/20 00:00 96.7 F L 84 18 130/66 96 - Problem List Review Problem List Initiated/Reviewed/Updated: Yes - My Orders Last 24 Hours: My Active Orders 12/11/20 11:49 Accu Check [Blood Glucose Check, Bedside] [RC] 0730,1130,1700 12/11/20 20:00 cefTRIAXone [Rocephin] 1 gm IVPUSH Q24H 12/12/20 08:15 Losartan [Cozaar] 100 mg PO DAILY 12/13/20 05:00 BASIC METABOLIC PANEL,BMP [CHEM] DAILY C-REACTIVE PROTEIN [CHEM] DAILY CBC WITH AUTO DIFF [HEME] DAILY LACTIC ACID [CHEM] DAILY 12/13/20 08:00 glipiZIDE [Glucotrol XL] 2.5 mg PO DAILY - Plan Plan:: 12/11/20 10:00am This patient was admitted last night for UTI with possible Sepsis. Patient had wbc, lactic acid, CR elevation. Patient has history of dementia, but son repo rted patient was more confused and drowsy than normal. Today, the patient is laying in bed. She is drowsy, but easily to arouse. Patient labs today show improvement with wbc 11.7, hgb 8.8, ch 101, bun 39, cr 1.3, lactic acid 1.4, crp 14.1. The patient BP this morning is 107/49 held BP meds, HR 68, T 98.1, R 14, o2 95% RA. Patient is a little drowsy today, laying in bed resting. Does eye open and follow. Her BS was 65 at lab draw, RN gave her a muffin to eat and juice. She ate and drank. Recheck BS is now 77. Giving more juice at this time. RN MADIE will monitor this and get another accucheck to keep BS elvated. I will order accuchecks to be done scheduled. The son Tab called and we spoke about the patient and her labs, urine culture and current plan of care. He has no questions at this time. While this patient labs have improved, her BP and BS has been low today. I believe she is septic. She is a DNR. This patient may not live through this admission. The patient palliative care is a possible outcome for this patient. Will continue current treatment and await cx results or urine. 12/11/20 02:00pm The patient sat up and ate lunch today by feeding herself. Her BS after lunch was 91. 12/12/20 09:45am This patient today is much improved. She is sitting up in the bed. She is eating her breakfast. She is talkative to me and staff. The other son is here at bedside and reports this is more of her baseline. Patient labs are improving as well today. Her wbc is 10.8, BUN 36, CR 1.1, CRP 1.3, GLU 58. She was eating after the BS 58. The patient is alert and oriented to self. Not place or time. The patient reports no complaints. I have the culture report back today. The option is Microbid. Patient renal function has improved enough to use this medication. Patient is on Glipizide. Her GFR is showing improvement but still less than 60. Her BS have been low. I have decreased the Glipizide to 2.5mg daily per recommended dosing for gfr less than 60. Patient BP is higher today and patient is no longer appearing possible sepsis. Blood cultures show no growth at this time. Will continue admission and abx. Possible discharge in the next 2 days.
[2020-12-12] MEDS: Nitrofurantoin Monohydrate/Macrocrystalline 100 MG Cap PO SCH (17:32)
[2020-12-12] MEDS: cefTRIAXone 1 GM Vial IVPUSH SCH (19:36)
[2020-12-12] MEDS: Enoxaparin 30 MG/0.3 ML Syringe SUBCUT SCH (19:37)
[2020-12-12] MEDS: Latanoprost 0.005% Ophth Soln 2.5 ML Bottle EYEBOTH SCH (19:59)
[2020-12-13] MEDS ORDERED: glipiZIDE 2.5 MG Tab.ER PO SCH (08:00)
[2020-12-13] MEDS: Nitrofurantoin Monohydrate/Macrocrystalline 100 MG Cap PO SCH (08:20)
[2020-12-13] MEDS: Losartan 100 MG Tab PO SCH ×2 (08:20→08:23)
[2020-12-13] MEDS: Carbidopa/Levodopa 25-100 MG Tab PO SCH (08:21)
[2020-12-13] MEDS: Hydrochlorothiazide 12.5 MG Cap PO SCH (08:21)
[2020-12-13] MEDS: metFORMIN 500 MG Tab PO SCH (08:21)
[2020-12-13] MEDS: Oxybutynin 5 MG Tab.ER PO SCH (08:22)
[2020-12-13] MEDS: Clopidogrel 75 MG Tab PO SCH (08:22)
[2020-12-13] MEDS: Timolol Maleate 0.5% Ophth Soln 5 ML Bottle EYELF SCH (08:26)
--- NOTE | 2020-12-13 09:37 | PCM.DCSUM1 ---
Discharge Summary - Hospital Course HPI Initial Comments: 12/08/20 0900am This patient was admitted for UTI r/o Urosepsis. This patient is alert, sitting up in bed eating breakfast. Her son is at bedside and reports remarkable improvement. The patient labs are improved. Patient is talking and communicating without difficulties. She has no complaints. I will discharge the patient back to the assisted today. I have decreased her Glipizide while in hospital. I will discontinue this at discharge. BS in the mornings have been 70s. NH will need to monitor her BS and discuss those with her PCP to see if they would like to increase that again. - Discharge Data Discharge Date: 12/13/20 Discharge Disposition: DC/Tfer to [facility] Condition: Fair - Referral to Home Health Primary Care Physician: Ger Clarke MD - Patient Instructions Diet: Usual Diet as Tolerated Activity: As Tolerated Driving: Do Not Drive Showering/Bathing: May Shower Notify Provider of: Fever, Increased Pain, Nausea and/or Vomiting Other/Special Instructions: Followup with your primary care provider in the next 7 days for recheck. Return to the ER for increased confusion, fever, vomiting. Antibiotic as prescribed. Discontinue Glipizide. Call PCP with abnormal blood sugars - Discharge Plan *PRESCRIPTION DRUG MONITORING PROGRAM REVIEWED*: Not Applicable *COPY OF PRESCRIPTION DRUG MONITORING REPORT IN PATIENT JESSICA: Not Applicable Prescriptions/Med Rec: Nitrofurantoin [place]/Macrocryst [Nitrofurantoin Somerset-MCR] 100 mg PO BIDMEALS #5 cap Home Medications: Home Meds Lutein 20 mg PO DAILY 06/18/14 [History] Valsartan/Hydrochlorothiazide [Valsartan-Hctz 160-12.5 mg Tab] 1 each PO DAILY 06/18/14 [History] metFORMIN [Glucophage] 1,000 mg PO BID 06/18/14 [History] timoloL maleate [Timoptic 0.5% Ocudose] 1 drop EYELF DAILY 06/18/14 [History] Carbidopa/Levodopa [Carbidopa-Levodopa 25-100] 1.5 tab PO BID 06/19/14 [History] Clopidogrel [Plavix] 75 mg PO DAILY #30 tablet 06/19/14 [Rx] Calcium Carb/D3/Magnesium/Zinc [Raghu Mag Zinc-D Tablet] 1 tab PO DAILY 05/14/16 [History] Iron 1 tab PO DAILY 05/14/16 [History] Multivitamin [Multi-Vitamin Daily] 1 tab PO DAILY 05/14/16 [History] Bimatoprost [LUMIGAN 0.01% Ophth Soln] 1 drop EYEBOTH BEDTIME 12/16/19 [History] Acetaminophen [Tylenol Extra Strength] 1,000 mg PO Q6H PRN tablet 01/19/20 [Rx] Docusate Sodium [Colace] 100 mg PO BID PRN cap 01/19/20 [Rx] Losartan [Cozaar] 100 mg PO DAILY tablet 01/19/20 [Rx] Oxybutynin [Oxybutynin ER] 5 mg PO DAILY tab.er 01/19/20 [Rx] polyethylene glycoL 3350 [MiraLAX] 17 gm PO DAILY PRN packet 01/19/20 [Rx] Magnesium Hydroxide [Milk of Magnesia] 30 ml PO DAILY PRN 12/10/20 [History] Promethazine HCl 2 tsp PO Q4H PRN 12/10/20 [History] bisacodyL [Dulcolax] 10 mg RECTAL DAILY PRN 12/10/20 [History] cefUROXime axetiL [Ceftin] 250 mg PO BID 12/10/20 [History] Nitrofurantoin [place]/Macrocryst [Nitrofurantoin [place]-MCR] 100 mg PO BIDMEALS #5 cap 12/13/20 [Rx] Patient Handouts: Urinary Tract Infection, Adult, [id number], Urosepsis, Adult Forms: ED Department Discharge Referrals: Ger Clarke MD [Primary Care Provider] - - Discharge Summary/Plan Comment DC Time >30 min.: No Total # of Minutes for Discharge Time: 15 - General Info Date of Service: 12/13/20 Functional Status: Reports: Pain Controlled, Tolerating Diet, Urinating - Review of Systems General: Reports: No Symptoms HEENT: Reports: No Symptoms Pulmonary: Reports: No Symptoms Cardiovascular: Reports: No Symptoms Gastrointestinal: Reports: No Symptoms Genitourinary: Reports: No Symptoms Musculoskeletal: Reports: No Symptoms Skin: Reports: No Symptoms Neurological: Reports: No Symptoms Psychiatric: Reports: No Symptoms - Patient Data Vitals - Most Recent: Last Vital Signs Temp 97.8 F 12/13/20 04:00 Pulse 82 12/13/20 04:00 Resp 18 10/18/21 04:00 BP 130/62 12/13/20 08:23 Pulse Ox 95 12/13/20 04:00 Weight - Most Recent: 171 lb 8 oz Lab Results - Last 24 hrs: Laboratory Results - last 24 hr 12/12/20 12/12/20 12/12/20 Range/Units 11:34 11:50 17:24 WBC (4.0-11.0) 10^3/uL RBC (4.00-5.50) x10^6/uL Hgb (12.0-16.0) g/dL Hct (37.0-47.0) % MCV (83.0-97.0) fL MCH (27.0-32.0) pg MCHC (32.0-36.0) g/dL RDW Coeff of Andres (11.0-15.0) % Plt Count (150-400) 10^3/uL Immature Gran % (Auto) (0.0-4.9) % Neut % (Auto) (41-71) % Lymph % (Auto) (24-44) % [place] % (Auto) (0-10) % Eos % (Auto) (0-6) % Baso % (Auto) (0-1) % Neut # (Auto) (1.80-8.00) x10^3/uL Lymph # (Auto) (0.60-5.00) 10^3/uL Somerset # (Auto) (0.00-1.50) 10^3/uL Eos # (Auto) (0.00-1.50) 10^3/uL Baso # (Auto) (0.00-0.50) 10^3/uL Immature Gran # (Auto) (0.00-0.49) 10^3/uL Sodium (136-145) mEq/L Potassium (3.5-5.0) mEq/L Chloride (98-106) mEq/L Carbon Dioxide (21-32) mmol/L BUN (7-18) mg/dL Creatinine (0.6-1.0) mg/dL Est Cr Clr Drug Dosing mL/min Estimated GFR (MDRD) (>=60) mL/min Glucose (75-99) mg/dL POC Glucose 119 H 123 H 190 H (75-105) mg/dL Lactic Acid (0.4-2.0) mmol/L Calcium (8.4-10.1) mg/dL C-Reactive Protein (0.2-0.8) mg/dL 12/13/20 12/13/20 12/13/20 Range/Units 06:55 06:55 06:55 WBC 8.7 (4.0-11.0) 10^3/uL RBC 2.75 L (4.00-5.50) x10^6/uL Hgb 8.7 L (12.0-16.0) g/dL Hct 25.8 L (37.0-47.0) % MCV 93.8 (83.0-97.0) fL MCH 31.6 (27.0-32.0) pg MCHC 33.7 (32.0-36.0) g/dL RDW Coeff of Andres 13.7 (11.0-15.0) % Plt Count 352 (150-400) 10^3/uL Immature Gran % (Auto) 0.1 (0.0-4.9) % Neut % (Auto) 56.9 (41-71) % Lymph % (Auto) 27.8 (24-44) % [place] % (Auto) 10.9 H (0-10) % Eos % (Auto) 3.7 (0-6) % Baso % (Auto) 0.6 (0-1) % Neut # (Auto) 4.94 (1.80-8.00) x10^3/uL Lymph # (Auto) 2.41 (0.60-5.00) 10^3/uL [place] # (Auto) 0.95 (0.00-1.50) 10^3/uL Eos # (Auto) 0.32 (0.00-1.50) 10^3/uL Baso # (Auto) 0.05 (0.00-0.50) 10^3/uL Immature Gran # (Auto) 0.01 (0.00-0.49) 10^3/uL Sodium 138 (136-145) mEq/L Potassium 3.9 (3.5-5.0) mEq/L Chloride 103 (98-106) mEq/L Carbon Dioxide 24 (21-32) mmol/L BUN 37 H (7-18) mg/dL Creatinine 1.2 H (0.6-1.0) mg/dL Est Cr Clr Drug Dosing 25.14 mL/min Estimated GFR (MDRD) 42 L (>=60) mL/min Glucose 74 L D (75-99) mg/dL POC Glucose (75-105) mg/dL Lactic Acid 2.0 (0.4-2.0) mmol/L Calcium 9.1 (8.4-10.1) mg/dL C-Reactive Protein 9.8 H (0.2-0.8) mg/dL BRIAN Results - Last 24 hrs: Microbiology 12/10/20 16:40 Aerobic Blood Culture - Preliminary Blood - Venous NO GROWTH AFTER 2 DAYS Anaerobic Blood Culture - Preliminary NO GROWTH AFTER 2 DAYS 12/10/20 16:35 Aerobic Blood Culture - Preliminary Blood - Venous - Lab Draw NO GROWTH AFTER 2 DAYS Anaerobic Blood Culture - Preliminary NO GROWTH AFTER 2 DAYS Med Orders - Current: Current Medications Acetaminophen (Acetaminophen 325 Mg Tab) 650 mg PO Q4H PRN PRN Reason: Pain (Mild 1-3)/fever Bisacodyl (Bisacodyl 10 Mg Supp) 10 mg RECTAL DAILY PRN PRN Reason: Constipation Carbidopa/Levodopa (Carbidopa/Levodopa 25-100 Mg Tab) 1.5 tab PO BID [facility], [facility] Last Admin: 12/13/20 08:21 Dose: 1.5 tab Documented by: Ceftriaxone Sodium (Ceftriaxone 1 Gm Vial) 1 gm IVPUSH Q24H [facility], [facility] Last Admin: 12/12/20 19:36 Dose: 1 gm Documented by: Clopidogrel Bisulfate (Clopidogrel 75 Mg Tab) 75 mg PO DAILY [facility] Last Admin: 12/13/20 08:22 Dose: 75 mg Documented by: Docusate Sodium (Docusate Sodium 100 Mg Cap) 100 mg PO BID PRN PRN Reason: Constipation Enoxaparin Sodium (Enoxaparin 30 Mg/0.3 Ml Syringe) 30 mg SUBCUT Q24H [facility], [facility] Last Admin: 12/12/20 19:37 Dose: 30 mg Documented by: Glipizide (Glipizide 2.5 Mg Tab.Er) 2.5 mg PO DAILY [facility] Last Admin: 12/13/20 08:22 Dose: 2.5 mg Documented by: Hydrochlorothiazide (Hydrochlorothiazide 12.5 Mg Cap) 12.5 mg PO DAILY [facility] Last Admin: 12/13/20 08:21 Dose: 12.5 mg Documented by: Ibuprofen (Ibuprofen 200 Mg Tab) 600 mg PO Q6H PRN PRN Reason: Pain (mild 1-3) Latanoprost (Latanoprost 0.005% Ophth Soln 2.5 Ml Bottle) 0 ml EYEBOTH BEDTIME [facility] Last Admin: 12/12/20 19:59 Dose: 1 drop Documented by: Losartan Potassium (Losartan 100 Mg Tab) 100 mg PO DAILY [facility] Last Admin: 12/13/20 08:20 Dose: 100 mg Documented by: Magnesium Hydroxide (Magnesium Hydroxide 400 Mg/5 Ml Susp 30 Ml Cup) 30 ml PO DAILY PRN PRN Reason: Constipation Metformin HCl (Metformin 500 Mg Tab) 1,000 mg PO BID [facility] Last Admin: 12/13/20 08:21 Dose: 1,000 mg Documented by: Nitrofurantoin Macrocrystals (Nitrofurantoin Monohydrate/Macrocrystalline 100 Mg Cap) 100 mg PO BIDMEALS [facility]1983 Stop: 12/16/20 23:00 Last Admin: 12/13/20 08:20 Dose: 100 mg Documented by: Ondansetron HCl (Ondansetron 4 Mg/2 Ml Sdv) 4 mg IV Q6H PRN PRN Reason: Nausea/Vomiting Oxybutynin Chloride (Oxybutynin 5 Mg Tab.Er) 5 mg PO DAILY [facility] Last Admin: 12/13/20 08:22 Dose: 5 mg Documented by: Polyethylene Glycol (Polyethylene Glycol 3350 Powder 17 Gm Packet) 17 gm PO DAILY PRN PRN Reason: Constipation Timolol Maleate (Timolol Maleate 0.5% Ophth Soln 5 Ml Bottle) 0 ml EYELF DAILY [facility] Last Admin: 12/13/20 08:26 Dose: 1 drop Documented by: Discontinued Medications Ceftriaxone Sodium (Ceftriaxone 1 Gm Vial) 1 gm IVPUSH Q24H [facility] Last Admin: 12/10/20 18:15 Dose: 1 gm Documented by: Enoxaparin Sodium (Enoxaparin 30 Mg/0.3 Ml Syringe) 30 mg SUBCUT Q24H [facility] Last Admin: 12/10/20 18:57 Dose: Not Given Documented by: Enoxaparin Sodium (Enoxaparin 30 Mg/0.3 Ml Syringe) 30 mg SUBCUT Q24H [facility] Glipizide (Glipizide 5 Mg Tab.Er) 10 mg PO BID [facility] Last Admin: 12/12/20 08:12 Dose: 10 mg Documented by: Sodium Chloride (Normal Saline) 500 mls @ 500 mls/hr IV .BOLUS [facility] Last Admin: 12/10/20 18:15 Dose: 500 mls/hr Documented by: Sodium Chloride (Normal Saline) 1,000 mls @ 60 mls/hr IV ASDIRECTED [facility], [facility]–1983 Stop: 12/11/20 10:39 Last Admin: 12/10/20 18:15 Dose: 60 mls/hr Documented by: Losartan Potassium (Losartan 100 Mg Tab) 100 mg PO DAILY [facility] Last Admin: 12/11/20 08:30 Dose: Not Given Documented by: Losartan Potassium (Losartan 100 Mg Tab) 100 mg PO DAILY [facility] Last Admin: 12/13/20 08:23 Dose: Not Given Documented by: Non-Formulary Medication (Calcium Carb/D3/Magnesium/Zinc [Raghu Mag Zinc-D Tablet]) 1 tab PO DAILY [facility] Non-Formulary Medication (Iron [Iron]) 1 tab PO DAILY [facility] Non-Formulary Medication (Lutein [Lutein]) 20 mg PO DAILY HANNA - Exam General: Reports: Alert, Cooperative, No Acute Distress Neck: Reports: Supple, Trachea Midline, No JVD Lungs: Reports: Clear to Auscultation, Normal Respiratory Effort Cardiovascular: Reports: Regular Rate, Regular Rhythm GI/Abdominal Exam: Soft, Non-Tender Back Exam: Reports: Normal Inspection Extremities: Normal Inspection, Normal Range of Motion, Non-Tender, No Pedal Edema, Normal Capillary Refill Skin: Reports: Warm, Dry, Intact Neurological: Reports: No New Focal Deficit, Normal Speech Psy/Mental Status: Reports: Alert, Normal Affect, Normal Mood
[2020-12-13] MEDS: cefTRIAXone 1 GM Vial IVPUSH SCH (12:45)
[2020-12-13 13:56] VITALS: BP 138/70; PULSE 68
== END 2020-12-13 13:20 | DRG 872 ==
LOC: CC.ED 16:16 → OBSVTOIN 17:05 → INTOOBSV 17:05 → UNDOADMOB 17:05 → CC.MS 17:05 → OBSVTOIN 17:37 → CC.MS 17:37
PROVIDERS: ADMIT Nurse Practitioner; ATTEND Family Medicine
DX: A41.9 Sepsis, unspecified organism (principal); N39.0 Urinary tract infection, site not specified; N28.9 Disorder of kidney and ureter, unspecified; J30.9 Allergic rhinitis, unspecified; H35.30 Unspecified macular degeneration; H54.7 Unspecified visual loss; E78.00 Pure hypercholesterolemia, unspecified; M19.90 Unspecified osteoarthritis, unspecified site; M81.0 Age-related osteoporosis without current pathological fracture; G20 Parkinson's disease; E55.9 Vitamin D deficiency, unspecified; E11.9 Type 2 diabetes mellitus without complications; Z66 Do not resuscitate; I48.91 Unspecified atrial fibrillation; D51.0 Vitamin B12 deficiency anemia due to intrinsic factor deficiency; D64.9 Anemia, unspecified; I10 Essential (primary) hypertension; F02.80 Dementia in other diseases classified elsewhere, unspecified severity, without behavioral disturbance, psychotic disturbance, mood disturbance, and anxiety; Z79.84 Long term (current) use of oral hypoglycemic drugs; Z79.899 Other long term (current) drug therapy; Z98.49 Cataract extraction status, unspecified eye; Z86.73 Personal history of transient ischemic attack (TIA), and cerebral infarction without residual deficits; Z86.16 Personal history of COVID-19; Z85.3 Personal history of malignant neoplasm of breast; Z79.02 Long term (current) use of antithrombotics/antiplatelets
CPT/HCPCS: 36415; 80048; 82947; 83605; 85025; 86140; 87040; 99284; A9270-GY; J0696; J1650; J7030; J7040

== ENCOUNTER 2021-02-26 11:32 | Emergency (ER) | payer MEDICARE, BC ==
[2021-02-26] MEDS ORDERED: Ondansetron 4 MG Tab.DIS PO ONE (12:20)
[2021-02-26] MEDS ORDERED: Famotidine 20 MG/2 ML SDV IVPUSH PRN (13:25)
[2021-02-26] MEDS ORDERED: diphenhydrAMINE 50 MG/ML SDV IVPUSH PRN (13:25)
[2021-02-26] MEDS ORDERED: methylPREDNISolone Sodium Succinate 125 MG/2 ML SDV IVPUSH PRN (13:25)
[2021-02-26] MEDS ORDERED: EPINEPHrine 1 MG/ML SDV IM PRN (13:25)
[2021-02-26] MEDS ORDERED: Sodium Chloride 0.9% 10 ML Syringe FLUSH SCH (13:30)
[2021-02-26] MEDS ORDERED: Sodium Chloride 0.9% 1,000 ML IV SCH (13:30)
[2021-02-26 18:33] VITALS: BP 130/66; PULSE 62
--- NOTE | 2021-02-26 19:02 | EDM.PDOC ---
ED HPI GENERAL MEDICAL PROBLEM - General Chief Complaint: General Stated Complaint: COVID POSITIVE Time Seen by Provider: 02/26/21 11:45 Source of Information: Reports: Patient, Family, Other (penitentiary ) History Limitations: Reports: Other (patient herself has dementia; most history obtained from her sonTab, her chart and the nurses) - History of Present Illness INITIAL COMMENTS - FREE TEXT/NARRATIVE: Pleasant 89 year old female presents from [facility] as family was concerned she was getting dehydrated and didn't look well this am. She was diagnosed with COVID yesterday and thus placed in isolation. They were concerned she hadn't eaten much last night and didn't eat or drink anything this am because of her isolation. She has been hospitalized with sepsis / UTI in the past so this was a concern of theirs based on her presentation and possible dehydration as well as the positive COVID test. Her COVID symptoms were minimal with just a mild cough. She was afebrile and vitals were unremarkable on arrival. Patient has dementia so most of her history was obtained from her son, Tab, and I spoke to the penitentiary as well. Staff here also know patient well and was able to relay important history as well as her chart. She was in no respiratory distress and able to answer some questions when I examined her. Onset: Today Onset Date: 02/26/21 Duration: Hour(s): (patient diagnosed with COVID yesterday and son was concerned that she wasn't eating or drinking enough and that she seemed weak) Location: Reports: Chest Improves with: Reports: None Worsens with: Reports: None Associated Symptoms: Reports: Cough - Related Data Allergies Allergy/AdvReac Type Severity Reaction Status Date / Time No Known Allergies Allergy Verified 02/26/21 11:36 Home Meds: Home Meds Lutein 20 mg PO DAILY 06/18/14 [History] Valsartan/Hydrochlorothiazide [Valsartan-Hctz 160-12.5 mg Tab] 1 each PO DAILY 06/18/14 [History] metFORMIN [Glucophage] 1,000 mg PO BID 06/18/14 [History] timoloL maleate [Timoptic 0.5% O/S 0.3 ML] 1 drop EYELF DAILY 06/18/14 [History] Carbidopa/Levodopa [Carbidopa-Levodopa 25-100] 1.5 tab PO BID 06/19/14 [History] Clopidogrel [Plavix] 75 mg PO DAILY #30 tablet 06/19/14 [Rx] Calcium Carb/D3/Magnesium/Zinc [Raghu Mag Zinc-D Tablet] 1 tab PO DAILY 05/14/16 [History] Iron 1 tab PO DAILY 05/14/16 [History] Multivitamin [Multi-Vitamin Daily] 1 tab PO DAILY 05/14/16 [History] Bimatoprost [LUMIGAN 0.01% Ophth Soln] 1 drop EYEBOTH BEDTIME 12/16/19 [History] Acetaminophen [Tylenol Extra Strength] 1,000 mg PO Q6H PRN tablet 01/19/20 [Rx] Docusate Sodium [Colace] 100 mg PO BID PRN cap 01/19/20 [Rx] Losartan [Cozaar] 100 mg PO DAILY tablet 01/19/20 [Rx] Oxybutynin [Oxybutynin ER] 5 mg PO DAILY tab.er 01/19/20 [Rx] polyethylene glycoL 3350 [MiraLAX] 17 gm PO DAILY PRN packet 01/19/20 [Rx] Magnesium Hydroxide [Milk of Magnesia] 30 ml PO DAILY PRN 12/10/20 [History] Promethazine HCl 2 tsp PO Q4H PRN 12/10/20 [History] bisacodyL [Dulcolax] 10 mg RECTAL DAILY PRN 12/10/20 [History] Azithromycin [Zithromax] 1 gm PO BEDTIME 02/26/21 [History] Past Medical History HEENT History: Reports: Allergic Rhinitis, Cataract, Impaired Vision, Macular Degeneration Cardiovascular History: Reports: Afib, High Cholesterol, Hypertension Genitourinary History: Reports: Other (See Below) Other Genitourinary History: nocturia [employer] History: Reports: Musculoskeletal History: Reports: Arthritis, Osteoporosis, Other (See Below) Other Musculoskeletal History: arthralgia Neurological History: Reports: CVA, Parkinson's, TIA Endocrine/Metabolic History: Reports: Diabetes, Type II, Vitamin D Deficiency Hematologic History: Reports: Other (See Below) Other Hematologic History: pernicious anemia Oncologic (Cancer) History: Reports: Breast - Infectious Disease History Infectious Disease History: Reports: Novel Coronavirus - Past Surgical History HEENT Surgical History: Reports: Cataract Surgery Cardiovascular Surgical History: Reports: None Female Surgical History: Reports: Other (See Below) Other Female Surgeries/Procedures: enlarged uterus Endocrine Surgical History: Reports: None Neurological Surgical History: Reports: None Musculoskeletal Surgical History: Reports: None Social & Family History - Family History Family Medical History: No Pertinent Family History - Tobacco Use Tobacco Use Status *Q: Never Tobacco User Second Hand Smoke Exposure: No - Caffeine Use Caffeine Use: Reports: None - Recreational Drug Use Recreational Drug Use: No ED ROS GENERAL - Review of Systems Review Of Systems: See Below Constitutional: Reports: Weakness, Decreased Appetite HEENT: Reports: No Symptoms Respiratory: Reports: Cough Cardiovascular: Reports: No Symptoms Endocrine: Reports: No Symptoms GI/Abdominal: Reports: No Symptoms : Reports: Incontinence Musculoskeletal: Reports: No Symptoms Skin: Reports: No Symptoms Neurological: Reports: Other (mild cognitive deficits due to dementia) ED EXAM, GENERAL - Physical Exam Exam: See Below Exam Limited By: Other (patient has dementia) General Appearance: Alert, No Apparent Distress Ears: Normal External Exam Nose: Normal Inspection Throat/Mouth: Normal Inspection Head: Atraumatic Neck: Normal Inspection Respiratory/Chest: No Respiratory Distress, No Accessory Muscle Use, Chest Non- Tender, Decreased Breath Sounds Cardiovascular: Regular Rate, Rhythm, No Edema GI/Abdominal: Normal Bowel Sounds, Soft, Non-Tender (Female) Exam: Other (deferred) Rectal (Female) Exam: Other (deferred) Back Exam: Normal Inspection Extremities: Normal Inspection, Pedal Edema Neurological: Alert, Slow to Respond, Other (patient has dementia) Psychiatric: Flat Affect Skin Exam: Warm, Dry, Intact Lymphatic: No Adenopathy Course - Vital Signs Text/Narrative:: See nurses notes for vitals Last Recorded V/S: Last Vital Signs Temp 36.5 C 02/26/21 18:32 Pulse 62 02/26/21 18:32 Resp 18 02/26/21 18:32 BP 130/66 02/26/21 18:32 Pulse Ox 99 02/26/21 18:32 - Orders/Labs/Meds Orders: Active Orders 24 hr Category Date Time Status Vital Signs [RC] Q15M Care 02/26/21 13:25 Active Chest 1V Frontal [CR] Stat Exams 02/26/21 11:33 Taken CULTURE URINE [RM] Stat Lab 02/26/21 13:16 Received EPINEPHrine [Adrenalin] Med 02/26/21 13:25 Active 0.3 mg IM ASDIRECTED PRN Famotidine [Pepcid] Med 02/26/21 13:25 Active 20 mg IVPUSH ASDIRECTED PRN Sodium Chloride 0.9% [Normal Saline] 1,000 ml Med 02/26/21 13:30 Active IV ASDIRECTED Sodium Chloride 0.9% [Saline Flush] Med 02/26/21 13:30 Active 30 ml FLUSH ASDIRECTED diphenhydrAMINE [Benadryl] Med 02/26/21 13:25 Active 50 mg IVPUSH ASDIRECTED PRN methylPREDNISolone Sod Succ [Solu-MEDROL] Med 02/26/21 13:25 Active 125 mg IVPUSH ASDIRECTED PRN Medication Orders Diphenhydramine HCl (Diphenhydramine 50 Mg/Ml Sdv) 50 mg IVPUSH ASDIRECTED PRN PRN Reason: hypersensitivity reaction Epinephrine HCl (Epinephrine 1 Mg/Ml Sdv) 0.3 mg IM ASDIRECTED PRN PRN Reason: hypersensitivity reaction Famotidine (Famotidine 20 Mg/2 Ml Sdv) 20 mg IVPUSH ASDIRECTED PRN PRN Reason: hypersensitivity reaction Sodium Chloride (Normal Saline) 1,000 mls @ 500 mls/hr IV ASDIRECTED [facility] Last Admin: 02/26/21 13:50 Dose: 500 mls/hr Documented by: MACKRIC Methylprednisolone Sodium Succinate (Methylprednisolone Sodium Succinate 125 Mg/2 Ml Sdv) 125 mg IVPUSH ASDIRECTED PRN PRN Reason: hypersensitivity reaction Sodium Chloride (Sodium Chloride 0.9% 10 Ml Syringe) 30 ml FLUSH ASDIRECTED [facility] Labs: Laboratory Tests 02/26/21 02/26/21 02/26/21 Range/Units 11:54 11:54 13:16 WBC 8.3 (4.0-11.0) 10^3/uL RBC 2.96 L (4.00-5.50) x10^6/uL Hgb 9.2 L (12.0-16.0) g/dL Hct 27.8 L (37.0-47.0) % MCV 93.9 (83.0-97.0) fL MCH 31.1 (27.0-32.0) pg MCHC 33.1 (32.0-36.0) g/dL RDW Coeff of Andres 14.4 (11.0-15.0) % Plt Count 293 (150-400) 10^3/uL Immature Gran % (Auto) 0.1 (0.0-4.9) % Neut % (Auto) 64.8 (41-71) % Lymph % (Auto) 21.7 L (24-44) % Burnett % (Auto) 11.7 H (0-10) % Eos % (Auto) 1.3 (0-6) % Baso % (Auto) 0.4 (0-1) % Neut # (Auto) 5.36 (1.80-8.00) x10^3/uL Lymph # (Auto) 1.80 (0.60-5.00) 10^3/uL Burnett # (Auto) 0.97 (0.00-1.50) 10^3/uL Eos # (Auto) 0.11 (0.00-1.50) 10^3/uL Baso # (Auto) 0.03 (0.00-0.50) 10^3/uL Immature Gran # (Auto) 0.01 (0.00-0.49) 10^3/uL Sodium 135 L (136-145) mEq/L Potassium 4.0 (3.5-5.0) mEq/L Chloride 99 (98-106) mEq/L Carbon Dioxide 26 (21-32) mmol/L BUN 25 H (7-18) mg/dL Creatinine 1.6 H (0.6-1.0) mg/dL Est Cr Clr Drug Dosing 22.31 mL/min Estimated GFR (MDRD) 30 L (>=60) mL/min Glucose 134 H (75-99) mg/dL Calcium 9.7 (8.4-10.1) mg/dL Magnesium 1.9 (1.8-2.4) mg/dL Total Bilirubin 0.4 (0.0-1.0) mg/dL AST 11 L (15-37) U/L ALT 3 L (12-78) U/L Alkaline Phosphatase 83 (46-116) U/L Troponin I High Sens 8.8 (<=51) pg/mL C-Reactive Protein 9.1 H (0.2-0.8) mg/dL Total Protein 6.6 (6.4-8.2) g/dL Albumin 2.9 L (3.4-5.0) g/dL Urine Color Yellow (YELLOW) Urine Appearance Clear (CLEAR) Urine pH 6.0 (4.5-8.0) Ur Specific [place] 1.025 H (1.003-1.020) Urine Protein Trace H (NEGATIVE) mg/dL Urine Glucose (UA) Negative (NEGATIVE) mg/dL Urine Ketones Negative (NEGATIVE) mg/dL Urine Occult Blood Negative (NEGATIVE) Urine Nitrite Negative (NEGATIVE) Urine Bilirubin Negative (NEGATIVE) Urine Urobilinogen 0.2 (0.2-1.0) EU/dL Ur Leukocyte Esterase Trace H (NEGATIVE) Urine RBC Not seen (0-5) /HPF Urine WBC 10-20 H (0-5) /HPF Urine Yeast Moderate H (NOT SEEN) /HPF Urinalysis Comment Meds: Medications Generic Name Dose Route Start Last Admin Trade Name Freq PRN Reason Stop Dose Admin Diphenhydramine HCl 50 mg 02/26/21 13:25 Diphenhydramine 50 Mg/Ml Sdv IVPUSH ASDIRECTED PRN hypersensitivity reaction Epinephrine HCl 0.3 mg 02/26/21 13:25 Epinephrine 1 Mg/Ml Sdv IM ASDIRECTED PRN hypersensitivity reaction Famotidine 20 mg 02/26/21 13:25 Famotidine 20 Mg/2 Ml Sdv IVPUSH ASDIRECTED PRN hypersensitivity reaction Sodium Chloride 1,000 mls @ 500 mls/hr 02/26/21 13:30 02/26/21 13:50 Normal Saline IV 500 mls/hr ASDIRECTED HANNA Administration Methylprednisolone Sodium Succinate 125 mg 02/26/21 13:25 Methylprednisolone Sodium Succinate 125 Mg/2 Ml Sdv IVPUSH ASDIRECTED PRN hypersensitivity reaction Sodium Chloride 30 ml 02/26/21 13:30 Sodium Chloride 0.9% 10 Ml Syringe FLUSH ASDIRECTED HANNA Discontinued Medications Generic Name Dose Route Start Last Admin Trade Name Freq PRN Reason Stop Dose Admin CASIRIVIMAB/IMDEVIMAB 10 ml/ 110 mls @ 220 mls/hr 02/26/21 13:25 02/26/21 13:50 Sodium Chloride IV 02/26/21 13:54 220 mls/hr ONETIME ONE Administration Ondansetron HCl 4 mg 02/26/21 12:20 02/26/21 12:50 Ondansetron 4 Mg Tab.Dis PO 02/26/21 12:21 4 mg ONETIME ONE Administration - Re-Assessments/Exams Free Text/Narrative Re-Assessment/Exam: 02/26/21 19:07 Initial labs were drawn which were fairly unremarkable, based on her baseline numbers and UA looked clear as well. Initial exam fairly unremarkable, but she did seem weak and a bit disoriented. At this time, it was decided patient would benefit from some fluids and monoclonal antibodies after discussion with her son, Tab. After an hour or two on re-assessment, patient was doing well with oxygen saturations over 95% and was resting comfortably as we were monitoring her on safety cam. She was offered fluid and drank without issue or any stomach upset and urinated twice, so dehydration no longer a concern. She ate an a pplesauce quickly, so at this point, we fixed her a full supper tray and she ate it herself also without issue. At this point, I did call Tab again and told him she was doing well and could be transferred back, which he was in agreeance with after discussing her progress during the day. I initially called, but then did have Ni (BERNADETTE), call the [facility] and arrange for pick-up of patient . Departure - Departure Time of Disposition: 19:25 Disposition: DC/[facility]fer to [facility] Clinical Impression: COVID, Dehydration symptoms - Discharge Information Instructions: Symptoms of COVID-19 - CDC (04/19/2020) Referrals: Ger Clarke MD [Primary Care Provider] - Forms: ED Department Discharge Additional Instructions: Continue to encourage to offer fluids and nutrition throughout the day as you have been. Other orders and medications as per previous [place] instructions. Sepsis Event Note (ED) - Evaluation Sepsis Screening Result: No Definite Risk - Focused Exam Vital Signs: Vital Signs Temp Pulse Resp BP Pulse Ox 02/26/21 18:32 36.5 C 62 18 130/66 99 02/26/21 16:00 66 18 120/67 99 02/26/21 14:15 64 18 128/69 99 02/26/21 14:10 64 18 130/76 96 02/26/21 13:55 62 18 122/75 96 02/26/21 13:25 36.1 C 66 18 127/79 95 02/26/21 11:34 36.0 C L 75 16 130/63 93 L - My Orders Last 24 Hours: My Active Orders 02/26/21 11:33 Chest 1V Frontal [CR] Stat 02/26/21 13:16 CULTURE URINE [RM] Stat 02/26/21 13:25 Vital Signs [RC] Q15M EPINEPHrine [Adrenalin] 0.3 mg IM ASDIRECTED PRN Famotidine [Pepcid] 20 mg IVPUSH ASDIRECTED PRN diphenhydrAMINE [Benadryl] 50 mg IVPUSH ASDIRECTED PRN methylPREDNISolone Sod Succ [Solu-MEDROL] 125 mg IVPUSH ASDIRECTED PRN 02/26/21 13:30 Sodium Chloride 0.9% [Normal Saline] 1,000 ml IV ASDIRECTED Sodium Chloride 0.9% [Saline Flush] 30 ml FLUSH ASDIRECTED - Assessment/Plan Last 24 Hours: My Active Orders 02/26/21 11:33 Chest 1V Frontal [CR] Stat 02/26/21 13:16 CULTURE URINE [RM] Stat 02/26/21 13:25 Vital Signs [RC] Q15M EPINEPHrine [Adrenalin] 0.3 mg IM ASDIRECTED PRN Famotidine [Pepcid] 20 mg IVPUSH ASDIRECTED PRN diphenhydrAMINE [Benadryl] 50 mg IVPUSH ASDIRECTED PRN methylPREDNISolone Sod Succ [Solu-MEDROL] 125 mg IVPUSH ASDIRECTED PRN 02/26/21 13:30 Sodium Chloride 0.9% [Normal Saline] 1,000 ml IV ASDIRECTED Sodium Chloride 0.9% [Saline Flush] 30 ml FLUSH ASDIRECTED
== END 2021-02-26 19:50 | disposition home or self-care (01) ==
LOC: CC.ED 11:32
DX: U07.1 COVID-19 (principal); E86.0 Dehydration; I48.91 Unspecified atrial fibrillation; E11.9 Type 2 diabetes mellitus without complications; Z86.73 Personal history of transient ischemic attack (TIA), and cerebral infarction without residual deficits; Z79.84 Long term (current) use of oral hypoglycemic drugs
CPT/HCPCS: 36415; 71045; 80053; 81001; 83735; 84484; 85025; 86140; 87086; 93005; 99284; A9270; J7030; M0243; Q0243